=== PATIENT | female | born 1955 | race Two or more races ===

== ENCOUNTER 2023-06-27 18:00 | Emergency (ER) | payer MEDICARE, MEDICAID ==
[~2023-06-27] VITALS: Ht 152.4 cm; Wt 78.7 kg
[2023-06-27 18:10] VITALS: BP 183/93; PULSE 104; RESP 18; O2SAT 96
[2023-06-27] MEDS ORDERED: DexAMETHasone 4 MG TAB PO ONE (21:00)
[2023-06-27] MEDS ORDERED: HYDROcodone-ACET 5/325MG TAB PO ONE (21:00)
[2023-06-27] MEDS ORDERED: HYDR-4902 PO (21:07)
== END 2023-06-28 00:51 | disposition home or self-care (01) ==
LOC: ER 18:00
DX: M25.512 Pain in left shoulder (principal); M62.838 Other muscle spasm; I10 Essential (primary) hypertension; E11.9 Type 2 diabetes mellitus without complications
CPT/HCPCS: 72040; 73030

== ENCOUNTER → 2024-08-09 | Outpatient (CLI) | payer MEDICARE, MEDICAID ==
[~2024-08-09] MED LIST: ACET500T58 PO; BACDST PO; CEPH500C PO; HYDR-4902 PO; METH-1182 PO; NAPR-746 PO
[2024-08-09 10:43] LABS: Basophils # (auto) 0 10 ^3/uL (0-0.2); Basophils % (auto) 0.2 % (0.0-2.0); Eosinophils # (auto) 0.1 10 ^3/uL (0-0.8); Eosinophils % (auto) 0.9 % (0.0-7.0); Hematocrit 38.9 % (36.0-46.0); Hemoglobin 12.9 g/dL (12.2-16.2); Lymphocytes # (auto) 2.3 10 ^3/uL (0.4-5.4); Lymphocytes % (auto) 38.4 % (10.0-50.0); Mean Corpuscular Hemoglobin 29.5 pg (28.0-32.0); Mean Corpuscular Hgb Conc. 33.2 g/dL (32.0-36.0); Monocytes # (auto) 0.3 10 ^3/uL (0-1.3); Monocytes % (auto) 5.6 % (0.0-12.0); Neutrophils # (auto) 3.3 10 ^3/uL (1.6-8.6); Neutrophils % (auto) 54.9 % (37.0-80.0); Nucleated Red Blood Cells % 0.1 %; Platelet Count (auto) 235 10^3/uL (140-450); Red Blood Cells 4.38 10^6/uL (4.0-5.20); Red Cell Distribution Width 14.1 % (11.8-14.3); White Blood Cell 6.1 10^3/uL (4.4-10.8)
[2024-08-09 11:31] LABS: Alanine Aminotransferase 26 U/L (7-40); Alkaline Phosphatase 100 U/L (46-116); Anion Gap 9 (5-15); BUN/Creatinine Ratio 15.2 (10.0-20.0); Blood Urea Nitrogen 10 mg/dL (9-23); Calcium 9.8 mg/dL (8.7-10.4); Carbon Dioxide 26 mmol/L (20-31); Glucose 100 mg/dL (74-106); LDL Cholesterol 49 mg/dL (< 100); Total Protein 7.1 g/dL (5.7-8.2)
[2024-08-09 11:32] LABS: Albumin 4.7 g/dL (3.2-4.8); Aspartate Aminotransferase 21 U/L (13-40); Bilirubin, Total 0.4 mg/dL (0.2-1.0); Cholesterol 138 mg/dL (< 200)
[2024-08-09 11:35] LABS: Chloride 107 mmol/L (98-107); HDL Cholesterol 64 mg/dL (40-59); Potassium 4.4 mmol/L (3.5-5.1); Sodium 142 mmol/L (136-145); Triglycerides 167 mg/dL (< 150)
[2024-08-09 12:14] LABS: Uric Acid 7.8 mg/dL (3.1-7.8)
== END | disposition home or self-care (01) ==
LOC: LAB 09:47
PROVIDERS: ATTEND Internal Medicine
DX: M10.9 Gout, unspecified (principal); R79.89 Other specified abnormal findings of blood chemistry; Z79.899 Other long term (current) drug therapy
CPT/HCPCS: 36415; 80053; 80061; 82306; 82607; 83036; 84443; 84550; 85025

== ENCOUNTER 2024-09-08 06:22 | Inpatient (IN) | payer MEDICARE, MEDICAID ==
[2024-09-06 11:50] LABS: Basophils # (auto) 0 10 ^3/uL (0-0.2); Basophils % (auto) 0.2 % (0.0-2.0); Eosinophils # (auto) 0 10 ^3/uL (0-0.8); Eosinophils % (auto) 0.6 % (0.0-7.0); Hematocrit 39.2 % (36.0-46.0); Lymphocytes % (auto) 23.9 % (10.0-50.0); Mean Corpuscular Hemoglobin 29.2 pg (28.0-32.0); Mean Corpuscular Hgb Conc. 33.1 g/dL (32.0-36.0); Monocytes # (auto) 0.5 10 ^3/uL (0-1.3); Monocytes % (auto) 5.5 % (0.0-12.0); Neutrophils # (auto) 5.7 10 ^3/uL (1.6-8.6); Neutrophils % (auto) 69.8 % (37.0-80.0); Platelet Count (auto) 254 10^3/uL (140-450); Red Blood Cells 4.45 10^6/uL (4.0-5.20); Red Cell Distribution Width 14.2 % (11.8-14.3); White Blood Cell 8.2 10^3/uL (4.4-10.8)
[2024-09-06 12:07] LABS: Urine Bacteria FEW /hpf (None Seen); Urine Blood Negative /uL (Negative); Urine Clarity Clear (Clear); Urine Color Colorless (Yellow); Urine Hyaline Cast FEW /lpf (0 - 2); Urine Protein, UAD Negative (Negative); Urine Specific Gravity 1.008 (1.001-1.035); Urine Squamous Epithelial Cell FEW /hpf (<5); Urine Urobilinogen Normal (Negative); Urine WBC 10 /HPF (0-5); Urine pH 5.5 (5.0-9.0)
[2024-09-06 12:22] LABS: Alanine Aminotransferase 21 U/L (7-40); Albumin 4.8 g/dL (3.2-4.8); Alkaline Phosphatase 129 U/L (46-116); Anion Gap 10 (5-15); Aspartate Aminotransferase 17 U/L (13-40); BUN/Creatinine Ratio 16.4 (10.0-20.0); Bilirubin, Total 0.4 mg/dL (0.2-1.0); Blood Urea Nitrogen 10 mg/dL (9-23); Calcium 10.9 mg/dL (8.7-10.4); Carbon Dioxide 26 mmol/L (20-31); Chloride 103 mmol/L (98-107); Glucose 145 mg/dL (74-106); Potassium 4.3 mmol/L (3.5-5.1); Sodium 139 mmol/L (136-145); Total Protein 7.6 g/dL (5.7-8.2)
[~2024-09-08] VITALS: Ht 152.4 cm; Wt 82.6 kg
[~2024-09-08 06:22] MED LIST changes: -ACET500T58 PO; +ASPI81CH59 PO; +ATOR20TA50 PO; -BACDST PO; -CEPH500C PO; +GLIP5TAB21 PO; -HYDR-4902 PO; +LISI20TA56 PO; +METF-370 PO; -METH-1182 PO; -NAPR-746 PO
[2024-09-08] MEDS ORDERED: LIDOCAINE 1% INJ PF 5ML AMP ONE (07:50)
[2024-09-08] MEDS ORDERED: KETOROLAC TROMETH 30 MG/ML 1ML VIAL ONE (07:50)
[2024-09-08] MEDS ORDERED: ONDANSETRON HCL 4 MG/2 ML VIAL ONE (07:50)
[2024-09-08] MEDS ORDERED: PROPOFOL 10 MG/ML 20 ML IV ONE (07:50)
[2024-09-08] MEDS ORDERED: DexAMETHasone SOD PHOS 10MG/1ML VIAL INJ ONE ×2 (07:50→10:02)
[2024-09-08] MEDS ORDERED: ROCURONIUM 10MG/ML 10ML VIAL IV ONE (07:50)
[2024-09-08] MEDS ORDERED: SUGAMMADEX 200mg/2ml Vial (100MG/ML) IV ONE (07:50)
[2024-09-08] MEDS ORDERED: LIDOCAINE 2% (LOCAL ANESTH.) PF 5ml SDV ONE (07:50)
[2024-09-08] MEDS ORDERED: GLYCOPYRROLATE 0.2 MG/ML 1ML VIAL ONE (07:50)
[2024-09-08] MEDS ORDERED: fentaNYL CITRATE 100 MCG/2 ML VL ONE (07:51)
[2024-09-08] MEDS ORDERED: KETAMINE 50mg/ML 1ml syringe ONE (07:51)
[2024-09-08 08:00] LABS: INR 0.97 (0.9-1.15); Partial Thromboplastin Time 28.2 SEC (24.5-34.5); Prothrombin Time 10.3 sec (9.3-11.8)
[2024-09-08] MEDS: CELECOXIB 100 MG CAP ONE (08:32)
[2024-09-08] MEDS: GABAPENTIN 300 MG CAP ONE (08:33)
[2024-09-08] MEDS: CELECOXIB 100 MG CAP PO ONE (08:35)
[2024-09-08] MEDS: ACETAMINOPHEN IV 1000 MG/100ML (10MG/ML) IV ONE (08:35)
[2024-09-08] MEDS: GABAPENTIN 300 MG CAP PO ONE (08:35)
[2024-09-08] MEDS: ACETAMINOPHEN IV 100 ML IV ONE (09:01)
[2024-09-08] MEDS: ceFAZolin 2 GM/D5W50ml 50 ML IV ONE (09:02)
[2024-09-08] MEDS: LIDOCAINE W/ EPINEPHRINE 1% 20ML VIAL ONE (09:17)
[2024-09-08] MEDS: BUPIVACAINE 0.25% INJ 50ML VIAL ONE (09:17)
[2024-09-08] MEDS ORDERED: EPINEPHrine HCL 1 MG/1 ML AMP ONE (10:02)
[2024-09-08] MEDS ORDERED: D5W/SOD CHL 0.45%/KCL 20MEQ 1,000 ML IV SCH (11:15)
[2024-09-08 11:21] VITALS: PULSE 91; RESP 13; O2SAT 95
[2024-09-08] MEDS ORDERED: ONDANSETRON HCL 4 MG/2 ML VIAL IV PRN (11:30)
[2024-09-08] MEDS ORDERED: FLUMAZENIL 0.1 MG/ML INJ 10ML MDV IV PRN (11:30)
[2024-09-08] MEDS ORDERED: HYDROmorphone HCL 2 MG/ML VL/or syr IV PRN (11:30)
[2024-09-08] MEDS ORDERED: ePHEDrine SULFATE 50 MG/ML AMP IV PRN (11:30)
[2024-09-08] MEDS ORDERED: NALOXONE HCL 0.4 MG/ML VIAL IV PRN (11:30)
[2024-09-08] MEDS ORDERED: fentaNYL CITRATE 100 MCG/2 ML VL IV PRN (11:30)
[2024-09-08] MEDS ORDERED: hydrALAZINE HCL 20 MG/ML VL IV PRN ×2 (11:30→13:30)
--- NOTE | 2024-09-08 12:08 | DVHOP ---
DATE OF SURGERY: 09/08/2024 PREOPERATIVE DIAGNOSES: Extruded mesh, abdominal wall; recurrent ventral hernia. POSTOPERATIVE DIAGNOSES: Morbid obesity; adhesions, small bowel to anterior abdominal wall and foreign body adhesions to small bowel. OPERATIONS PERFORMED: * Excision of extruded infected mesh, abdominal wall. * Lysis of adhesions. * Repair enterotomies (x 2). * Repair of recurrent ventral hernia. SURGEON: Colin Cano MD ANESTHESIA: General endotracheal. ANESTHESIOLOGIST: Obinna Nicholson. DESCRIPTION OF PROCEDURE: Under general endotracheal anesthesia administered by Obinna Nicholson, the mesh was excised with circumferential incision deepened with electrocautery through much adipose tissue. The mesh was densely adherent to several loops of small bowel, which were adherent to the anterior abdominal wall. On palpation, the entire abdominal wall appears to be covered with a mesh, which was separate from the mesh that was excised. The loops of bowel were densely fused with the abdominal wall and mobilization of the bowel incurred two enterotomies that were approximately 1 cm in diameter. These were repaired immediately with no spill of enteric contents. The repair consisted of a 3-0 Monocryl suture for the inner layer and 3-0 Prolene suture for the outer layer. The lysis of adhesions was tedious and meticulously performed with great caution exercised so as not to incur any unnecessary bowel injuries. The bowel was inspected on numerous occasions to assure no further enterotomies that were in need of repair, none were encountered. The mesh having been removed resulted in visualization of the edge of the hernia, which essentially consisted of mesh fused with fascia and fused with the skin. Layer separation was then performed extensively. The wound was irrigated. Irrigant was aspirated. The repair of the defect, which measured approximately 12 cm in length and 6 cm in width. The edges were then repaired using #1 double-stranded Prolene suture, which was done in a matter of horizontal mattress suture creating a ledge of tissue, which was then secondarily sutured with interrupted Ethibond sutures. The crest of the tissues thus created protected the underlying bowel. For further protection of the bowel, a sheet of Interceed was placed on the bowels interposing the Interceed between the abdominal wall and the bowel as there was no omentum that was left within the peritoneal cavity visualized. A 10 mm Nitesh-Tipton drain was placed into the cavity of the subcutaneous tissues created by the layer separation technique. Subsequently, 2-0 Monocryl sutures were used for approximation of the subcutaneous tissues over the drain and metallic skin rizwana were used for approximation of skin edges. The patient remained hemodynamically stable throughout the procedure; however, due to the extensive nature of the procedure and the bowel repair, the patient will be remaining in the hospital. The patient's son was not in the waiting room and several attempts at contacting him at the phone number given were not answered. MD MYA García/LOLI TID: [id number] RECEIPT: [id number]
[2024-09-08] MEDS ORDERED: PHENYLEPHRINE HCL 10 MG/ML VL IV ONE (12:52)
--- NOTE | 2024-09-08 13:29 | DVHHP2 ---
Review of Systems Allergies: Coded Allergies: NO KNOWN ALLERGIES (Unverified , 06/27/23) Medications Current Medications Medications Dose Ordered Sig/Lili Route Start Time Stop Time Status Last Admin Dose Admin Potassium Chloride/Dextrose/ Sod Cl 1,000 ml @ 120 mls/hr Q8H20M IV 09/08/24 11:15 Levofloxacin/ Dextrose 100 ml @ 100 mls/hr DAILY IV 09/09/24 10:00 Hydromorphone HCl 1 mg Q3HPRN PRN IV 09/08/24 11:15 Pantoprazole Sodium 40 mg DAILY IV 09/09/24 10:00 Ondansetron HCl 4 mg Q4HPRN PRN IV 09/08/24 11:15 Oxycodone HCl 10 mg ONCE PRN PO 09/08/24 11:30 09/08/24 14:00 Exam Vital Signs Vital Signs Date Time Temp Pulse Resp B/P (MAP) Pulse Ox O2 Delivery O2 Flow Rate FiO2 09/08/24 11:21 91 13 95 Room Air 09/08/24 11:21 95 09/08/24 11:21 98.2 151/76 (101) 98.2 Labs/Xrays Labs Test 09/08/24 11:45 09/08/24 07:36 09/06/24 11:40 Range/Units POC Glucose 236 H 70-106 mg/dl Prothrombin Time 10.3 9.3-11.8 sec Prothrombin Time INR 0.97 0.9-1.15 Activated Partial Thromboplast Time 28.2 24.5-34.5 SEC White Blood Count 8.2 4.4-10.8 10^3/uL Red Blood Count 4.45 4.0-5.20 10^6/uL Hemoglobin 13.0 12.2-16.2 g/dL Hematocrit 39.2 36.0-46.0 % Mean Corpuscular Volume 88.0 80.0-100.0 fL Mean Corpuscular Hemoglobin 29.2 28.0-32.0 pg Mean Corpuscular Hemoglobin Concent 33.1 32.0-36.0 g/dL Red Cell Distribution Width 14.2 11.8-14.3 % Platelet Count 254 140-450 10^3/uL Mean Platelet Volume 9.0 6.9-10.8 fL Neutrophils (%) (Auto) 69.8 37.0-80.0 % Lymphocytes (%) (Auto) 23.9 10.0-50.0 % Monocytes (%) (Auto) 5.5 0.0-12.0 % Eosinophils (%) (Auto) 0.6 0.0-7.0 % Basophils (%) (Auto) 0.2 0.0-2.0 % Neutrophils # (Auto) 5.7 1.6-8.6 10 ^3/uL Lymphocytes # (Auto) 2.0 0.4-5.4 10 ^3/uL Monocytes # (Auto) 0.5 0-1.3 10 ^3/uL Eosinophils # (Auto) 0 0-0.8 10 ^3/uL Basophils # (Auto) 0 0-0.2 10 ^3/uL Nucleated Red Blood Cells 0.0 % Urine Color Colorless Yellow Urine Clarity Clear Clear Urine pH 5.5 5.0-9.0 Urine Specific [place] 1.008 1.001-1.035 Urine Protein Negative Negative Urine Ketones Negative Negative Urine Blood Negative Negative /uL Urine Nitrite Negative Negative Urine Bilirubin Negative Negative Urine Urobilinogen Normal Negative mg/dL Urine Leukocyte Esterase 2+ Negative /uL Urine RBC 1 0 - 4 /hpf Urine Microscopic WBC 10 H 0-5 /HPF Urine Squamous Epithelial Cells Few <5 /hpf Urine Bacteria Few H None Seen /hpf Urine Hyaline Casts Few 0 - 2 /lpf Urine Glucose Normal Normal mg/dL Sodium Level 139 136-145 mmol/L Potassium Level 4.3 3.5-5.1 mmol/L Chloride Level 103 98-107 mmol/L Carbon Dioxide Level 26 20-31 mmol/L Anion Gap 10 5-15 Blood Urea Nitrogen 10 9-23 mg/dL Creatinine 0.61 0.550-1.02 mg/dL Glomerular Filtration Rate Calc 97 >90 mL/min BUN/Creatinine Ratio 16.4 10.0-20.0 Serum Glucose 145 H 74-106 mg/dL Calcium Level 10.9 H 8.7-10.4 mg/dL Total Bilirubin 0.4 0.2-1.0 mg/dL Aspartate Amino Transferase (AST) 17 13-40 U/L Alanine Aminotransferase (ALT) 21 7-40 U/L Alkaline Phosphatase 129 H 46-116 U/L Total Protein 7.6 5.7-8.2 g/dL Albumin 4.8 3.2-4.8 g/dL Assessment/Plan Assessment/Plan see dictated note Plan discussed with: Patient Date of Service: September 08, 2024 Billing Provider: GRACIELA GORE MD Common Visit Codes: [id number] INP/OBS CARE (HIGH) GRACIELA GORE MD September 08, 2024 13:29
[2024-09-08] MEDS: D5W/SOD CHL 0.45%/KCL 20MEQ 1,000 ML IV SCH (13:30)
[2024-09-08] MEDS ORDERED: DEXTROSE (50%) 50ML SYRG IV PRN (13:30)
[2024-09-08] MEDS: oxyCODONE HCL 5MG TAB PO PRN (13:33)
--- NOTE | 2024-09-08 13:40 | DVHHP ---
ADMIT DATE: 09/08/2024 HISTORY OF PRESENT ILLNESS: The patient is a 69-year-old lady who is admitted after she underwent surgery for removal of infected hernia mesh and repair of a ventral hernia. The patient at this time denies any significant pain. No chest pain. No shortness of breath. No nausea or vomiting. REVIEW OF SYSTEMS: Review of rest of systems otherwise currently negative. PAST MEDICAL HISTORY: Significant for diabetes, hypertension and hyperlipidemia. MEDICATIONS: Include aspirin, Lipitor, glipizide, metformin and lisinopril. ALLERGIES: No known drug allergies. SOCIAL HISTORY: Quit smoking. Lives at home with her family. FAMILY HISTORY: Negative. PHYSICAL EXAMINATION: GENERAL: The patient is awake and alert. VITAL SIGNS: Temperature 98.2, pulse 91 per minute, blood pressure 151/76. SHEENT: Unremarkable. NECK: There is no JVD, no pedal edema. LUNGS: Equal bilaterally. No added sounds. CARDIOVASCULAR SYSTEM: S1 and S2 is regular without murmurs. ABDOMEN: Soft. Bowel sounds are hypoactive. There is a ERNESTINA drain in place. NEUROLOGIC: Nonfocal. MUSCULOSKELETAL: Normal. ASSESSMENT AND PLAN: * Diabetes mellitus for which the patient will be placed on sliding scale insulin and hemoglobin A1c will be checked. * Hypertension for which she will be put on p.r.n. hydralazine. * Obesity. * Hyperlipidemia. * Status post hernia repair surgery. The patient will be placed on pain medications and IV fluids. MD GAURAV Jett/KAREEM TID: [id number] RECEIPT: [id number]
[2024-09-08 16:38] VITALS: BP 132/82; PULSE 69; RESP 20; TEMP 97.4; O2SAT 94
[2024-09-08 17:00] VITALS: BP 132/82; PULSE 69; RESP 20; TEMP 97.7; O2SAT 94
[2024-09-08] MEDS: InsuLIN REG 1unit/0.01ml Soln (100units/ml) SC SCH (18:00)
[2024-09-08] MEDS: ACCU-CHEK COMFORT CURVE STRIP VI SCH (18:00)
[2024-09-08] MEDS: HYDROmorphone HCL 2 MG/ML VL/or syr IV PRN (18:55)
[2024-09-08] MEDS: ONDANSETRON HCL 4 MG/2 ML VIAL IV PRN (20:40)
[2024-09-08 21:00] VITALS: BP 116/71; PULSE 71; RESP 18; TEMP 97.9; O2SAT 92
[2024-09-09] VITALS (7 sets, daily range): BP systolic 99–123; BP diastolic 66–75; PULSE 62–79; RESP 16–18; TEMP 97.3–98.7; O2SAT 90–98
[2024-09-09 05:54] LABS: Basophils # (auto) 0 10 ^3/uL (0-0.2); Basophils % (auto) 0.1 % (0.0-2.0); Eosinophils # (auto) 0 10 ^3/uL (0-0.8); Hematocrit 32.3 % (36.0-46.0); Hemoglobin 10.7 g/dL (12.2-16.2); Lymphocytes # (auto) 1.1 10 ^3/uL (0.4-5.4); Lymphocytes % (auto) 8.7 % (10.0-50.0); Mean Corpuscular Hemoglobin 29.1 pg (28.0-32.0); Mean Corpuscular Volume 88.2 fL (80.0-100.0); Monocytes # (auto) 0.7 10 ^3/uL (0-1.3); Monocytes % (auto) 5.4 % (0.0-12.0); Neutrophils # (auto) 11.2 10 ^3/uL (1.6-8.6); Neutrophils % (auto) 85.8 % (37.0-80.0); Platelet Count (auto) 216 10^3/uL (140-450); Red Blood Cells 3.67 10^6/uL (4.0-5.20); Red Cell Distribution Width 14.2 % (11.8-14.3); White Blood Cell 13.1 10^3/uL (4.4-10.8)
[2024-09-09 06:24] LABS: Alanine Aminotransferase 11 U/L (7-40); Albumin 3.8 g/dL (3.2-4.8); Alkaline Phosphatase 90 U/L (46-116); Anion Gap 10 (5-15); BUN/Creatinine Ratio 23.3 (10.0-20.0); Bilirubin, Total 0.4 mg/dL (0.2-1.0); Blood Urea Nitrogen 14 mg/dL (9-23); Carbon Dioxide 23 mmol/L (20-31); Chloride 104 mmol/L (98-107); Potassium 4.4 mmol/L (3.5-5.1); Sodium 137 mmol/L (136-145)
[2024-09-09 06:34] LABS: Aspartate Aminotransferase 12 U/L (13-40); Calcium 8.4 mg/dL (8.7-10.4); Glucose 231 mg/dL (74-106)
--- NOTE | 2024-09-09 06:35 | DVH ---
EXAM: XR Chest, 1 View CLINICAL INDICATION: htn TECHNIQUE: Frontal view of the chest. COMPARISON: None FINDINGS: LUNGS AND PLEURAL SPACES: See below. HEART: Cardiomegaly with mild congestion. MEDIASTINUM: Unremarkable. Normal mediastinal contour. BONES/JOINTS: Unremarkable. No acute fracture. OTHER FINDINGS: . IMPRESSION: Cardiomegaly with mild congestion.
[2024-09-09] MEDS: PANTOPRAZOLE 40 MG/10 ML VIAL INJ IV SCH (09:36)
[2024-09-09] MEDS: levoFLOXacin 500MG 100 ML IV SCH (09:36)
--- NOTE | 2024-09-09 10:19 | DVHPN2 ---
Progress Note Date Seen: September 09, 2024 Medical Necessity Reason Pt with a Central, PICC or Fol: No Subjective Patient reports: No new complaints Review of Systems: HEENT:Normal, CVS:Normal, RESPIRATORY:Normal, GI:Normal, :Normal, MSK:Normal, NEURO:Normal Objective vital signs Vital Sign Date Time Temp Pulse Resp B/P (MAP) Pulse Ox O2 Delivery O2 Flow Rate FiO2 09/09/24 08:41 97.3 65 17 123/70 (87) 98 97.3 09/09/24 08:00 Room Air* 0 21 Total Intake and Output 09/08/24 09/08/24 09/09/24 15:00 23:00 07:00 Intake Total 250 ml 200 ml 750 ml Output Total 30 ml 5 ml Balance 220 ml 195 ml 750 ml medications Current Medications Medications Dose Ordered Sig/Lili Route Start Time Stop Time Status Last Admin Dose Admin Levofloxacin/ Dextrose 100 ml @ 100 mls/hr DAILY IV 09/09/24 10:00 09/09/24 09:36 100 MLS/HR Hydromorphone HCl 1 mg Q3HPRN PRN IV 09/08/24 11:15 09/08/24 18:55 1 MG Pantoprazole Sodium 40 mg DAILY IV 09/09/24 10:00 09/09/24 09:36 40 MG Ondansetron HCl 4 mg Q4HPRN PRN IV 09/08/24 11:15 09/08/24 20:40 4 MG Potassium Chloride/Dextrose/ Sod Cl 1,000 ml @ 100 mls/hr Q10H IV 09/08/24 13:30 09/09/24 09:37 100 MLS/HR Diagnostic Test (Pha) 1 strip Q6HR 09/08/24 18:00 09/09/24 05:35 1 STRIP Insulin Human Regular Q6HR SC 09/08/24 18:00 09/09/24 05:39 4 UNITS Dextrose 50 ml UD PRN IV 09/08/24 13:30 Hydralazine HCl 10 mg Q6HP PRN IV 09/08/24 13:30 Examination: GENERAL:Normal, HEENT:Normal, NECK:Normal, LUNGS:Normal, CVS:Normal, ABDOMEN:Normal, ABDOMEN:Abnormal (matthew drain), MSK:Normal, SKIN:Normal, NEURO:Normal, :Normal laboratory and microbiology Laboratory Tests 09/09/24 05:35 Test 09/09/24 05:35 Range/Units Serum Glucose 231 H 74-106 mg/dL Microbiology Date/Time Source Procedure Growth Status 09/08/24 10:53 Surgery Anaerobic Culture Pending Resulted 09/08/24 10:53 Surgery Aerobic Culture - Preliminary Resulted Problem List/Assessment/Plan Problem List/Assessment/Plan * Diabetes mellitus for which the patient will be placed on sliding scale insulin and hemoglobin A1c will be checked. * Hypertension for which she will be put on p.r.n. hydralazine. * Obesity. * Hyperlipidemia. * Status post hernia repair surgery. The patient will be placed on pain medications and IV fluids- staph aureus- id pending, iv vanc empiric, levaquin advance care planning- full code- time spent 18 mins Plan discussed with: Patient My Orders My Orders Orders - GRACIELA GORE MD Procedure Category Date Status Time D5w/Sod Chl 0.45%/Kcl PHA 09/08/24 In Process 20meq 13:30 Admit ADMIT 09/08/24 Transmitted 13:24 Glucose Blood PHA 09/08/24 In Process (Accu-Chek Comfort 18:00 Insulin R (Human) PHA 09/08/24 In Process (Insulin R) 18:00 Dextrose 50% Syringe PHA 09/08/24 In Process 13:30 Hydralazine Injection PHA 09/08/24 In Process (Apresoline Inject 13:30 Chest Portable XY 09/09/24 Resulted 06:00 Pt Request For Service PT 09/09/24 Verified 10:16 Vancomycin Per PHA 09/09/24 Verified Pharmacy 10:30 Basic Metabolic Panel LAB 09/10/24 Verified 06:00 Complete Blood Count LAB 09/10/24 Verified 06:00 Date of Service: September 09, 2024 Billing Provider: GRACIELA GORE MD Common Visit Codes: [id number] INP/OBS CARE(HIGH) Secondary Visit Codes: [id number] CARE PLAN 30 MINUTES GRACIELA GORE MD September 09, 2024 10:19
[2024-09-09] MEDS ORDERED: VANCOMYCIN PER PHARMACY 0 MG IV SCH (10:30)
[2024-09-09] MEDS: VANCOMYCIN 1GM/200ML PM 200 ML IV ONE (10:53)
--- NOTE | 2024-09-09 13:18 | DVHPN2 ---
Progress Note Date Seen: September 09, 2024 Medical Necessity Reason Pt with a Central, PICC or Fol: No Objective vital signs Vital Sign Date Time Temp Pulse Resp B/P (MAP) Pulse Ox O2 Delivery O2 Flow Rate FiO2 09/09/24 12:40 97.3 62 16 120/75 (90) 93 97.3 09/09/24 08:00 Room Air* 0 21 Total Intake and Output 09/08/24 09/08/24 09/09/24 15:00 23:00 07:00 Intake Total 250 ml 200 ml 750 ml Output Total 30 ml 5 ml Balance 220 ml 195 ml 750 ml medications Current Medications Medications Dose Ordered Sig/Lili Route Start Time Stop Time Status Last Admin Dose Admin Levofloxacin/ Dextrose 100 ml @ 100 mls/hr DAILY IV 09/09/24 10:00 09/09/24 09:36 100 MLS/HR Hydromorphone HCl 1 mg Q3HPRN PRN IV 09/08/24 11:15 09/08/24 18:55 1 MG Pantoprazole Sodium 40 mg DAILY IV 09/09/24 10:00 09/09/24 09:36 40 MG Ondansetron HCl 4 mg Q4HPRN PRN IV 09/08/24 11:15 09/08/24 20:40 4 MG Potassium Chloride/Dextrose/ Sod Cl 1,000 ml @ 100 mls/hr Q10H IV 09/08/24 13:30 09/09/24 09:37 100 MLS/HR Diagnostic Test (Pha) 1 strip Q6HR 09/08/24 18:00 09/09/24 12:00 1 STRIP Insulin Human Regular Q6HR SC 09/08/24 18:00 09/09/24 12:01 3 UNITS Dextrose 50 ml UD PRN IV 09/08/24 13:30 Hydralazine HCl 10 mg Q6HP PRN IV 09/08/24 13:30 Vancomycin HCl 0 ml @ 0 mls/hr UD IV 09/09/24 10:30 laboratory and microbiology Laboratory Tests 09/09/24 05:35 Test 09/09/24 05:35 Range/Units Serum Glucose 231 H 74-106 mg/dL Problem List/Assessment/Plan Problem List/Assessment/Plan 09/09/24 feels well, afebrile, normotensive, abdomen soft, nn distended, appropriately tender, explained her operation to her , no flatus or BM, she needs to remain NPO except ice chips till bowel activity returns. Plan discussed with: Patient YANELIS TURNER MD September 09, 2024 13:18
[2024-09-09] MEDS: VANCOMYCIN 750MG KIT 100 ML IV SCH (23:03)
[2024-09-10] VITALS (7 sets, daily range): BP systolic 95–128; BP diastolic 45–82; PULSE 84–108; RESP 16–18; TEMP 97.3–102.1; O2SAT 94–100
[2024-09-10] MEDS ORDERED: ACETAMINOPHEN 325 MG TAB PO PRN (05:15)
[2024-09-10] MEDS: ACETAMINOPHEN 650 MG RECT SUPP PR PRN (05:25)
[2024-09-10 06:27] LABS: Chloride 103 mmol/L (98-107); Potassium 4.3 mmol/L (3.5-5.1); Sodium 138 mmol/L (136-145)
[2024-09-10 06:28] LABS: Anion Gap 11 (5-15); Calcium 8.4 mg/dL (8.7-10.4); Carbon Dioxide 24 mmol/L (20-31)
[2024-09-10 06:33] LABS: Blood Urea Nitrogen 12 mg/dL (9-23)
[2024-09-10 06:41] LABS: Glucose 162 mg/dL (74-106)
[2024-09-10 07:01] LABS: Basophils # (auto) 0 10 ^3/uL (0-0.2); Basophils % (auto) 0.4 % (0.0-2.0); Eosinophils # (auto) 0 10 ^3/uL (0-0.8); Eosinophils % (auto) 0.1 % (0.0-7.0); Hemoglobin 11.6 g/dL (12.2-16.2); Lymphocytes # (auto) 1.6 10 ^3/uL (0.4-5.4); Lymphocytes % (auto) 12.6 % (10.0-50.0); Mean Corpuscular Hemoglobin 29.8 pg (28.0-32.0); Mean Corpuscular Hgb Conc. 33.2 g/dL (32.0-36.0); Mean Corpuscular Volume 89.7 fL (80.0-100.0); Monocytes # (auto) 1.1 10 ^3/uL (0-1.3); Monocytes % (auto) 8.2 % (0.0-12.0); Neutrophils # (auto) 10.2 10 ^3/uL (1.6-8.6); Neutrophils % (auto) 78.7 % (37.0-80.0); Platelet Count (auto) 190 10^3/uL (140-450); Red Cell Distribution Width 14.3 % (11.8-14.3); White Blood Cell 12.9 10^3/uL (4.4-10.8)
--- NOTE | 2024-09-10 11:01 | DVHPN2 ---
Subjective Date Seen: September 10, 2024 Post op day Post op day: 2 Patient reports: No new complaints General: Normal HNT: Normal Cardiovascular: Normal Respiratory: Normal Gastrointestinal: Normal Genitourinary: Normal Musculoskeletal: Normal Neurological: Normal Objective Vitals Vital Sign Date Time Temp Pulse Resp B/P (MAP) Pulse Ox O2 Delivery O2 Flow Rate FiO2 09/10/24 07:34 96 Room Air* 0 21 09/10/24 06:25 99.0 09/10/24 05:00 108 18 106/56 (73) Total Intake and Output 09/09/24 09/09/24 09/10/24 15:00 23:00 07:00 Intake Total 0 ml 1400 ml Balance 0 ml 1400 ml Medications Current Medications Medications Dose Ordered Sig/Lili Route Start Time Stop Time Status Last Admin Dose Admin Levofloxacin/ Dextrose 100 ml @ 100 mls/hr DAILY IV 09/09/24 10:00 09/10/24 09:32 100 MLS/HR Hydromorphone HCl 1 mg Q3HPRN PRN IV 09/08/24 11:15 09/09/24 23:54 1 MG Pantoprazole Sodium 40 mg DAILY IV 09/09/24 10:00 09/10/24 09:32 40 MG Ondansetron HCl 4 mg Q4HPRN PRN IV 09/08/24 11:15 09/08/24 20:40 4 MG Potassium Chloride/Dextrose/ Sod Cl 1,000 ml @ 100 mls/hr Q10H IV 09/08/24 13:30 09/10/24 05:29 100 MLS/HR Diagnostic Test (Pha) 1 strip Q6HR 09/08/24 18:00 09/10/24 05:49 1 STRIP Insulin Human Regular Q6HR SC 09/08/24 18:00 09/10/24 05:53 3 UNITS Dextrose 50 ml UD PRN IV 09/08/24 13:30 Hydralazine HCl 10 mg Q6HP PRN IV 09/08/24 13:30 Vancomycin HCl 0 ml @ 0 mls/hr UD IV 09/09/24 10:30 Acetaminophen 650 mg Q6HP PRN SC 09/10/24 05:15 09/10/24 05:25 650 MG Vancomycin HCl 150 ml @ 150 mls/hr Q12H IV 09/10/24 11:00 General: Normal, Well developed, Obese Head/Eyes: Normal ENT: Normal Neck: Normal Lungs: Normal, Normal inspection Cardiovascular: Normal, Regular rate and rhythm, Normal heart sound Abdominal: Normal, Soft Skin: Other (abdominal wound clean dry and intact ) Labs and Microbiology Laboratory Tests 09/10/24 04:55 Test 09/10/24 04:55 Range/Units Serum Glucose 162 H 74-106 mg/dL Ass/Plan Problem List 09/09/24 feels well, afebrile, normotensive, abdomen soft, nn distended, appropriately tender, explained her operation to her , no flatus or BM, she needs to remain NPO except ice chips till bowel activity returns. Assessment/Plan s/p Excision of extruded infected mesh, abdominal wall. * Lysis of adhesions. * Repair enterotomies (x 2). * Repair of recurrent ventral hernia. Post op day 2 wound clean dry and intact abdomen soft , non distended, appropriately tender denies nausea Plan: clear liquids no more than 50cc ambulate wound dressing may stay off Prognosis: Good Plan discussed with Dr. Cano Visit Coding Surgery Date of Service if different f: September 10, 2024 Billing Provider: YANELIS CANO MD Surgery Visit Codes: [id number] INP/OBS CARE(HIGH) ASHLEY POPE NP September 10, 2024 11:01
[2024-09-10] MEDS: VANCOMYCIN 750mg/150ml 150 ML IV SCH (11:23)
[2024-09-10] MEDS: MEROPENEM 1GM IVPB 50 ML IV SCH (15:31)
--- NOTE | 2024-09-10 17:56 | DVHPN2 ---
Subjective in bed resting Changes from previous H/P or p: No Changes Objective Vitals Vital Signs Date Time Temp Pulse Resp B/P (MAP) Pulse Ox O2 Delivery O2 Flow Rate FiO2 09/10/24 17:22 98.3 84 16 118/59 (78) 94 98.3 09/10/24 07:34 Room Air* 0 21 Intake/Output Intake and Output 09/10/24 07:00 Intake Total 1400 ml Balance 1400 ml Intake Oral 800 ml IV Total 600 ml # Voids 10 General Appearance: Alert, Oriented X3 Lungs: Clear to auscultation Cardiovascular: Regular rate, Normal S1 Medications Current Medications Medications Dose Ordered Sig/Lili Route Start Time Stop Time Status Last Admin Dose Admin Levofloxacin/ Dextrose 100 ml @ 100 mls/hr DAILY IV 09/09/24 10:00 09/10/24 09:32 100 MLS/HR Hydromorphone HCl 1 mg Q3HPRN PRN IV 09/08/24 11:15 09/10/24 16:49 1 MG Pantoprazole Sodium 40 mg DAILY IV 09/09/24 10:00 09/10/24 09:32 40 MG Ondansetron HCl 4 mg Q4HPRN PRN IV 09/08/24 11:15 09/08/24 20:40 4 MG Potassium Chloride/Dextrose/ Sod Cl 1,000 ml @ 100 mls/hr Q10H IV 09/08/24 13:30 09/10/24 05:29 100 MLS/HR Diagnostic Test (Pha) 1 strip Q6HR 09/08/24 18:00 09/10/24 17:49 1 STRIP Insulin Human Regular Q6HR SC 09/08/24 18:00 09/10/24 17:49 3 UNITS Dextrose 50 ml UD PRN IV 09/08/24 13:30 Hydralazine HCl 10 mg Q6HP PRN IV 09/08/24 13:30 Vancomycin HCl 0 ml @ 0 mls/hr UD IV 09/09/24 10:30 Acetaminophen 650 mg Q6HP PRN ID 09/10/24 05:15 09/10/24 05:25 650 MG Vancomycin HCl 150 ml @ 150 mls/hr Q12H IV 09/10/24 11:00 09/10/24 11:23 150 MLS/HR Meropenem 50 ml @ 17 mls/hr Q8H IV 09/10/24 16:00 09/10/24 15:31 17 MLS/HR Laboratory Results Laboratory Tests 09/10/24 04:55 Chemistry Test 09/10/24 04:55 Calcium Level 8.4 mg/dL (8.7-10.4) L Urinalysis Test 09/06/24 11:40 Urine Color Colorless (Yellow) Urine Clarity Clear (Clear) Urine pH 5.5 (5.0-9.0) Urine Specific [place] 1.008 (1.001-1.035) Urine Protein Negative (Negative) Urine Ketones Negative (Negative) Urine Blood Negative /uL (Negative) Urine Nitrite Negative (Negative) Urine Bilirubin Negative (Negative) Urine Urobilinogen Normal mg/dL (Negative) Urine Leukocyte Esterase 2+ /uL (Negative) Urine RBC 1 /hpf (0 - 4) Urine Microscopic WBC 10 /HPF (0-5) H Urine Squamous Epithelial Cells Few /hpf (<5) Urine Bacteria Few /hpf (None Seen) H Urine Hyaline Casts Few /lpf (0 - 2) Urine Glucose Normal mg/dL (Normal) Microbiology Microbiology Date/Time Source Procedure Growth Status 09/08/24 10:53 Surgery Anaerobic Culture - Preliminary Resulted 09/08/24 10:53 Aerobic Culture - Final Methicillin Resistant S.aureus Escherichia coli - ESBL Proteus mirabilis#2 Resulted Assessment/Plan Assessment/Plan * Diabetes mellitus for which the patient will be placed on sliding scale insulin and hemoglobin A1c will be checked. * Hypertension for which she will be put on p.r.n. hydralazine. * Obesity. * Hyperlipidemia. * Status post hernia repair surgery. The patient will be placed on pain medications and IV fluids- staph aureus- id pending, iv vanc empiric, levaquin Plan discussed with: Patient My Orders Orders - HENRI SHORT MD Procedure Category Date Status Time * Infectious Reynolds- CONS 09/10/24 Transmitted Ayush Sullivan 14:56 Meropenem 1gm Ivpb PHA 09/10/24 In Process (Merrem 1gm/ Ns) 16:00 Date of Service: September 10, 2024 Billing Provider: HENRI SHORT MD Common Visit Codes: [id number] INP/OBS CARE(HIGH) HENRI SHORT MD September 10, 2024 17:56
--- NOTE | 2024-09-10 22:20 | DVHINCON2 ---
Date of service: September 10, 2024 Family History: Colon cancer G8 MOTHER Allergies: Coded Allergies: NO KNOWN ALLERGIES (Unverified , 06/27/23) Home Meds Reported Medications Aspirin (Aspirin Low Dose) 81 Mg Chw, 81 MG PO DAILY, TAB.CHEW 09/06/24 Atorvastatin Calcium (ATORVASTATIN CALCIUM) 20 Mg Tab, 20 MG PO DAILY, TAB 09/06/24 Lisinopril (Lisinopril) 20 Mg Tab, 20 MG PO DAILY, TAB 09/06/24 Glipizide (Glipizide) 5 Mg Tab, 5 MG PO BID, TAB 09/06/24 Metformin Hydrochloride (Metformin Hcl) 500 Mg Tab, 500 MG PO BID, TAB 09/06/24 Current Medications Current Medications Medications (Trade) Dose Ordered Sig/Lili Route PRN Reason Start Time Stop Time Status Last Admin Vancomycin HCl 100 ml @ 100 mls/hr Q12H IV 09/09/24 23:00 09/10/24 10:55 DC 09/09/24 23:03 Acetaminophen (Tylenol Tablet) 650 mg Q6HP PRN PO PAIN SCALE 1-3 OR TEMP>100.4 09/10/24 05:15 09/10/24 05:15 DC Acetaminophen (Tylenol Suppository) 650 mg Q6HP PRN CO PAIN SCALE 1-3 OR TEMP>100.4 09/10/24 05:15 09/10/24 05:25 Vancomycin HCl 150 ml @ 150 mls/hr Q12H IV 09/10/24 11:00 09/10/24 11:23 Meropenem 50 ml @ 17 mls/hr Q8H IV 09/10/24 16:00 09/10/24 15:31 Vital Signs Vital Signs Date Time Temp Pulse Resp B/P (MAP) Pulse Ox O2 Delivery O2 Flow Rate FiO2 09/10/24 21:25 92 18 128/82 09/10/24 21:00 97.3 96 97.3 09/10/24 07:34 Room Air* 0 21 Labs/Diagnostic Data Labs Test 09/10/24 17:26 09/10/24 04:55 09/09/24 05:35 09/08/24 07:36 Range/Units POC Glucose 185 H 70-106 mg/dl White Blood Count 12.9 H 4.4-10.8 10^3/uL Red Blood Count 3.90 L 4.0-5.20 10^6/uL Hemoglobin 11.6 L 12.2-16.2 g/dL Hematocrit 35.0 L 36.0-46.0 % Mean Corpuscular Volume 89.7 80.0-100.0 fL Mean Corpuscular Hemoglobin 29.8 28.0-32.0 pg Mean Corpuscular Hemoglobin Concent 33.2 32.0-36.0 g/dL Red Cell Distribution Width 14.3 11.8-14.3 % Platelet Count 190 140-450 10^3/uL Mean Platelet Volume 10.0 6.9-10.8 fL Neutrophils (%) (Auto) 78.7 37.0-80.0 % Lymphocytes (%) (Auto) 12.6 10.0-50.0 % Monocytes (%) (Auto) 8.2 0.0-12.0 % Eosinophils (%) (Auto) 0.1 0.0-7.0 % Basophils (%) (Auto) 0.4 0.0-2.0 % Neutrophils # (Auto) 10.2 H 1.6-8.6 10 ^3/uL Lymphocytes # (Auto) 1.6 0.4-5.4 10 ^3/uL Monocytes # (Auto) 1.1 0-1.3 10 ^3/uL Eosinophils # (Auto) 0 0-0.8 10 ^3/uL Basophils # (Auto) 0 0-0.2 10 ^3/uL Nucleated Red Blood Cells 0.0 % Sodium Level 138 136-145 mmol/L Potassium Level 4.3 3.5-5.1 mmol/L Chloride Level 103 98-107 mmol/L Carbon Dioxide Level 24 20-31 mmol/L Anion Gap 11 5-15 Blood Urea Nitrogen 12 9-23 mg/dL Creatinine 0.60 0.550-1.02 mg/dL Glomerular Filtration Rate Calc 97 >90 mL/min BUN/Creatinine Ratio 20.0 10.0-20.0 Serum Glucose 162 H 74-106 mg/dL Calcium Level 8.4 L 8.7-10.4 mg/dL Hemoglobin A1c 6.6 H <5.7 % A1C Total Bilirubin 0.4 0.2-1.0 mg/dL Aspartate Amino Transferase (AST) 12 L 13-40 U/L Alanine Aminotransferase (ALT) 11 7-40 U/L Alkaline Phosphatase 90 46-116 U/L Total Protein 6.0 5.7-8.2 g/dL Albumin 3.8 3.2-4.8 g/dL Prothrombin Time 10.3 9.3-11.8 sec Prothrombin Time INR 0.97 0.9-1.15 Activated Partial Thromboplast Time 28.2 24.5-34.5 SEC Test 09/06/24 11:40 Range/Units Urine Color Colorless Yellow Urine Clarity Clear Clear Urine pH 5.5 5.0-9.0 Urine Specific [place] 1.008 1.001-1.035 Urine Protein Negative Negative Urine Ketones Negative Negative Urine Blood Negative Negative /uL Urine Nitrite Negative Negative Urine Bilirubin Negative Negative Urine Urobilinogen Normal Negative mg/dL Urine Leukocyte Esterase 2+ Negative /uL Urine RBC 1 0 - 4 /hpf Urine Microscopic WBC 10 H 0-5 /HPF Urine Squamous Epithelial Cells Few <5 /hpf Urine Bacteria Few H None Seen /hpf Urine Hyaline Casts Few 0 - 2 /lpf Urine Glucose Normal Normal mg/dL Microbiology Date/Time Source Procedure Growth Status 09/08/24 10:53 Surgery Anaerobic Culture - Preliminary Resulted 09/08/24 10:53 Aerobic Culture - Final Methicillin Resistant S.aureus Escherichia coli - ESBL Proteus mirabilis#2 Resulted Problems(with codes): (1) Abscess, toe (2) Post surgical complication (3) Intractable pain Plan/Recommendation ASSESSMENT AND PLAN: ID Problem List: - Diabetes mellitus - Hypertension - Hyperlipidemia - Cardiomyopathy with mild congestion - Recurrent ventral hernia, mesh infection status post mesh removal - MRSA, ESBL E. coli, and Proteus mesh infection Assessment This is a 69 year old female with a history of diabetes mellitus, hypertension, hyperlipidemia, and cardiomyopathy with mild congestion, who presents status post excision of extruded infected mesh (ventral hernia repair), lysis of adhesions, repair of enterotomies, and repair of recurrent ventral hernia on September 08. Mesh was removed and cultures from the mesh are growing MRSA, ESBL E. coli, and Proteus. Patient has no ongoing signs or concerns for systemic infection after mesh removal. Relevant labs: Hemoglobin A1c: 6.6 Sodium: 137 BUN: 14 Creatinine: 0.60 Plan: - Continue vancomycin and meropenem IV while inpatient - Monitor for ongoing/worsening infection; obtain repeat blood cultures to ensure clearance - Once ready for discharge, transition to oral antibiotics: Bactrim DS one tablet BID and levofloxacin 750 mg daily to complete a 14-day course - Infectious Disease follow-up in 2 weeks for postoperative evaluation - Defer further management of postoperative abdominal wound to surgical team - Remaining plan unchanged at this time Isolation Precautions: Not specified Assessment and plan discussed with the patient as above Plan subject to change pending new information or diagnostics. Updates may be added as addendum. Thank you for consult. ID will continue to follow. Please contact Infectious Disease for questions or concerns. Amanda Sullivan M.D. [facility] Ph: ? Teams text: [email or web address] Electronically signed by: Amanda Sullivan MD, 09/11/2024 History: The patients chart and medications were reviewed. The patient was seen and examined. History obtained from: Not explicitly stated in transcript. 69 year old female with diabetes, hypertension, hyperlipidemia, and cardiomyopathy (mild congestion), who is status post ventral hernia mesh removal for infection. Mesh was excised on September 08; per operative report, mesh was removed and no foreign material was retained. Intraoperative cultures growing MRSA, ESBL E. coli, Proteus. Review of Systems: Not comprehensively discussed; see HPI for details. Review of Systems - Constitutional: Not discussed Review of Systems - HEENT: Not discussed Review of Systems - Respiratory: Not discussed Review of Systems - Cardiovascular: Not discussed Review of Systems - Gastrointestinal: Not discussed Review of Systems - Genitourinary: Not discussed Review of Systems - Musculoskeletal: Not discussed Review of Systems - Skin: Not discussed Review of Systems - Neurological: Not discussed Review of Systems - Psychiatric: Not discussed Past Medical History: - Diabetes mellitus - Hypertension - Hyperlipidemia - Cardiomyopathy with mild congestion - Ventral hernia with mesh placement and infection Past Surgical History: - Ventral hernia mesh repair with subsequent mesh excision, lysis of adhesions, repair of enterotomies, recurrent hernia repair (09/08) Home Medications: Not provided in transcript Allergies: Not provided in transcript Family History: Not provided in transcript Social History: Not provided in transcript Objective: Vital Signs on Admission: Temp: 98.2F Pulse: 91 Respiratory Rate: 13 BP: 151/71 SpO2: 95% on room air Most Recent Vital Signs: Not provided in transcript Admission Weight: Not provided in transcript BMI: Not provided in transcript Physical Exam: General: NAD Neck: Supple. No masses. HEENT: PERRL. Normal lids and conjunctiva. Moist mucous membranes. Oropharynx without lesions, exudates or excessive erythema. Normal appearance of the external aspects of the nose and ears. Heart: Regular rhythm, normal rate. No murmur. No lower extremity edema. Lungs: Normal respiratory effort. Clear to auscultation bilaterally. No wheezes. No crackles. Abdomen: Soft. Non-tender. Non-distended. No masses or abdominal hernia. Msk: No digital cyanosis. Normal strength and tone in all 4 limbs Skin: Warm and dry, no rashes. Neuro: Alert. No facial droop or slurred speech. Extra-ocular movements intact. Sensation intact to soft touch in all 4 limbs. Psych: Appropriate mood. Full affect. Oriented to person, place, time, and situation. Lines: Not provided in transcript Diagnostic Studies: Labs as above (HbA1c, sodium, BUN, creatinine) Operative mesh cultures positive for MRSA, ESBL E. coli, Proteus Pertinent Imaging: Not discussed in transcript Plan discussed with: Patient AMANDA SULLIVAN MD September 10, 2024 22:20
[2024-09-11 01:00] VITALS: BP 126/77; PULSE 87; RESP 17; TEMP 97.6; O2SAT 94
[2024-09-11 05:00] VITALS: BP 145/76; PULSE 100; RESP 18; TEMP 98.9; O2SAT 94
[2024-09-11 09:00] VITALS: BP 130/74; PULSE 101; RESP 18; TEMP 99.5; O2SAT 92
--- NOTE | 2024-09-11 11:14 | DVHPN2 ---
Progress Note Date Seen: September 11, 2024 Medical Necessity Reason Pt with a Central, PICC or Fol: No Objective vital signs Vital Sign Date Time Temp Pulse Resp B/P (MAP) Pulse Ox O2 Delivery O2 Flow Rate FiO2 09/11/24 09:00 99.5 101 18 130/74 (92) 92 99.5 09/11/24 08:00 Room Air* 0 21 Total Intake and Output 09/10/24 09/10/24 09/11/24 15:00 23:00 07:00 Intake Total 150 ml 425 ml 480 ml Balance 150 ml 425 ml 480 ml medications Current Medications Medications Dose Ordered Sig/Lili Route Start Time Stop Time Status Last Admin Dose Admin Hydromorphone HCl 1 mg Q3HPRN PRN IV 09/08/24 11:15 09/11/24 08:45 1 MG Pantoprazole Sodium 40 mg DAILY IV 09/09/24 10:00 09/11/24 08:42 40 MG Ondansetron HCl 4 mg Q4HPRN PRN IV 09/08/24 11:15 09/08/24 20:40 4 MG Potassium Chloride/Dextrose/ Sod Cl 1,000 ml @ 100 mls/hr Q10H IV 09/08/24 13:30 09/10/24 21:07 100 MLS/HR Diagnostic Test (Pha) 1 strip Q6HR 09/08/24 18:00 09/11/24 06:25 1 STRIP Insulin Human Regular Q6HR SC 09/08/24 18:00 09/11/24 06:25 3 UNITS Dextrose 50 ml UD PRN IV 09/08/24 13:30 Hydralazine HCl 10 mg Q6HP PRN IV 09/08/24 13:30 Vancomycin HCl 0 ml @ 0 mls/hr UD IV 09/09/24 10:30 Acetaminophen 650 mg Q6HP PRN [place] 09/10/24 05:15 09/10/24 05:25 650 MG Vancomycin HCl 150 ml @ 150 mls/hr Q12H IV 09/10/24 11:00 09/10/24 22:29 150 MLS/HR Meropenem 50 ml @ 17 mls/hr Q8H IV 09/10/24 16:00 09/11/24 08:42 17 MLS/HR laboratory and microbiology Laboratory Tests 09/11/24 10:05 09/10/24 04:55 Test 09/10/24 04:55 Range/Units Serum Glucose 162 H 74-106 mg/dL Problem List/Assessment/Plan Problem List/Assessment/Plan 09/09/24 feels well, afebrile, normotensive, abdomen soft, nn distended, appropriately tender, explained her operation to her , no flatus or BM, she needs to remain NPO except ice chips till bowel activity returns. 09/11/24 passing flatus, having BM's.abdomen appropriately tender, wound clean, matthew drainage serosanguineopus, will advance po intake and ambulation, DC tomorrow if all stays same Plan discussed with: Patient YANELIS TURNER MD September 11, 2024 11:14
[2024-09-11 13:00] VITALS: BP 119/63; PULSE 98; RESP 16; TEMP 98; O2SAT 98
--- NOTE | 2024-09-11 16:09 | DVHPN2 ---
Subjective in bed resting Changes from previous H/P or p: No Changes Objective Vitals Vital Signs Date Time Temp Pulse Resp B/P (MAP) Pulse Ox O2 Delivery O2 Flow Rate FiO2 09/11/24 13:00 98.0 98 16 119/63 (81) 98 98.0 09/11/24 08:00 Room Air* 0 21 Intake/Output Intake and Output 09/11/24 07:00 Intake Total 1055 ml Balance 1055 ml Intake Oral 855 ml IV Total 200 ml # Voids 6 # Bowel Movements 4 General Appearance: Alert, Oriented X3 Lungs: Clear to auscultation Cardiovascular: Regular rate, Normal S1 Medications Current Medications Medications Dose Ordered Sig/Lili Route Start Time Stop Time Status Last Admin Dose Admin Hydromorphone HCl 1 mg Q3HPRN PRN IV 09/08/24 11:15 09/11/24 08:45 1 MG Pantoprazole Sodium 40 mg DAILY IV 09/09/24 10:00 09/11/24 08:42 40 MG Ondansetron HCl 4 mg Q4HPRN PRN IV 09/08/24 11:15 09/08/24 20:40 4 MG Potassium Chloride/Dextrose/ Sod Cl 1,000 ml @ 100 mls/hr Q10H IV 09/08/24 13:30 09/11/24 11:48 100 MLS/HR Diagnostic Test (Pha) 1 strip Q6HR 09/08/24 18:00 09/11/24 12:17 1 STRIP Insulin Human Regular Q6HR SC 09/08/24 18:00 09/11/24 12:25 2 UNITS Dextrose 50 ml UD PRN IV 09/08/24 13:30 Hydralazine HCl 10 mg Q6HP PRN IV 09/08/24 13:30 Vancomycin HCl 0 ml @ 0 mls/hr UD IV 09/09/24 10:30 Acetaminophen 650 mg Q6HP PRN [place] 09/10/24 05:15 09/10/24 05:25 650 MG Meropenem 50 ml @ 17 mls/hr Q8H IV 09/10/24 16:00 09/11/24 15:50 17 MLS/HR Vancomycin HCl 200 ml @ 160 mls/hr Q12H IV 09/11/24 23:00 Laboratory Results Laboratory Tests 09/10/24 04:55 09/11/24 10:05 Urinalysis Test 09/06/24 11:40 Urine Color Colorless (Yellow) Urine Clarity Clear (Clear) Urine pH 5.5 (5.0-9.0) Urine Specific [place] 1.008 (1.001-1.035) Urine Protein Negative (Negative) Urine Ketones Negative (Negative) Urine Blood Negative /uL (Negative) Urine Nitrite Negative (Negative) Urine Bilirubin Negative (Negative) Urine Urobilinogen Normal mg/dL (Negative) Urine Leukocyte Esterase 2+ /uL (Negative) Urine RBC 1 /hpf (0 - 4) Urine Microscopic WBC 10 /HPF (0-5) H Urine Squamous Epithelial Cells Few /hpf (<5) Urine Bacteria Few /hpf (None Seen) H Urine Hyaline Casts Few /lpf (0 - 2) Urine Glucose Normal mg/dL (Normal) Microbiology Microbiology Date/Time Source Procedure Growth Status 09/08/24 10:53 Surgery Anaerobic Culture - Preliminary Resulted 09/08/24 10:53 Aerobic Culture - Final Methicillin Resistant S.aureus Escherichia coli - ESBL Proteus mirabilis#2 Resulted Assessment/Plan Assessment/Plan * Diabetes mellitus for which the patient will be placed on sliding scale insulin and hemoglobin A1c will be checked. * Hypertension for which she will be put on p.r.n. hydralazine. * Obesity. * Hyperlipidemia. * Status post hernia repair surgery. The patient will be placed on pain medications and IV fluids- staph aureus- id pending, iv vanc empiric, levaquin Plan discussed with: Patient Date of Service: September 11, 2024 Billing Provider: HENRI SHORT MD Common Visit Codes: [id number] INP/OBS CARE(HIGH) HENRI SHORT MD September 11, 2024 16:09
[2024-09-11 17:00] VITALS: BP 135/73; PULSE 99; RESP 18; TEMP 97.7; O2SAT 95
[2024-09-11 21:00] VITALS: BP 135/74; PULSE 87; RESP 19; TEMP 98.3; O2SAT 94
[2024-09-11] MEDS: VANCOMYCIN 1GM/200ML PM 200 ML IV SCH (22:29)
--- NOTE | 2024-09-11 23:29 | DVHPN2 ---
Consult Progress Note Date Seen: September 11, 2024 Subjective Patient reports: Other (has about 50ccs of ongoing drainage of green billious ) Objective vital signs Vital Sign Date Time Temp Pulse Resp B/P (MAP) Pulse Ox O2 Delivery O2 Flow Rate FiO2 09/11/24 21:00 98.3 87 19 135/74 (94) 94 98.3 09/11/24 20:00 Room Air* 0 21 Total Intake and Output 09/10/24 09/10/24 09/11/24 15:00 23:00 07:00 Intake Total 150 ml 425 ml 480 ml Balance 150 ml 425 ml 480 ml medications Current Medications Medications Dose Ordered Sig/Lili Route Start Time Stop Time Status Last Admin Dose Admin Hydromorphone HCl 1 mg Q3HPRN PRN IV 09/08/24 11:15 09/11/24 16:51 1 MG Pantoprazole Sodium 40 mg DAILY IV 09/09/24 10:00 09/11/24 08:42 40 MG Ondansetron HCl 4 mg Q4HPRN PRN IV 09/08/24 11:15 09/08/24 20:40 4 MG Potassium Chloride/Dextrose/ Sod Cl 1,000 ml @ 100 mls/hr Q10H IV 09/08/24 13:30 09/11/24 22:30 100 MLS/HR Diagnostic Test (Pha) 1 strip Q6HR 09/08/24 18:00 09/11/24 17:50 1 STRIP Insulin Human Regular Q6HR SC 09/08/24 18:00 09/11/24 17:50 3 UNITS Dextrose 50 ml UD PRN IV 09/08/24 13:30 Hydralazine HCl 10 mg Q6HP PRN IV 09/08/24 13:30 Vancomycin HCl 0 ml @ 0 mls/hr UD IV 09/09/24 10:30 Acetaminophen 650 mg Q6HP PRN [place] 09/10/24 05:15 09/10/24 05:25 650 MG Meropenem 50 ml @ 17 mls/hr Q8H IV 09/10/24 16:00 09/11/24 15:50 17 MLS/HR Vancomycin HCl 200 ml @ 160 mls/hr Q12H IV 09/11/24 23:00 09/11/24 22:29 160 MLS/HR Physical Exam: General: NAD Neck: Supple. No masses. HEENT: PERRL. Normal lids and conjunctiva. Moist mucous membranes. Oropharynx without lesions, exudates or excessive erythema. Normal appearance of the external aspects of the nose and ears. Heart: Regular rhythm, normal rate. No murmur. No lower extremity edema. Lungs: Normal respiratory effort. Clear to auscultation bilaterally. No wheezes. No crackles. Abdomen: Soft. Non-tender. Non-distended. No masses or abdominal hernia. Msk: No digital cyanosis. Normal strength and tone in all 4 limbs Skin: Warm and dry, no rashes. Neuro: Alert. No facial droop or slurred speech. Extra-ocular movements intact. Sensation intact to soft touch in all 4 limbs. Psych: Appropriate mood. Full affect. Oriented to person, place, time, and situation. laboratory and microbiology Laboratory Tests 09/11/24 10:05 09/10/24 04:55 Test 09/10/24 04:55 Range/Units Serum Glucose 162 H 74-106 mg/dL Problem List/Assessment/Plan Problems(with codes): (1) Abscess, toe (2) Intractable pain (3) Post surgical complication (4) Left shoulder pain (5) Abscess of axilla, left (6) Uncontrolled hypertension (7) Neck muscle spasm (8) Muscle strain of left upper extremity Problem List/Assessment/Plan ASSESSMENT AND PLAN: ID Problem List: - Diabetes mellitus - Hypertension - Hyperlipidemia - Cardiomyopathy with mild congestion - Recurrent ventral hernia, mesh infection status post mesh removal - MRSA, ESBL E. coli, and Proteus mesh infection Assessment This is a 69 year old female with a history of diabetes mellitus, hypertension, hyperlipidemia, and cardiomyopathy with mild congestion, who presents status post excision of extruded infected mesh (ventral hernia repair), lysis of adhesions, repair of enterotomies, and repair of recurrent ventral hernia on September 08. Mesh was removed and cultures from the mesh are growing MRSA, ESBL E. coli, and Proteus. Patient has no ongoing signs or concerns for systemic infection after mesh removal. Relevant labs: Hemoglobin A1c: 6.6 Sodium: 137 BUN: 14 Creatinine: 0.60 09/11: whitecount has come down to 8.3 Plan: - Continue vancomycin and meropenem IV while inpatient - Monitor for ongoing/worsening infection; obtain repeat blood cultures to ensure clearance - Once ready for discharge, transition to oral antibiotics: Bactrim DS one tablet BID and levofloxacin 750 mg daily to complete a 14-day course - Infectious Disease follow-up in 2 weeks for postoperative evaluation - Defer further management of postoperative abdominal wound to surgical team - Remaining plan unchanged at this time Isolation Precautions: Not specified Plan discussed with: Other Dietary Evaluation Review Recommendations by RD: Dietary education by RD, Protein Supplementation Comments: 1) Intiate Ensure Clear qd. Encourage optimal PO intake 2) Advance to 60g CCHO diet when medically feasible, pending [employer] approval 3) Refer to outpatient RD/CD[facility] for weight management 4) Follow-up with surgery and cardiology 5) Continue to monitor I&O, labs, and skin integrity Expected Outcomes/Goals: 1) appetite and labs to improve 2) diet to advance 3) f/u in 2-3 days AMANDA CAMPOS MD September 11, 2024 23:29
[2024-09-12] VITALS (7 sets, daily range): BP systolic 111–140; BP diastolic 65–78; PULSE 86–106; RESP 17–20; TEMP 97.8–99; O2SAT 93–96
[2024-09-12 08:34] LABS: Basophils # (auto) 0 10 ^3/uL (0-0.2); Basophils % (auto) 0.2 % (0.0-2.0); Eosinophils # (auto) 0.1 10 ^3/uL (0-0.8); Eosinophils % (auto) 1.2 % (0.0-7.0); Hematocrit 33.9 % (36.0-46.0); Hemoglobin 11.3 g/dL (12.2-16.2); Lymphocytes # (auto) 1.3 10 ^3/uL (0.4-5.4); Lymphocytes % (auto) 16.1 % (10.0-50.0); Mean Corpuscular Hemoglobin 29.1 pg (28.0-32.0); Mean Corpuscular Hgb Conc. 33.3 g/dL (32.0-36.0); Mean Corpuscular Volume 87.5 fL (80.0-100.0); Monocytes # (auto) 0.5 10 ^3/uL (0-1.3); Monocytes % (auto) 6.4 % (0.0-12.0); Neutrophils # (auto) 6.3 10 ^3/uL (1.6-8.6); Neutrophils % (auto) 76.1 % (37.0-80.0); Platelet Count (auto) 215 10^3/uL (140-450); Red Blood Cells 3.87 10^6/uL (4.0-5.20); White Blood Cell 8.3 10^3/uL (4.4-10.8)
[2024-09-12 08:52] LABS: Alanine Aminotransferase 13 U/L (7-40); Albumin 3.7 g/dL (3.2-4.8); Alkaline Phosphatase 94 U/L (46-116); Anion Gap 9 (5-15); Aspartate Aminotransferase 10 U/L (13-40); BUN/Creatinine Ratio 10.7 (10.0-20.0); Bilirubin, Total 0.5 mg/dL (0.2-1.0); Blood Urea Nitrogen 6 mg/dL (9-23); Calcium 8.9 mg/dL (8.7-10.4); Carbon Dioxide 26 mmol/L (20-31); Chloride 102 mmol/L (98-107); Glucose 174 mg/dL (74-106); Potassium 3.8 mmol/L (3.5-5.1); Sodium 137 mmol/L (136-145)
--- NOTE | 2024-09-12 17:12 | DVHPN2 ---
Subjective in bed resting Changes from previous H/P or p: No Changes Objective Vitals Vital Signs Date Time Temp Pulse Resp B/P (MAP) Pulse Ox O2 Delivery O2 Flow Rate FiO2 09/12/24 15:59 78 20 113/66 09/12/24 12:43 98.8 95 98.8 09/12/24 08:00 Room Air* 0 21 Intake/Output Intake and Output 09/12/24 07:00 Intake Total 1600 ml Output Total 100 ml Balance 1500 ml Intake Oral 600 ml IV Total 1000 ml Output Drainage Total 100 ml # Voids 7 # Bowel Movements 4 General Appearance: Alert, Oriented X3 Lungs: Clear to auscultation Cardiovascular: Regular rate, Normal S1 Medications Current Medications Medications Dose Ordered Sig/Lili Route Start Time Stop Time Status Last Admin Dose Admin Hydromorphone HCl 1 mg Q3HPRN PRN IV 09/08/24 11:15 09/12/24 15:59 1 MG Pantoprazole Sodium 40 mg DAILY IV 09/09/24 10:00 09/12/24 08:19 40 MG Ondansetron HCl 4 mg Q4HPRN PRN IV 09/08/24 11:15 09/08/24 20:40 4 MG Potassium Chloride/Dextrose/ Sod Cl 1,000 ml @ 100 mls/hr Q10H IV 09/08/24 13:30 09/11/24 22:30 100 MLS/HR Diagnostic Test (Pha) 1 strip Q6HR 09/08/24 18:00 09/12/24 11:25 1 STRIP Insulin Human Regular Q6HR SC 09/08/24 18:00 09/12/24 11:26 3 UNITS Dextrose 50 ml UD PRN IV 09/08/24 13:30 Hydralazine HCl 10 mg Q6HP PRN IV 09/08/24 13:30 Vancomycin HCl 0 ml @ 0 mls/hr UD IV 09/09/24 10:30 Acetaminophen 650 mg Q6HP PRN MD 09/10/24 05:15 09/10/24 05:25 650 MG Meropenem 50 ml @ 17 mls/hr Q8H IV 09/10/24 16:00 09/12/24 16:04 17 MLS/HR Vancomycin HCl 200 ml @ 160 mls/hr Q12H IV 09/11/24 23:00 09/12/24 11:25 160 MLS/HR Laboratory Results Laboratory Tests 09/12/24 07:49 Chemistry Test 09/12/24 07:49 Albumin 3.7 g/dL (3.2-4.8) Calcium Level 8.9 mg/dL (8.7-10.4) Total Protein 6.0 g/dL (5.7-8.2) LFT Test 09/12/24 07:49 Alanine Aminotransferase (ALT) 13 U/L (7-40) Alkaline Phosphatase 94 U/L (46-116) Aspartate Amino Transferase (AST) 10 U/L (13-40) L Total Bilirubin 0.5 mg/dL (0.2-1.0) Urinalysis Test 09/06/24 11:40 Urine Color Colorless (Yellow) Urine Clarity Clear (Clear) Urine pH 5.5 (5.0-9.0) Urine Specific [place] 1.008 (1.001-1.035) Urine Protein Negative (Negative) Urine Ketones Negative (Negative) Urine Blood Negative /uL (Negative) Urine Nitrite Negative (Negative) Urine Bilirubin Negative (Negative) Urine Urobilinogen Normal mg/dL (Negative) Urine Leukocyte Esterase 2+ /uL (Negative) Urine RBC 1 /hpf (0 - 4) Urine Microscopic WBC 10 /HPF (0-5) H Urine Squamous Epithelial Cells Few /hpf (<5) Urine Bacteria Few /hpf (None Seen) H Urine Hyaline Casts Few /lpf (0 - 2) Urine Glucose Normal mg/dL (Normal) Microbiology Microbiology Date/Time Source Procedure Growth Status 09/11/24 13:56 Blood Blood Culture - Preliminary NO GROWTH AFTER 24 HOURS OF INCUBATION. Resulted 09/08/24 10:53 Surgery Anaerobic Culture - Preliminary Resulted 09/08/24 10:53 Aerobic Culture - Final Methicillin Resistant S.aureus Escherichia coli - ESBL Proteus mirabilis#2 Resulted Assessment/Plan Assessment/Plan * Diabetes mellitus for which the patient will be placed on sliding scale insulin and hemoglobin A1c will be checked. * Hypertension for which she will be put on p.r.n. hydralazine. * Obesity. * Hyperlipidemia. * Status post hernia repair surgery. The patient will be placed on pain medications and IV fluids- staph aureus- MRSA and ESBL on cultures ID consulted - Continue vancomycin and meropenem IV while inpatient - Monitor for ongoing/worsening infection; obtain repeat blood cultures to ensure clearance - Once ready for discharge, transition to oral antibiotics: Bactrim DS one tablet BID and levofloxacin 750 mg daily to complete a 14-day course Plan discussed with: Patient Date of Service: September 12, 2024 Billing Provider: HENRI SHORT MD Common Visit Codes: [id number] INP/OBS CARE(HIGH) HENRI SHORT MD September 12, 2024 17:12
--- NOTE | 2024-09-12 23:04 | DVHPN2 ---
Consult Progress Note Date Seen: September 12, 2024 Subjective Patient reports: Feels better (patient has been feeling better since drain has been placed , 35ccs of drainage in last 24hours and no abdominal tenderness and tolerating a clear liquid diet ) Objective vital signs Vital Sign Date Time Temp Pulse Resp B/P (MAP) Pulse Ox O2 Delivery O2 Flow Rate FiO2 09/12/24 20:54 102 19 144/78 09/12/24 17:00 98.4 96 98.4 09/12/24 08:00 Room Air* 0 21 Total Intake and Output 09/11/24 09/11/24 09/12/24 15:00 23:00 07:00 Intake Total 200 ml 990 ml 410 ml Output Total 50 ml 50 ml Balance 150 ml 940 ml 410 ml medications Current Medications Medications Dose Ordered Sig/Lili Route Start Time Stop Time Status Last Admin Dose Admin Hydromorphone HCl 1 mg Q3HPRN PRN IV 09/08/24 11:15 09/12/24 20:54 1 MG Pantoprazole Sodium 40 mg DAILY IV 09/09/24 10:00 09/12/24 08:19 40 MG Ondansetron HCl 4 mg Q4HPRN PRN IV 09/08/24 11:15 09/08/24 20:40 4 MG Potassium Chloride/Dextrose/ Sod Cl 1,000 ml @ 100 mls/hr Q10H IV 09/08/24 13:30 09/11/24 22:30 100 MLS/HR Diagnostic Test (Pha) 1 strip Q6HR 09/08/24 18:00 09/12/24 17:50 1 STRIP Insulin Human Regular Q6HR SC 09/08/24 18:00 09/12/24 17:49 2 UNITS Dextrose 50 ml UD PRN IV 09/08/24 13:30 Hydralazine HCl 10 mg Q6HP PRN IV 09/08/24 13:30 Vancomycin HCl 0 ml @ 0 mls/hr UD IV 09/09/24 10:30 Acetaminophen 650 mg Q6HP PRN NC 09/10/24 05:15 09/10/24 05:25 650 MG Meropenem 50 ml @ 17 mls/hr Q8H IV 09/10/24 16:00 09/12/24 16:04 17 MLS/HR Vancomycin HCl 200 ml @ 160 mls/hr Q12H IV 09/11/24 23:00 09/12/24 22:22 160 MLS/HR Physical Exam: General: NAD Neck: Supple. No masses. HEENT: PERRL. Normal lids and conjunctiva. Moist mucous membranes. Oropharynx without lesions, exudates or excessive erythema. Normal appearance of the external aspects of the nose and ears. Heart: Regular rhythm, normal rate. No murmur. No lower extremity edema. Lungs: Normal respiratory effort. Clear to auscultation bilaterally. No wheezes. No crackles. Abdomen: Soft. Non-tender. Non-distended. No masses or abdominal hernia. Msk: No digital cyanosis. Normal strength and tone in all 4 limbs Skin: Warm and dry, no rashes. Neuro: Alert. No facial droop or slurred speech. Extra-ocular movements intact. Sensation intact to soft touch in all 4 limbs. Psych: Appropriate mood. Full affect. Oriented to person, place, time, and situation. laboratory and microbiology Laboratory Tests 09/12/24 07:49 Test 09/12/24 07:49 Range/Units Serum Glucose 174 H 74-106 mg/dL Problem List/Assessment/Plan Problems(with codes): (1) Post surgical complication (2) Intractable pain (3) Abscess, toe (4) Abscess of axilla, left (5) Muscle strain of left upper extremity (6) Neck muscle spasm (7) Uncontrolled hypertension (8) Left shoulder pain Problem List/Assessment/Plan ASSESSMENT AND PLAN: ID Problem List: - Diabetes mellitus - Hypertension - Hyperlipidemia - Cardiomyopathy with mild congestion - Recurrent ventral hernia, mesh infection status post mesh removal - MRSA, ESBL E. coli, and Proteus mesh infection Assessment This is a 69 year old female with a history of diabetes mellitus, hypertension, hyperlipidemia, and cardiomyopathy with mild congestion, who presents status post excision of extruded infected mesh (ventral hernia repair), lysis of adhesions, repair of enterotomies, and repair of recurrent ventral hernia on September 08. Mesh was removed and cultures from the mesh are growing MRSA, ESBL E. coli, and Proteus. Patient has no ongoing signs or concerns for systemic infection after mesh removal. Relevant labs: Hemoglobin A1c: 6.6 Sodium: 137 BUN: 14 Creatinine: 0.60 09/11: whitecount has come down to 8.3 09/12: tolerating clear liquid diet. still awaiting a BM , which has not happened yet Plan: - defer to surgery on advancement of diet recommendations - Continue vancomycin and meropenem IV while inpatient - Monitor for ongoing/worsening infection; obtain repeat blood cultures to ensure clearance - Once ready for discharge, transition to oral antibiotics: Bactrim DS one tablet BID and levofloxacin 750 mg daily to complete a 14-day course - Infectious Disease follow-up in 2 weeks for postoperative evaluation - Defer further management of postoperative abdominal wound to surgical team - Remaining plan unchanged at this time Isolation Precautions: Not specified Plan discussed with: Other Dietary Evaluation Review Recommendations by RD: Dietary education by RD, Protein Supplementation Comments: 1) Intiate Ensure Clear qd. Encourage optimal PO intake 2) Advance to 60g CCHO diet when medically feasible, pending MISSING PERSONS INVESTIGATOR approval 3) Refer to outpatient RD/CDCES for weight management 4) Follow-up with surgery and cardiology 5) Continue to monitor I&O, labs, and skin integrity Expected Outcomes/Goals: 1) appetite and labs to improve 2) diet to advance 3) f/u in 2-3 days AMANDA CAMPOS MD September 12, 2024 23:04
[2024-09-13] VITALS (8 sets, daily range): BP systolic 125–132; BP diastolic 68–81; PULSE 66–105; RESP 16–20; TEMP 98–99.4; O2SAT 0–98
[2024-09-13 07:44] LABS: Basophils # (auto) 0 10 ^3/uL (0-0.2); Basophils % (auto) 0.1 % (0.0-2.0); Eosinophils # (auto) 0.1 10 ^3/uL (0-0.8); Eosinophils % (auto) 1.3 % (0.0-7.0); Hematocrit 32.9 % (36.0-46.0); Hemoglobin 10.9 g/dL (12.2-16.2); Lymphocytes # (auto) 1.3 10 ^3/uL (0.4-5.4); Lymphocytes % (auto) 15.7 % (10.0-50.0); Mean Corpuscular Hemoglobin 29.1 pg (28.0-32.0); Mean Corpuscular Hgb Conc. 33.1 g/dL (32.0-36.0); Mean Corpuscular Volume 87.9 fL (80.0-100.0); Monocytes # (auto) 0.6 10 ^3/uL (0-1.3); Monocytes % (auto) 7.7 % (0.0-12.0); Neutrophils # (auto) 6.2 10 ^3/uL (1.6-8.6); Neutrophils % (auto) 75.2 % (37.0-80.0); Nucleated Red Blood Cells % 0.1 %; Platelet Count (auto) 246 10^3/uL (140-450); Red Blood Cells 3.74 10^6/uL (4.0-5.20); Red Cell Distribution Width 13.9 % (11.8-14.3); White Blood Cell 8.2 10^3/uL (4.4-10.8)
[2024-09-13] MEDS ORDERED: VANCOMYCIN 1GM/200ML PM 200 ML IV SCH (12:45)
--- NOTE | 2024-09-13 16:25 | DVHPN2 ---
Consult Progress Note Date Seen: September 13, 2024 Subjective Patient reports: Other (had a bowel movement , minimal billious drainage ) Objective vital signs Vital Sign Date Time Temp Pulse Resp B/P (MAP) Pulse Ox O2 Delivery O2 Flow Rate FiO2 09/13/24 12:51 98.5 66 16 130/68 (88) 90 98.5 09/13/24 08:00 Room Air* 0 21 Total Intake and Output 09/12/24 09/12/24 09/13/24 15:00 23:00 07:00 Intake Total 730 ml 290 ml 1175 ml Output Total 455 ml Balance 730 ml -165 ml 1175 ml medications Current Medications Medications Dose Ordered Sig/Lili Route Start Time Stop Time Status Last Admin Dose Admin Hydromorphone HCl 1 mg Q3HPRN PRN IV 09/08/24 11:15 09/13/24 10:37 1 MG Pantoprazole Sodium 40 mg DAILY IV 09/09/24 10:00 09/13/24 08:13 40 MG Ondansetron HCl 4 mg Q4HPRN PRN IV 09/08/24 11:15 09/08/24 20:40 4 MG Potassium Chloride/Dextrose/ Sod Cl 1,000 ml @ 100 mls/hr Q10H IV 09/08/24 13:30 09/13/24 04:17 100 MLS/HR Diagnostic Test (Pha) 1 strip Q6HR 09/08/24 18:00 09/13/24 11:27 1 STRIP Insulin Human Regular Q6HR SC 09/08/24 18:00 09/13/24 11:27 3 UNITS Dextrose 50 ml UD PRN IV 09/08/24 13:30 Hydralazine HCl 10 mg Q6HP PRN IV 09/08/24 13:30 Vancomycin HCl 0 ml @ 0 mls/hr UD IV 09/09/24 10:30 Acetaminophen 650 mg Q6HP PRN [place] 09/10/24 05:15 09/10/24 05:25 650 MG Meropenem 50 ml @ 17 mls/hr Q8H IV 09/10/24 16:00 09/13/24 08:13 17 MLS/HR Vancomycin HCl 200 ml @ 160 mls/hr Q8H IV 09/13/24 12:45 Physical Exam: General: NAD Neck: Supple. No masses. HEENT: PERRL. Normal lids and conjunctiva. Moist mucous membranes. Oropharynx without lesions, exudates or excessive erythema. Normal appearance of the external aspects of the nose and ears. Heart: Regular rhythm, normal rate. No murmur. No lower extremity edema. Lungs: Normal respiratory effort. Clear to auscultation bilaterally. No wheezes. No crackles. Abdomen: Soft. Non-tender. Non-distended. No masses or abdominal hernia. Msk: No digital cyanosis. Normal strength and tone in all 4 limbs Skin: Warm and dry, no rashes. Neuro: Alert. No facial droop or slurred speech. Extra-ocular movements intact. Sensation intact to soft touch in all 4 limbs. Psych: Appropriate mood. Full affect. Oriented to person, place, time, and situation. laboratory and microbiology Laboratory Tests 09/13/24 05:22 09/12/24 07:49 Test 09/12/24 07:49 Range/Units Serum Glucose 174 H 74-106 mg/dL Problem List/Assessment/Plan Problems(with codes): (1) Muscle strain of left upper extremity (2) Neck muscle spasm (3) Uncontrolled hypertension (4) Abscess of axilla, left (5) Left shoulder pain (6) Post surgical complication (7) Intractable pain (8) Abscess, toe Problem List/Assessment/Plan ASSESSMENT AND PLAN: ID Problem List: - Diabetes mellitus - Hypertension - Hyperlipidemia - Cardiomyopathy with mild congestion - Recurrent ventral hernia, mesh infection status post mesh removal - MRSA, ESBL E. coli, and Proteus mesh infection Assessment This is a 69 year old female with a history of diabetes mellitus, hypertension, hyperlipidemia, and cardiomyopathy with mild congestion, who presents status post excision of extruded infected mesh (ventral hernia repair), lysis of adhesions, repair of enterotomies, and repair of recurrent ventral hernia on September 08. Mesh was removed and cultures from the mesh are growing MRSA, ESBL E. coli, and Proteus. Patient has no ongoing signs or concerns for systemic infection after mesh removal. Relevant labs: Hemoglobin A1c: 6.6 Sodium: 137 BUN: 14 Creatinine: 0.60 09/11: whitecount has come down to 8.3 09/12: tolerating clear liquid diet. still awaiting a BM , which has not happened yet 09/13: blood cultures are no growth to date. whitecount has normalized . vancomycin troths are sub-therapeutic Plan: - recommend checking vancomycin troth to confirm that dose is therapeutic prior to discharge - defer to surgery on advancement of diet recommendations - Continue vancomycin and meropenem IV while inpatient - Monitor for ongoing/worsening infection; obtain repeat blood cultures to ensure clearance - Once ready for discharge, transition to oral antibiotics: Bactrim DS one tablet BID and levofloxacin 750 mg daily to complete a 14-day course - Infectious Disease follow-up in 2 weeks for postoperative evaluation - Defer further management of postoperative abdominal wound to surgical team - Remaining plan unchanged at this time Isolation Precautions: Not specified Plan discussed with: Other Dietary Evaluation Review Recommendations by RD: Dietary education by RD, Protein Supplementation Comments: 1) Intiate Ensure Clear qd. Encourage optimal PO intake 2) Advance to 60g CCHO diet when medically feasible, pending SHIPPING MANAGER approval 3) Refer to outpatient RD/CDCES for weight management 4) Follow-up with surgery and cardiology 5) Continue to monitor I&O, labs, and skin integrity Expected Outcomes/Goals: 1) appetite and labs to improve 2) diet to advance 3) f/u in 2-3 days AMANDA CAMPOS MD September 13, 2024 16:25
[2024-09-13] MEDS: VANCOMYCIN 1GM/200ML PM 200 ML IV SCH (20:06)
--- NOTE | 2024-09-13 20:28 | DVHPN2 ---
Subjective in bed resting Changes from previous H/P or p: No Changes Objective Vitals Vital Signs Date Time Temp Pulse Resp B/P (MAP) Pulse Ox O2 Delivery O2 Flow Rate FiO2 09/13/24 18:35 75 17 118/64 09/13/24 17:00 98.7 95 98.7 09/13/24 08:00 Room Air* 0 21 Intake/Output Intake and Output 09/13/24 07:00 Intake Total 2195 ml Output Total 455 ml Balance 1740 ml Intake Oral 1445 ml IV Total 750 ml Output Urine Total 400 ml Drainage Total 55 ml # Voids 4 # Bowel Movements 1 General Appearance: Alert, Oriented X3 Lungs: Clear to auscultation Cardiovascular: Regular rate, Normal S1 Medications Current Medications Medications Dose Ordered Sig/Lili Route Start Time Stop Time Status Last Admin Dose Admin Hydromorphone HCl 1 mg Q3HPRN PRN IV 09/08/24 11:15 09/13/24 18:05 1 MG Pantoprazole Sodium 40 mg DAILY IV 09/09/24 10:00 09/13/24 08:13 40 MG Ondansetron HCl 4 mg Q4HPRN PRN IV 09/08/24 11:15 09/08/24 20:40 4 MG Potassium Chloride/Dextrose/ Sod Cl 1,000 ml @ 100 mls/hr Q10H IV 09/08/24 13:30 09/13/24 04:17 100 MLS/HR Diagnostic Test (Pha) 1 strip Q6HR 09/08/24 18:00 09/13/24 18:11 1 STRIP Insulin Human Regular Q6HR SC 09/08/24 18:00 09/13/24 18:14 2 UNITS Dextrose 50 ml UD PRN IV 09/08/24 13:30 Hydralazine HCl 10 mg Q6HP PRN IV 09/08/24 13:30 Vancomycin HCl 0 ml @ 0 mls/hr UD IV 09/09/24 10:30 Acetaminophen 650 mg Q6HP PRN [place] 09/10/24 05:15 09/10/24 05:25 650 MG Meropenem 50 ml @ 17 mls/hr Q8H IV 09/10/24 16:00 09/13/24 16:27 17 MLS/HR Vancomycin HCl 200 ml @ 160 mls/hr Q8H IV 09/13/24 20:00 09/13/24 20:06 160 MLS/HR Laboratory Results Laboratory Tests 09/12/24 07:49 09/13/24 05:22 Urinalysis Test 09/06/24 11:40 Urine Color Colorless (Yellow) Urine Clarity Clear (Clear) Urine pH 5.5 (5.0-9.0) Urine Specific [place] 1.008 (1.001-1.035) Urine Protein Negative (Negative) Urine Ketones Negative (Negative) Urine Blood Negative /uL (Negative) Urine Nitrite Negative (Negative) Urine Bilirubin Negative (Negative) Urine Urobilinogen Normal mg/dL (Negative) Urine Leukocyte Esterase 2+ /uL (Negative) Urine RBC 1 /hpf (0 - 4) Urine Microscopic WBC 10 /HPF (0-5) H Urine Squamous Epithelial Cells Few /hpf (<5) Urine Bacteria Few /hpf (None Seen) H Urine Hyaline Casts Few /lpf (0 - 2) Urine Glucose Normal mg/dL (Normal) Microbiology Microbiology Date/Time Source Procedure Growth Status 09/11/24 13:56 Blood Blood Culture - Preliminary NO GROWTH AFTER 48 HOURS OF INCUBATION. Resulted 09/08/24 10:53 Surgery Anaerobic Culture - Final Complete 09/08/24 10:53 Aerobic Culture - Final Methicillin Resistant S.aureus Escherichia coli - ESBL Proteus mirabilis#2 Complete Assessment/Plan Assessment/Plan * Diabetes mellitus for which the patient will be placed on sliding scale insulin and hemoglobin A1c will be checked. * Hypertension for which she will be put on p.r.n. hydralazine. * Obesity. * Hyperlipidemia. * Status post hernia repair surgery. The patient will be placed on pain medications and IV fluids- staph aureus- MRSA and ESBL on cultures ID consulted - Continue vancomycin and meropenem IV while inpatient - Monitor for ongoing/worsening infection; obtain repeat blood cultures to ensure clearance - Once ready for discharge, transition to oral antibiotics: Bactrim DS one tablet BID and levofloxacin 750 mg daily to complete a 14-day course Plan discussed with: Patient Date of Service: September 13, 2024 Billing Provider: HENRI SHORT MD Common Visit Codes: [id number] INP/OBS CARE(HIGH) HENRI SHORT MD September 13, 2024 20:28
[2024-09-14] VITALS (8 sets, daily range): BP systolic 117–151; BP diastolic 59–78; PULSE 77–93; RESP 16–19; TEMP 97.1–98.7; O2SAT 65–100
--- NOTE | 2024-09-14 10:28 | DVHPN2 ---
Progress Note Date Seen: September 14, 2024 Medical Necessity Reason Pt with a Central, PICC or Fol: No Subjective Patient reports: No new complaints Review of Systems: HEENT:Normal, CVS:Normal, RESPIRATORY:Normal, GI:Normal, :Normal, MSK:Normal, NEURO:Normal Objective vital signs Vital Sign Date Time Temp Pulse Resp B/P (MAP) Pulse Ox O2 Delivery O2 Flow Rate FiO2 09/14/24 09:33 115 18 137/78 09/14/24 09:00 98.0 98 98.0 09/13/24 20:00 Room Air* 0 21 Total Intake and Output 09/13/24 09/13/24 09/14/24 15:00 23:00 07:00 Intake Total 480 ml 490 ml 950 ml Output Total 50 ml Balance 480 ml 440 ml 950 ml medications Current Medications Medications Dose Ordered Sig/Lili Route Start Time Stop Time Status Last Admin Dose Admin Hydromorphone HCl 1 mg Q3HPRN PRN IV 09/08/24 11:15 09/14/24 09:33 1 MG Pantoprazole Sodium 40 mg DAILY IV 09/09/24 10:00 09/14/24 09:32 40 MG Ondansetron HCl 4 mg Q4HPRN PRN IV 09/08/24 11:15 09/14/24 09:34 4 MG Potassium Chloride/Dextrose/ Sod Cl 1,000 ml @ 100 mls/hr Q10H IV 09/08/24 13:30 09/14/24 09:32 100 MLS/HR Diagnostic Test (Pha) 1 strip Q6HR 09/08/24 18:00 09/14/24 05:37 1 STRIP Insulin Human Regular Q6HR SC 09/08/24 18:00 09/14/24 05:37 2 UNITS Dextrose 50 ml UD PRN IV 09/08/24 13:30 Hydralazine HCl 10 mg Q6HP PRN IV 09/08/24 13:30 Vancomycin HCl 0 ml @ 0 mls/hr UD IV 09/09/24 10:30 Acetaminophen 650 mg Q6HP PRN [place] 09/10/24 05:15 09/10/24 05:25 650 MG Meropenem 50 ml @ 17 mls/hr Q8H IV 09/10/24 16:00 09/14/24 09:32 17 MLS/HR Vancomycin HCl 200 ml @ 160 mls/hr Q8H IV 09/13/24 20:00 09/14/24 04:17 160 MLS/HR Examination: GENERAL:Normal, HEENT:Normal, NECK:Normal, LUNGS:Normal, CVS:Normal, ABDOMEN:Normal, ABDOMEN:Abnormal (ERNESTINA DRAIN), MSK:Normal, SKIN:Normal, NEURO:Normal, :Normal laboratory and microbiology Laboratory Tests 09/13/24 05:22 09/12/24 07:49 Test 09/12/24 07:49 Range/Units Serum Glucose 174 H 74-106 mg/dL Microbiology Date/Time Source Procedure Growth Status 09/11/24 13:56 Blood Blood Culture - Preliminary NO GROWTH AFTER 48 HOURS OF INCUBATION. Resulted 09/08/24 10:53 Surgery Anaerobic Culture - Final Complete 09/08/24 10:53 Aerobic Culture - Final Methicillin Resistant S.aureus Escherichia coli - ESBL Proteus mirabilis#2 Complete Problem List/Assessment/Plan Problem List/Assessment/Plan * Diabetes mellitus for which the patient will be placed on sliding scale insulin and hemoglobin A1c will be checked. * Hypertension for which she will be put on p.r.n. hydralazine. * Obesity. * Hyperlipidemia. * Status post hernia repair surgery. The patient will be placed on pain medications and IV fluids- mrsa/e coli: on meropenem,vanc advance care planning- full code- time spent 18 mins Plan discussed with: Patient My Orders My Orders Orders - GRACIELA GORE MD Procedure Category Date Status Time Vancomycin,Trough LAB 09/14/24 Logged 11:00 Vancomycin 1gm/200ml PHA 09/13/24 In Process Pm 20:00 Vancomycin Per EMETERIO 09/14/24 In Process Pharmacy Protoc 12:00 Dietary Evaluation Review Recommendations by RD: Dietary education by RD, Protein Supplementation Comments: 1) Intiate Ensure Clear qd. Encourage optimal PO intake 2) Advance to 60g CCHO diet when medically feasible, pending SUPPORT ARCHITECT approval 3) Refer to outpatient RD/CD[facility] for weight management 4) Follow-up with surgery and cardiology 5) Continue to monitor I&O, labs, and skin integrity Expected Outcomes/Goals: 1) appetite and labs to improve 2) diet to advance 3) f/u in 2-3 days Date of Service: September 14, 2024 Billing Provider: GRACIELA GORE MD Common Visit Codes: [id number] INP/OBS CARE(HIGH) GRACIELA GORE MD September 14, 2024 10:28
--- NOTE | 2024-09-14 14:12 | DVHPN2 ---
Subjective Date Seen: September 14, 2024 Post op day Post op day: 6 Patient reports: No new complaints General: Normal HNT: Normal Cardiovascular: Normal Respiratory: Normal Gastrointestinal: Normal Genitourinary: Normal Musculoskeletal: Normal Neurological: Normal Objective Vitals Vital Sign Date Time Temp Pulse Resp B/P (MAP) Pulse Ox O2 Delivery O2 Flow Rate FiO2 09/14/24 13:00 98.7 80 16 133/59 (83) 100 98.7 09/13/24 20:00 Room Air* 0 21 Total Intake and Output 09/13/24 09/13/24 09/14/24 15:00 23:00 07:00 Intake Total 480 ml 490 ml 950 ml Output Total 50 ml Balance 480 ml 440 ml 950 ml Medications Current Medications Medications Dose Ordered Sig/Lili Route Start Time Stop Time Status Last Admin Dose Admin Hydromorphone HCl 1 mg Q3HPRN PRN IV 09/08/24 11:15 09/14/24 09:33 1 MG Ondansetron HCl 4 mg Q4HPRN PRN IV 09/08/24 11:15 09/14/24 09:34 4 MG Diagnostic Test (Pha) 1 strip Q6HR 09/08/24 18:00 09/14/24 11:42 1 STRIP Insulin Human Regular Q6HR SC 09/08/24 18:00 09/14/24 11:55 2 UNITS Dextrose 50 ml UD PRN IV 09/08/24 13:30 Hydralazine HCl 10 mg Q6HP PRN IV 09/08/24 13:30 Vancomycin HCl 0 ml @ 0 mls/hr UD IV 09/09/24 10:30 Acetaminophen 650 mg Q6HP PRN GA 09/10/24 05:15 09/10/24 05:25 650 MG Meropenem 50 ml @ 17 mls/hr Q8H IV 09/10/24 16:00 09/14/24 09:32 17 MLS/HR Vancomycin HCl 200 ml @ 160 mls/hr Q8H IV 09/13/24 20:00 09/14/24 11:56 160 MLS/HR Pantoprazole Sodium 40 mg DAILY@0600 PO 09/15/24 06:00 Acetaminophen/ Hydrocodone Bitart 1 tab Q6HPRN PRN PO 09/14/24 10:30 General: Normal, Well developed, Obese Head/Eyes: Normal ENT: Normal Neck: Normal Lungs: Normal, Normal inspection Cardiovascular: Normal, Regular rate and rhythm, Normal heart sound Abdominal: Normal, Soft Skin: Other (abdominal wound clean dry and intact ) Labs and Microbiology Laboratory Tests 09/13/24 05:22 09/12/24 07:49 Test 09/12/24 07:49 Range/Units Serum Glucose 174 H 74-106 mg/dL Ass/Plan Problem List * Diabetes mellitus for which the patient will be placed on sliding scale insulin and hemoglobin A1c will be checked. * Hypertension for which she will be put on p.r.n. hydralazine. * Obesity. * Hyperlipidemia. * Status post hernia repair surgery. The patient will be placed on pain medications and IV fluids- mrsa/e coli: on meropenem,vanc advance care planning- full code- time spent 18 mins Assessment/Plan s/p Excision of extruded infected mesh, abdominal wall. * Lysis of adhesions. * Repair enterotomies (x 2). * Repair of recurrent ventral hernia. Post op day 2 wound clean dry and intact abdomen soft , non distended, appropriately tender denies nausea Plan: clear liquids no more than 50cc ambulate wound dressing may stay off 09/14/24 s/p Excision of extruded infected mesh, abdominal wall. * Lysis of adhesions. * Repair enterotomies (x 2). * Repair of recurrent ventral hernia. Post op day 6 wound clean dry and intact abdomen soft , non distended, appropriately tender denies nausea Plan: ok to discharge per surgery point of view Prognosis: Good Plan discussed with Dr. Cano , patient Visit Coding Surgery Date of Service if different f: September 14, 2024 Billing Provider: YANELIS CANO MD Surgery Visit Codes: [id number] INP/OBS CARE(HIGH) ASHLEY POPE NP September 14, 2024 14:12
[2024-09-14] MEDS: HYDROcodone-ACET 5/325MG TAB PO PRN (15:37)
[2024-09-15 01:00] VITALS: BP 141/74; PULSE 77; RESP 19; TEMP 97.8; O2SAT 94
[2024-09-15] MEDS: VANCOMYCIN 1GM/200ML PM 200 ML IV SCH (03:37)
[2024-09-15 05:00] VITALS: BP 116/78; PULSE 74; RESP 19; TEMP 98; O2SAT 95
[2024-09-15] MEDS: PANTOPRAZOLE 40 MG TAB PO SCH (05:22)
[2024-09-15 08:00] VITALS: PULSE 76; RESP 18; O2SAT 95
[2024-09-15 09:00] VITALS: BP 133/84; PULSE 80; RESP 17; TEMP 98.1; O2SAT 96
--- NOTE | 2024-09-15 09:59 | DVHDS2 ---
Discharge Summary Date of Admission September 08, 2024 at 13:24 Date of Discharge: September 15, 2024 Labs/Diagnostic Data: Laboratory Results Test 09/15/24 05:15 09/15/24 05:03 09/14/24 10:56 09/13/24 05:22 POC Glucose 117 mg/dl (70-106) Creatinine 0.53 mg/dL (0.550-1.02) Glomerular Filtration Rate Calc 100 mL/min (>90) Vancomycin Level Trough 19.9 ug/mL (5-10) White Blood Count 8.2 10^3/uL (4.4-10.8) Red Blood Count 3.74 10^6/uL (4.0-5.20) Hemoglobin 10.9 g/dL (12.2-16.2) Hematocrit 32.9 % (36.0-46.0) Mean Corpuscular Volume 87.9 fL (80.0-100.0) Mean Corpuscular Hemoglobin 29.1 pg (28.0-32.0) Mean Corpuscular Hemoglobin Concent 33.1 g/dL (32.0-36.0) Red Cell Distribution Width 13.9 % (11.8-14.3) Platelet Count 246 10^3/uL (140-450) Mean Platelet Volume 8.9 fL (6.9-10.8) Neutrophils (%) (Auto) 75.2 % (37.0-80.0) Lymphocytes (%) (Auto) 15.7 % (10.0-50.0) Monocytes (%) (Auto) 7.7 % (0.0-12.0) Eosinophils (%) (Auto) 1.3 % (0.0-7.0) Basophils (%) (Auto) 0.1 % (0.0-2.0) Neutrophils # (Auto) 6.2 10 ^3/uL (1.6-8.6) Lymphocytes # (Auto) 1.3 10 ^3/uL (0.4-5.4) Monocytes # (Auto) 0.6 10 ^3/uL (0-1.3) Eosinophils # (Auto) 0.1 10 ^3/uL (0-0.8) Basophils # (Auto) 0 10 ^3/uL (0-0.2) Nucleated Red Blood Cells 0.1 % Test 09/12/24 07:49 09/09/24 05:35 09/08/24 07:36 09/06/24 11:40 Sodium Level 137 mmol/L (136-145) Potassium Level 3.8 mmol/L (3.5-5.1) Chloride Level 102 mmol/L (98-107) Carbon Dioxide Level 26 mmol/L (20-31) Anion Gap 9 (5-15) Blood Urea Nitrogen 6 mg/dL (9-23) BUN/Creatinine Ratio 10.7 (10.0-20.0) Serum Glucose 174 mg/dL (74-106) Calcium Level 8.9 mg/dL (8.7-10.4) Total Bilirubin 0.5 mg/dL (0.2-1.0) Aspartate Amino Transferase (AST) 10 U/L (13-40) Alanine Aminotransferase (ALT) 13 U/L (7-40) Alkaline Phosphatase 94 U/L (46-116) Total Protein 6.0 g/dL (5.7-8.2) Albumin 3.7 g/dL (3.2-4.8) Hemoglobin A1c 6.6 % A1C (<5.7) Prothrombin Time 10.3 sec (9.3-11.8) Prothrombin Time INR 0.97 (0.9-1.15) Activated Partial Thromboplast Time 28.2 SEC (24.5-34.5) Urine Color Colorless (Yellow) Urine Clarity Clear (Clear) Urine pH 5.5 (5.0-9.0) Urine Specific [place] 1.008 (1.001-1.035) Urine Protein Negative (Negative) Urine Ketones Negative (Negative) Urine Blood Negative /uL (Negative) Urine Nitrite Negative (Negative) Urine Bilirubin Negative (Negative) Urine Urobilinogen Normal mg/dL (Negative) Urine Leukocyte Esterase 2+ /uL (Negative) Urine RBC 1 /hpf (0 - 4) Urine Microscopic WBC 10 /HPF (0-5) Urine Squamous Epithelial Cells Few /hpf (<5) Urine Bacteria Few /hpf (None Seen) Urine Hyaline Casts Few /lpf (0 - 2) Urine Glucose Normal mg/dL (Normal) Other Laboratory Tests 09/15/24 05:03 09/13/24 05:22 09/12/24 07:49 Brief Hx & Hospital Course: SEE DICTATED NOTE Condition at Discharge: Fair Final Diagnosis/Problems List VENTRAL HERNIA REPAIR Discharge Disposition: Home Discharge Instruct/Medications Diet: Consistent carbohydrate, Cardiac 2g Na,low cholest Activity: No Restrictions, As Tolerated Follow Up/Referral: SCHEDULE APPT WITH DR TURNER IN 1 WK Medications: RESUME HOME MEDS SCRIPT TO PHARMACY Discharge Statement: "Patient was advised to return to the ER or call 911 if any headaches, dizziness, shortness of breath, chest pain, abdominal pain, bleeding, fevers, or worsening of medical condition. Patient was counseled about treatment plan, medications, possible side effects, patientverbalized understanding. All questions were answered to the best of my ability. This discharge took greater then 30 minutes in planning, reviewing documentation, counseling the patient, and discussing with other team members." ASSESSMENT ASSESSMENT Assessment VENTRAL HERNIA REPAIR Date of Service: September 15, 2024 Billing Provider: GRACIELA GORE MD Common Visit Codes: 02088-CEM/OBS DISCH DAY >30min GRACIELA GORE MD September 15, 2024 09:59
[2024-09-15] MEDS ORDERED: SULF400T11 PO (10:01)
[2024-09-15] MEDS ORDERED: LEVO500T91 PO (10:01)
--- NOTE | 2024-09-15 11:07 | DVHDS ---
DATE OF DISCHARGE: 09/15/2024 HISTORY OF PRESENT ILLNESS: The patient is a 69-year-old lady who is admitted after undergoing surgery for infected hernia mesh and subsequent repair. She has a history of diabetes, hypertension, and hyperlipidemia. HOSPITAL COURSE: The patient had wound cultures that were positive for MRSA and ESBL E. coli and Proteus. She was seen in ID consult by Dr. Sullivan. The patient was placed on treatment with IV meropenem and vancomycin. The patient is currently doing well and is tolerating an oral diet. She will be discharged to resume her home medications as well as to be on Bactrim 1 tab p.o. b.i.d. for 10 days and Levaquin 500 mg daily for 10 days. She will follow up with Dr. Cano in the next 1 week. FINAL DIAGNOSES: * Diabetes mellitus. * Hypertension. * Obesity. * Hyperlipidemia. * Infected hernia mesh repair and replacement with infection secondary to MRSA and ESBL E. coli. Time spent in discharge planning and review of plan with the patient and nursing was 38 minutes. MD GAURAV Jett/CALEB TID: [id number] RECEIPT: [id number]
[2024-09-15 13:00] VITALS: BP 138/87; PULSE 89; RESP 18; TEMP 98; O2SAT 96
[2024-09-15 14:11] VITALS: TEMP 36.7
--- NOTE | 2024-09-18 20:12 | DVHPN2 ---
Consult Progress Note Date Seen: September 14, 2024 Subjective Patient reports: Feels better (no fever or chills) Objective medications Physical Exam: General: NADNeck: Supple. No masses.HEENT: PERRL. Normal lids and conjunctiva. Moist mucous membranes.Oropharynx without lesions, exudates or excessive erythema.Normal appearance of the external aspects of the nose and ears.Heart: Regular rhythm, normal rate. No murmur. No lower extremity edema.Lungs: Normal respiratory effort. Clear to auscultation bilaterally.No wheezes. No crackles.Abdomen: Soft. Non-tender. Non-distended. No masses or abdominal hernia.Msk: No digital cyanosis. Normal strength and tone in all 4 limbsSkin: Warm and dry, no rashes.Neuro: Alert. No facial droop or slurred speech. Extra-ocular movements intact.Sensation intact to soft touch in all 4 limbs.Psych: Appropriate mood. Full affect.Oriented to person, place, time, and situation. laboratory and microbiology Laboratory Tests 09/15/24 05:03 09/13/24 05:22 09/12/24 07:49 Test 09/12/24 07:49 Range/Units Serum Glucose 174 H 74-106 mg/dL Problem List/Assessment/Plan Problem List/Assessment/Plan ASSESSMENT AND PLAN: ID Problem List: - Diabetes mellitus - Hypertension - Hyperlipidemia - Cardiomyopathy with mild congestion - Recurrent ventral hernia, mesh infection status post mesh removal - MRSA, ESBL E. coli, and Proteus mesh infection Assessment This is a 69 year old female with a history of diabetes mellitus, hypertension, hyperlipidemia, and cardiomyopathy with mild congestion, who presents status post excision of extruded infected mesh (ventral hernia repair), lysis of adhesions, repair of enterotomies, and repair of recurrent ventral hernia on September 08. Mesh was removed and cultures from the mesh are growing MRSA, ESBL E. coli, and Proteus. Patient has no ongoing signs or concerns for systemic infection after mesh removal. Relevant labs: Hemoglobin A1c: 6.6 Sodium: 137 BUN: 14 Creatinine: 0.60 09/11: whitecount has come down to 8.3 09/12: tolerating clear liquid diet. still awaiting a BM , which has not happened yet 09/13: blood cultures are no growth to date. whitecount has normalized . vancomycin troths are sub-therapeutic Plan: - recommend checking vancomycin troth to confirm that dose is therapeutic prior to discharge - defer to surgery on advancement of diet recommendations - Continue vancomycin and meropenem IV while inpatient - Monitor for ongoing/worsening infection; obtain repeat blood cultures to ensure clearance - Once ready for discharge, transition to oral antibiotics: Bactrim DS one tablet BID and levofloxacin 750 mg daily to complete a 14-day course - Infectious Disease follow-up in 2 weeks for postoperative evaluation - Defer further management of postoperative abdominal wound to surgical team - Remaining plan unchanged at this time Isolation Precautions: Not specified Plan discussed with: Patient Dietary Evaluation Review Recommendations by RD: Dietary education by RD, Protein Supplementation Comments: 1) Intiate Ensure Clear qd. Encourage optimal PO intake 2) Advance to 60g CCHO diet when medically feasible, pending [employer] approval 3) Refer to outpatient RD/CD[facility] for weight management 4) Follow-up with surgery and cardiology 5) Continue to monitor I&O, labs, and skin integrity Expected Outcomes/Goals: 1) appetite and labs to improve 2) diet to advance 3) f/u in 2-3 days AMANDA CAMPOS MD September 18, 2024 20:12
== END 2024-09-15 15:30 | disposition home or self-care (01) | DRG 909 ==
LOC: SUR 06:22 → OVERFLOW 13:24 → CENTRAL 15:36
PROVIDERS: ADMIT Internal Medicine; ATTEND Internal Medicine
PROC: 0DN80ZZ Release Small Intestine, Open Approach (ICD-10-PCS; 2024-09-08)
PROC: 0WQF0ZZ Repair Abdominal Wall, Open Approach (ICD-10-PCS; 2024-09-08)
PROC: 0WPF0JZ Removal of Synthetic Substitute from Abdominal Wall, Open Approach (ICD-10-PCS; principal; 2024-09-08 09:01)
DX: T85.79XA Infection and inflammatory reaction due to other internal prosthetic devices, implants and grafts, initial encounter (principal); K43.2 Incisional hernia without obstruction or gangrene; E11.9 Type 2 diabetes mellitus without complications; E66.01 Morbid (severe) obesity due to excess calories; I10 Essential (primary) hypertension; K66.0 Peritoneal adhesions (postprocedural) (postinfection); Y83.2 Surgical operation with anastomosis, bypass or graft as the cause of abnormal reaction of the patient, or of later complication, without mention of misadventure at the time of the procedure; B95.62 Methicillin resistant Staphylococcus aureus infection as the cause of diseases classified elsewhere; B96.20 Unspecified Escherichia coli [E. coli] as the cause of diseases classified elsewhere; E78.5 Hyperlipidemia, unspecified; Z80.0 Family history of malignant neoplasm of digestive organs; Z68.35 Body mass index [BMI] 35.0-35.9, adult; Z79.82 Long term (current) use of aspirin; Z79.899 Other long term (current) drug therapy; Z79.84 Long term (current) use of oral hypoglycemic drugs; Y92.89 Other specified places as the place of occurrence of the external cause
CPT/HCPCS: 36415; 71045; 80048; 80053; 80202; 81001; 82565; 82962; 83036; 85025; 85610; 85730; 86850; 86900; 86901; 87040; 87070; 87075; 97110; 97163; G0378; J0131; J0171; J1100; J1815; J1885; J1956; J2003; J2185; J2405; J2470; J2704; J3490

== ENCOUNTER 2024-10-07 10:46 | Inpatient (IN) | payer MEDICARE, MEDICAID ==
[~2024-10-07] VITALS: Ht 152.4 cm; Wt 79.4 kg
[~2024-10-07 10:46] MED LIST changes: +LEVO500T91 PO; +SULF400T11 PO
--- NOTE | 2024-10-07 11:26 | ED.PDOC ---
History of Present Illness(SKN HPI Comments HPI: This is a 69 year old female presenting to the ED with chief complaint of wound check. Patient reports that she had a hernia repair performed by Dr. Cano on 09/08/24. Patient relays that her surgical site has been healing well up until this morning when she woke up with it open and blood leaking from the site. Patient states that she had some abdominal pain yesterday, but it has since resolved. Patient denies any N/V/D, abdominal pain, fever, chills, or purulent drainage at this time. Initial Vitals BP: 110/59 HR: 120 RR: 18 O2 Sat: 95% Temp: 98.4F Past Medical history: HTN, DM, HLD Past Surgical history: Hernia Repair Medications: ASA, Metformin, Glipizide, Gabapentin Social History: Denies smoking, ETOH, and drug use. Allergies: NKDA HPI: Poor Historian. REVIEW OF SYSTEMS: CONSTITUTIONAL: Denies acute: fever, diaphoresis, chills, HEAD: Denies acute: headache, photophobia Eyes: Denies acute: Double vision, vision loss, eye pain, eye discharge. EARS: Denies acute: tinnitus, hearing loss, ear discharge, ear pain, THROAT: Denies acute: sore throat, swelling, difficulty swallowing , pain with swallowing, change in voice. NECK: Denies acute: neck pain, neck swelling, stiff neck. HEART: Denies acute : chest pain, palpitations, LUNGS: Denies acute: SOB, wheezing, cough, hemoptysis ABDOMEN: Denies acute: Nausea, Vomiting, diarrhea, melena , hematemesis, hematochezia SKIN: Denies acute: rash, redness, lesions, itchiness. EXTREMITIES: Denies acute: calf pain, numbness, tingling, weakness, denies pain in extremity. Denies acute: Low back pain. Neuro: Denies acute: focal neurological deficit, motor or sensory focal neurological deficit, tremors, seizure like activity, confusion, dizziness, change in mental status, loss of bowel or bladder function, cauda equina like symptoms. : Denies acute: dysuria, hematuria, flank pain, increase in urinary frequency. PSYCH: Denies acute: hallucination, suicidal ideation, homicidal ideation. FEMALE: Denies acute: abnormal vaginal bleeding, foul odor, unusual discharge. PHYSICAL EXAM: General: ----[id number]----acute distress, awake and alert. Head: normocephalic, atraumatic. Neck: supple, trachea is midline, no swelling. Throat: Normal phonation. Eyes:, no erythema, no purulent discharge, no proptosis, no icterus. Heart: regular rate, regular rhythm, no significant murmur appreciated. Lungs: no apparent respiratory distress, Able to speak in full sentences. No wheezing, no rhonchi, no crackles. No stridors Clear to auscultation bilaterally. Abdomen: Surgical site tender to palpation, non distended, soft, no guarding, no rebound, + bowel sounds. Obese Surgical incision has a small less than half a cm dehiscence that is bleeding and oozing. The bleeding was stopped with gauze and a Q-tip that was packed lightly in the area. Is associated erythema surrounding the surgical site. The area is tender to palpation. Neuro: Awake, Alert, oriented to name, self, situation, follows commands GCS=15. Speech is normal. Skin: no petechia, no purpura, no cyanosis, non-pale, not jaundice. Lower extremities: --no - Pitting edema no deformity, no focal swelling, no calf TTP. Makes eye contact. moves all four extremities. Face: no apparent facial droop. ED COURSE: DISCLAIMER: This medical document was created using an electronic medical record system with voice recognition software and computerized dictation system. Although this document has been carefully reviewed, there might still be some phonetic and typographical errors. Occasional wrong-word or "sound-alike" substitutions may have occurred due to the inherent limitations of voice recognition software. These areas are purely typographical due to imperfections of the software programs and do not reflect any compromise in the patient's medical care. Please read the chart carefully and recognize, using context, where these substitutions have occurred. Time Seen by MD: 11:24 Primary Care Provider: OUT OF AREA History of Present Illness: Medications, Allergies Allergies: Coded Allergies: NO KNOWN ALLERGIES (Unverified , 06/27/23) Home Meds Active Scripts Levofloxacin Hemihydrate (LEVAQUIN 500 MG) 500 Mg Tab, 500 MG PO DAILY for 10 Days, #10 TAB Prov:GRACIELA GORE MD 09/15/24 Sulfamethoxazole-Trimethoprim (Bactrim) 1 Tab Tab, 1 TAB PO BID for 10 Days, #20 TAB Prov:GRACIELA GORE MD 09/15/24 Reported Medications Lurasidone Hydrochloride (Lurasidone Hydrochloride) 40 Mg Tab, 1 TAB PO DAILY 10/07/24 Fluoxetine Hcl (Fluoxetine Hcl) 10 Mg Tab, 1 CAP PO DAILY 10/07/24 Lisinopril (Lisinopril) 10 Mg Tab, 1 TAB PO DAILY 10/07/24 Bupropion Hcl (Bupropion Hcl Xl) 300 Mg Tab, 1 TAB PO DAILY 10/07/24 Aspirin (Aspirin Low Dose) 81 Mg Chw, 81 MG PO DAILY, TAB.CHEW 09/06/24 Atorvastatin Calcium (ATORVASTATIN CALCIUM) 20 Mg Tab, 20 MG PO DAILY, TAB 09/06/24 Lisinopril (Lisinopril) 20 Mg Tab, 20 MG PO DAILY, TAB 09/06/24 Glipizide (Glipizide) 5 Mg Tab, 5 MG PO BID, TAB 09/06/24 Metformin Hydrochloride (Metformin Hcl) 500 Mg Tab, 500 MG PO BID, TAB 09/06/24 Information Source: Patient Mode of Arrival: Ambulatory Was a procedure done? Was a procedure done?: No Differential Diagnosis (INTG) Differential Diagnosis: N/A Differential Diagnosis: Abscess, Cellulitis, Gangrene Abscess: Abscess, Bacteremia, Cellulitis, Gas Gangrene, Other (Seroma, hematoma, necrotizing fasciitis) X-Ray, Labs, Meds, VS Vital Signs Date Time Temp Pulse Resp B/P (MAP) Pulse Ox O2 Delivery O2 Flow Rate FiO2 10/07/24 15:03 97.9 99 18 103/65 (78) 96 97.9 10/07/24 11:10 98.4 120 18 110/59 (76) 95 98.4 Lab Test 10/07/24 13:50 10/07/24 11:50 Range/Units Lactic Acid Level 1.3 2.0 0.4-2.0 mmol/L White Blood Count 13.6 H 4.4-10.8 10^3/uL Red Blood Count 3.99 L 4.0-5.20 10^6/uL Hemoglobin 11.3 L 12.2-16.2 g/dL Hematocrit 34.3 L 36.0-46.0 % Mean Corpuscular Volume 86.1 80.0-100.0 fL Mean Corpuscular Hemoglobin 28.3 28.0-32.0 pg Mean Corpuscular Hemoglobin Concent 32.9 32.0-36.0 g/dL Red Cell Distribution Width 14.6 H 11.8-14.3 % Platelet Count 311 140-450 10^3/uL Mean Platelet Volume 8.1 6.9-10.8 fL Neutrophils (%) (Auto) 83.6 H 37.0-80.0 % Lymphocytes (%) (Auto) 9.6 L 10.0-50.0 % Monocytes (%) (Auto) 6.5 0.0-12.0 % Eosinophils (%) (Auto) 0.1 0.0-7.0 % Basophils (%) (Auto) 0.2 0.0-2.0 % Neutrophils # (Auto) 11.4 H 1.6-8.6 10 ^3/uL Lymphocytes # (Auto) 1.3 0.4-5.4 10 ^3/uL Monocytes # (Auto) 0.9 0-1.3 10 ^3/uL Eosinophils # (Auto) 0 0-0.8 10 ^3/uL Basophils # (Auto) 0 0-0.2 10 ^3/uL Nucleated Red Blood Cells 0.1 % Prothrombin Time 12.5 H 9.3-11.8 sec Prothrombin Time INR 1.20 H 0.9-1.15 Activated Partial Thromboplast Time 34.0 24.5-34.5 SEC Sodium Level 136 136-145 mmol/L Potassium Level 4.1 3.5-5.1 mmol/L Chloride Level 101 98-107 mmol/L Carbon Dioxide Level 23 20-31 mmol/L Anion Gap 12 5-15 Blood Urea Nitrogen 22 9-23 mg/dL Creatinine 1.06 H 0.550-1.02 mg/dL Glomerular Filtration Rate Calc 57 >90 mL/min BUN/Creatinine Ratio 20.8 H 10.0-20.0 Serum Glucose 110 H 74-106 mg/dL Calcium Level 8.9 8.7-10.4 mg/dL Total Bilirubin 0.5 0.2-1.0 mg/dL Aspartate Amino Transferase (AST) 12 <34 U/L Alanine Aminotransferase (ALT) 13 7-40 U/L Alkaline Phosphatase 104 46-116 U/L Total Protein 7.5 5.7-8.2 g/dL Albumin 4.4 3.2-4.8 g/dL Current Medications Medications (Trade) Dose Ordered Sig/Lili Route Start Time Stop Time Status Last Admin Vancomycin HCl 250 ml @ 250 mls/hr ONCE ONCE IV 10/07/24 12:45 10/07/24 13:44 DC 10/07/24 21:04 Piperacillin Sod/ Tazobactam Sod 100 ml @ 100 mls/hr ONCE ONCE IV 10/07/24 12:45 10/07/24 13:44 DC 10/07/24 15:51 Sodium Chloride 1,000 ml @ 1,000 mls/hr Q1H ONCE IV 10/07/24 12:45 10/07/24 13:44 DC 10/07/24 15:50 Sodium Chloride 1,000 ml @ 1,000 mls/hr Q1H ONCE IV 10/07/24 12:45 10/07/24 13:44 DC 10/07/24 18:33 [place] [id number] Ph: [phone] DIAGNOSTIC IMAGING Diagnostic Imaging Report : [id number] Signed PATIENT: JOSELYN ALCANTAR ACCT: [id number] UNIT: [id number] : 1955 LOC: ER ROOM / BED: / AGE / SEX: 69 / F ADM STATUS: REG ER SERVICE [id number] ORDERING PHYSICIAN: KALLI DAY DO PROCEDURE(s): ABPL - CT AB PEL WO CON-NO ORAL OR IV REASON: hernia wound dehiscence ORDER NUMBER(s): [id number], ACCESSION NUMBER(s): [id number] Exam: CT CT AB PEL WO CON-NO ORAL OR IV History: hernia wound dehiscence Comparison Study: None Technique: Multidetector spiral CT of the abdomen and pelvis was performed from lung bases to pubic symphysis. Imaging was performed without intravenous contrast. Coronal and sagittal multiplanar reformats were obtained from the axial data set by the technologist. Radiation Dose : 1. Abdomen/Pelvis: CTDIvol 20.33 mGy, DLP 987.62 mGy*cm. Findings: Evaluation of vasculature and solid organs is limited due to lack of intravenous contrast use. Lung Bases: Lung bases are clear. Visualized portions of the heart and pe ricardium are unremarkable. Liver: The liver is normal in size. No focal lesions. Gallbladder and Biliary Tree: The gallbladder is surgically absent. No intrahepatic or extrahepatic biliary ductal dilatation. Spleen: Unremarkable Pancreas: The pancreas is grossly unremarkable. Adrenal Glands: Unremarkable Kidneys: No evidence of intrarenal calculi or hydronephrosis. 3.9 cm left lower pole cyst. GI tract: The stomach is grossly normal in appearance. No evidence of small bowel wall thickening or abnormal dilatation to suggest bowel obstruction. There are 2 separate surgical anastomosis in proximal bowel loops presumably small- bowel. Fluid-filled appearance of the small bowel loops slightly proximal to the anastomosis without dilatation. These small bowel loops abut the ventral abdominal wall fluid collection described below Sigmoid diverticulosis without acute diverticulitis. The appendix is visualized and is normal. Peritoneum/mesentery/retroperitoneum. No evidence of free intraperitoneal air. No ascites. No evidence of suspicious lymphadenopathy. Abdominal Wall: There is a fluid collection in the ventral abdominal wall containing gas measuring 5.7 cm AP by 7.6 cm transverse by 13.7 cm craniocaudal. Vasculature: The visualized abdominal aorta is normal in size and caliber. Evaluation of abdominal and pelvic vessels is limited due to lack of intravenous contrast. Urinary Bladder: Grossly unremarkable for degree of distention. Pelvic Organs: Unremarkable Musculoskeletal: Age-indeterminate L1 compression deformity. Multilevel lumbar spondylosis. IMPRESSION: 1. 13.7 cm ventral abdominal wall gas containing fluid collection concerning for abscess. 2. Postsurgical changes in the small bowel with anastomosis noted in fluid- filled small bowel loops proximal to the anastomosis without findings to suggest obstruction. 3. Sigmoid diverticulosis without acute diverticulitis. 4. Age-indeterminate L1 compression deformity. 5. Cholecystectomy. ATED BY: PENELOPE HESS MD DICTATED DATE/TIME: 10/07/241214 SIGNED BY: PENELOPE HESS MD SIGNED DATE/TIME: 10/07/241214 CC: [place] [id number] Ph: [phone] DIAGNOSTIC IMAGING Diagnostic Imaging Report : [id number] Signed PATIENT: JOSELYN ALCANTAR ACCT: [id number] UNIT: [id number] : 1955 LOC: ER ROOM / BED: / AGE / SEX: 69 / F ADM STATUS: REG ER SERVICE [id number] ORDERING PHYSICIAN: KALLI DAY DO PROCEDURE(s): CXRP - CHEST PORTABLE REASON: sepsis ORDER NUMBER(s): [id number], ACCESSION NUMBER(s): [id number] XY CHEST PORTABLE, HISTORY: sepsis COMPARISON: XY CHEST PORTABLE on DOS: 09/09/24 XY CHEST PORTABLE on DOS: 09/09/24 TECHNICAL DATA: 1 view of the chest was obtained. FINDINGS: Lines and tubes: None Cardiomediastinal silhouette: normal Pulmonary vasculature: normal Lung expansion: normal Lung airspace: normal Lung interstitium: normal Pleura: normal Pneumothorax: no Bones: Old left humeral head resection. Other: no IMPRESSION: No acute intrathoracic abnormality. ATED BY: ANAM ANNE MD DICTATED DATE/TIME: 10/07/24 1328 SIGNED BY: ANAM ANNE MD SIGNED DATE/TIME: 10/07/24 1328 CC: Time of 1ST Reevaluation: 12:24 Reevaluation 1ST: Unchanged Patient Education/Counseling: Diagnosis, Treatment Family Education/Counseling: No Family Present Comments Sepsis protocol was initiated with weight based fluid resuscitation. Patient presented with the above HPI.--wound dehiscence/abdominal wall abscess/sepsis----workup was initiated. patient was found with the above mentioned diagnosis. the following medications were ordered: please refer to order lists of meds and tests obtained by myself Dr. Day. Patient ED course and VS have been stabilized. Patient has been reassessed in the ED and remained in a stable condition. Pertinent incidental findings were discussed with the patient and/or family. Patient/family voices understanding and is agreeable with plan. Patient has been observed in the ED adequate length of time to insure improvement/stability. Escalation of care considered: Consideration of escalation to observation or admission General surgery were paged multiple times. I was never able to connect with them. Bleeding was controlled. Patient was ADMITTED to the medicine team for further evaluation and treatment o f their presentation. All the reports of any imaging studies that were ordered by myself were reviewed by myself. Departure 1 Departure Time of Disposition: 12:38 Impression: Primary Impression: Abdominal wall abscess Additional Impressions: Postoperative complication Wound dehiscence Yeast UTI Disposition: ADMITTED INPATIENT Admit to: Tele Condition: Guarded Discharged With: Self Critical Care Note Critical Care Time?: Yes (1 hr-critical care time only) I personally scribed for KALLI DAY DO ([email or web address]) on 10/07/24 at 11:26. Electronically submitted by Jeb Pedroza ([email or web address]). I personally scribed for KALLI DAY DO ([email or web address]) on 10/07/24 at 12:00. Electronically submitted by Jeb Pedroza ([email or web address]). I personally scribed for KALLI DAY DO ([email or web address]) on 10/07/24 at 14:38. Electronically submitted by Jeb Pedroza ([email or web address]). KALLI DAY DO Oct 07, 2024 11:26
[2024-10-07 12:11] LABS: Basophils # (auto) 0 10 ^3/uL (0-0.2); Basophils % (auto) 0.2 % (0.0-2.0); Eosinophils # (auto) 0 10 ^3/uL (0-0.8); Eosinophils % (auto) 0.1 % (0.0-7.0); Hematocrit 34.3 % (36.0-46.0); Hemoglobin 11.3 g/dL (12.2-16.2); Lymphocytes # (auto) 1.3 10 ^3/uL (0.4-5.4); Lymphocytes % (auto) 9.6 % (10.0-50.0); Mean Corpuscular Hemoglobin 28.3 pg (28.0-32.0); Mean Corpuscular Hgb Conc. 32.9 g/dL (32.0-36.0); Mean Corpuscular Volume 86.1 fL (80.0-100.0); Monocytes # (auto) 0.9 10 ^3/uL (0-1.3); Monocytes % (auto) 6.5 % (0.0-12.0); Neutrophils # (auto) 11.4 10 ^3/uL (1.6-8.6); Neutrophils % (auto) 83.6 % (37.0-80.0); Nucleated Red Blood Cells % 0.1 %; Platelet Count (auto) 311 10^3/uL (140-450); Red Blood Cells 3.99 10^6/uL (4.0-5.20); Red Cell Distribution Width 14.6 % (11.8-14.3); White Blood Cell 13.6 10^3/uL (4.4-10.8)
--- NOTE | 2024-10-07 12:17 | DVH ---
Exam: CT CT AB PEL WO CON-NO ORAL OR IV History: hernia wound dehiscence Comparison Study: None Technique: Multidetector spiral CT of the abdomen and pelvis was performed from lung bases to pubic s ymphysis. Imaging was performed without intravenous contrast. Coronal and sagittal multiplanar reform ats were obtained from the axial data set by the technologist. Radiation Dose : 1. Abdomen/Pelvis: CTDIvol 20.33 mGy, DLP 987.62 mGy*cm. Findings: Evaluation of vasculature and solid organs is limited due to lack of intravenous contrast use. Lung Bases: Lung bases are clear. Visualized portions of the heart and pericardium are unremarkable. Liver: The liver is normal in size. No focal lesions. Gallbladder and Biliary Tree: The gallbladder is surgically absent. No intrahepatic or extrahepatic b iliary ductal dilatation. Spleen: Unremarkable Pancreas: The pancreas is grossly unremarkable. Adrenal Glands: Unremarkable Kidneys: No evidence of intrarenal calculi or hydronephrosis. 3.9 cm left lower pole cyst. GI tract: The stomach is grossly normal in appearance. No evidence of small bowel wall thickening or abnormal dilatation to suggest bowel obstruction. There are 2 separate surgical anastomosis in proxim al bowel loops presumably small-bowel. Fluid-filled appearance of the small bowel loops slightly prox imal to the anastomosis without dilatation. These small bowel loops abut the ventral abdominal wall fluid collection described below Sigmoid diverticulosis without acute diverticulitis. The appendix is visualized and is normal. Peritoneum/mesentery/retroperitoneum. No evidence of free intraperitoneal air. No ascites. No evidenc e of suspicious lymphadenopathy. Abdominal Wall: There is a fluid collection in the ventral abdominal wall containing gas measuring 5. 7 cm AP by 7.6 cm transverse by 13.7 cm craniocaudal. Vasculature: The visualized abdominal aorta is normal in size and caliber. Evaluation of abdominal a nd pelvic vessels is limited due to lack of intravenous contrast. Urinary Bladder: Grossly unremarkable for degree of distention. Pelvic Organs: Unremarkable Musculoskeletal: Age-indeterminate L1 compression deformity. Multilevel lumbar spondylosis. IMPRESSION: 1. 13.7 cm ventral abdominal wall gas containing fluid collection concerning for abscess. 2. Postsurgical changes in the small bowel with anastomosis noted in fluid-filled small bowel loops p roximal to the anastomosis without findings to suggest obstruction. 3. Sigmoid diverticulosis without acute diverticulitis. 4. Age-indeterminate L1 compression deformity. 5. Cholecystectomy.
[2024-10-07 12:26] LABS: INR 1.2 (0.9-1.15); Prothrombin Time 12.5 sec (9.3-11.8)
[2024-10-07 12:28] LABS: Alanine Aminotransferase 13 U/L (7-40); Albumin 4.4 g/dL (3.2-4.8); Alkaline Phosphatase 104 U/L (46-116); Anion Gap 12 (5-15); Aspartate Aminotransferase 12 U/L (<34); BUN/Creatinine Ratio 20.8 (10.0-20.0); Bilirubin, Total 0.5 mg/dL (0.2-1.0); Blood Urea Nitrogen 22 mg/dL (9-23); Calcium 8.9 mg/dL (8.7-10.4); Carbon Dioxide 23 mmol/L (20-31); Chloride 101 mmol/L (98-107); Potassium 4.1 mmol/L (3.5-5.1); Total Protein 7.5 g/dL (5.7-8.2)
[2024-10-07 12:30] LABS: Glucose 110 mg/dL (74-106); Sodium 136 mmol/L (136-145)
--- NOTE | 2024-10-07 13:30 | DVH ---
XY CHEST PORTABLE, HISTORY: sepsis COMPARISON: XY CHEST PORTABLE on DOS: 09/09/24 XY CHEST PORTABLE on DOS: 09/09/24 TECHNICAL DATA: 1 view of the chest was obtained. FINDINGS: Lines and tubes: None Cardiomediastinal silhouette: normal Pulmonary vasculature: normal Lung expansion: normal Lung airspace: normal Lung interstitium: normal Pleura: normal Pneumothorax: no Bones: Old left humeral head resection. Other: no IMPRESSION: No acute intrathoracic abnormality.
[2024-10-07] MEDS: SODIUM CHLORIDE 0.9% 1,000 ML IV ONE ×3 (15:50→21:04)
[2024-10-07] MEDS: PIPERACILLIN-TAZOB 3.375GM 100 ML IV ONE (15:51)
[2024-10-07] MEDS ORDERED: VANCOMYCIN PER PHARMACY 0 MG IV SCH (16:00)
[2024-10-07] MEDS ORDERED: MORPHINE SULFATE INJ 2 MG/ml SYRG IV PRN (16:00)
[2024-10-07] MEDS ORDERED: LISI10TA34 PO (16:00)
[2024-10-07] MEDS ORDERED: ONDANSETRON HCL 4 MG/2 ML VIAL IV PRN (16:00)
[2024-10-07] MEDS ORDERED: HYDROcodone-ACET 5/325MG TAB PO PRN (16:00)
[2024-10-07] MEDS ORDERED: NITROGLYCERIN 0.4 MG SL TAB SL PRN (16:00)
[2024-10-07] MEDS ORDERED: ACETAMINOPHEN 325 MG TAB PO PRN (16:00)
[2024-10-07] MEDS ORDERED: BUPR-581 PO (16:00)
[2024-10-07] MEDS ORDERED: FLUO10TA18 PO (16:00)
[2024-10-07] MEDS ORDERED: LURA40TA3 PO (16:00)
--- NOTE | 2024-10-07 16:01 | DVHHP2 ---
History of Present Illness Reason for Visit: Abdominal wound with leaking History of Present Illness Gladis Munoz is a 69-year-old female with past medical history of hypertension, hyperlipidemia, diabetes, obesity, cholecystectomy, and hernia repair who presents to the ED with an abdominal wound that was leaking that started this morning. Patient states that she had surgery last month and is back due to the leaking. Patient complains of pain that is 5/10 sharp and constant. Patient denies any chest pain, shortness of breath, fever, chills, lightheadedness, weakness, dizziness, recent trauma or injury, recent sick contacts, recent ingestion of spoiled food, nausea, vomiting, or diarrhea. Cardiovascular: HTN, hyperipidemia Endocrine: Diabetes Past Medical History Obesity Past Surgical History: Cholecystectomy, Hernia Repair Family History: None Smoke: No ALCOHOL: none Drugs: None Lives: with Family Domestic Violence: Neg Review of Systems Skin: Other (Leaking abdominal wound from recent surgery) Allergies: Coded Allergies: NO KNOWN ALLERGIES (Unverified , 06/27/23) Medications Current Medications Medications Dose Ordered Sig/Lili Route Start Time Stop Time Status Last Admin Dose Admin Vancomycin HCl 0 ml @ 0 mls/hr UD IV 10/07/24 16:00 UNV Piperacillin Sod/ Tazobactam Sod 100 ml @ 25 mls/hr Q8HR IV 10/07/24 22:00 UNV Acetaminophen/ Hydrocodone Bitart 1 tab Q4HP PRN PO 10/07/24 16:00 UNV Ondansetron HCl 4 mg Q4HP PRN IV 10/07/24 16:00 UNV Acetaminophen 650 mg Q6HP PRN PO 10/07/24 16:00 UNV Morphine Sulfate 2 mg Q4HPRN PRN IV 10/07/24 16:00 UNV Nitroglycerin 0.4 mg Q5MINP PRN SL 10/07/24 16:00 UNV Morphine Sulfate 2 mg Q30M PRN IV 10/07/24 16:00 UNV Exam Vital Signs Vital Signs Date Time Temp Pulse Resp B/P (MAP) Pulse Ox O2 Delivery O2 Flow Rate FiO2 10/07/24 15:03 97.9 99 18 103/65 (78) 96 97.9 General Appearance: Alert, Oriented X3, Cooperative, No acute distress HEENT: Atraumatic, PERRLA, EOMI, Mucous membr. moist/pink Respiratory: Clear to auscultation, Normal air movement Cardiovascular: Normal S1, Normal S2 Abdominal: Soft Extremities: Normal pulses Neuro: Normal speech, Strength at 5/5 X4 ext, Normal tone, Sensation intact Psych/Mental Status: Mental status NL, Mood NL Labs/Xrays Labs Test 10/07/24 13:50 10/07/24 11:50 Range/Units Lactic Acid Level 1.3 0.4-2.0 mmol/L White Blood Count 13.6 H 4.4-10.8 10^3/uL Red Blood Count 3.99 L 4.0-5.20 10^6/uL Hemoglobin 11.3 L 12.2-16.2 g/dL Hematocrit 34.3 L 36.0-46.0 % Mean Corpuscular Volume 86.1 80.0-100.0 fL Mean Corpuscular Hemoglobin 28.3 28.0-32.0 pg Mean Corpuscular Hemoglobin Concent 32.9 32.0-36.0 g/dL Red Cell Distribution Width 14.6 H 11.8-14.3 % Platelet Count 311 140-450 10^3/uL Mean Platelet Volume 8.1 6.9-10.8 fL Neutrophils (%) (Auto) 83.6 H 37.0-80.0 % Lymphocytes (%) (Auto) 9.6 L 10.0-50.0 % Monocytes (%) (Auto) 6.5 0.0-12.0 % Eosinophils (%) (Auto) 0.1 0.0-7.0 % Basophils (%) (Auto) 0.2 0.0-2.0 % Neutrophils # (Auto) 11.4 H 1.6-8.6 10 ^3/uL Lymphocytes # (Auto) 1.3 0.4-5.4 10 ^3/uL Monocytes # (Auto) 0.9 0-1.3 10 ^3/uL Eosinophils # (Auto) 0 0-0.8 10 ^3/uL Basophils # (Auto) 0 0-0.2 10 ^3/uL Nucleated Red Blood Cells 0.1 % Prothrombin Time 12.5 H 9.3-11.8 sec Prothrombin Time INR 1.20 H 0.9-1.15 Activated Partial Thromboplast Time 34.0 24.5-34.5 SEC Sodium Level 136 136-145 mmol/L Potassium Level 4.1 3.5-5.1 mmol/L Chloride Level 101 98-107 mmol/L Carbon Dioxide Level 23 20-31 mmol/L Anion Gap 12 5-15 Blood Urea Nitrogen 22 9-23 mg/dL Creatinine 1.06 H 0.550-1.02 mg/dL Glomerular Filtration Rate Calc 57 >90 mL/min BUN/Creatinine Ratio 20.8 H 10.0-20.0 Serum Glucose 110 H 74-106 mg/dL Calcium Level 8.9 8.7-10.4 mg/dL Total Bilirubin 0.5 0.2-1.0 mg/dL Aspartate Amino Transferase (AST) 12 <34 U/L Alanine Aminotransferase (ALT) 13 7-40 U/L Alkaline Phosphatase 104 46-116 U/L Total Protein 7.5 5.7-8.2 g/dL Albumin 4.4 3.2-4.8 g/dL Exam: CT CT AB PEL WO CON-NO ORAL OR IV History: hernia wound dehiscence Comparison Study: None Technique: Multidetector spiral CT of the abdomen and pelvis was performed from lung bases to pubic symphysis. Imaging was performed without intravenous contrast. Coronal and sagittal multiplanar reformats were obtained from the axial data set by the technologist. Radiation Dose : 1. Abdomen/Pelvis: CTDIvol 20.33 mGy, DLP 987.62 mGy*cm. Findings: Evaluation of vasculature and solid organs is limited due to lack of intravenous contrast use. Lung Bases: Lung bases are clear. Visualized portions of the heart and pericardium are unremarkable. Liver: The liver is normal in size. No focal lesions. Gallbladder and Biliary Tree: The gallbladder is surgically absent. No intrahepatic or extrahepatic biliary ductal dilatation. Spleen: Unremarkable Pancreas: The pancreas is grossly unremarkable. Adrenal Glands: Unremarkable Kidneys: No evidence of intrarenal calculi or hydronephrosis. 3.9 cm left lower pole cyst. GI tract: The stomach is grossly normal in appearance. No evidence of small bowel wall thickening or abnormal dilatation to suggest bowel obstruction. There are 2 separate surgical anastomosis in proximal bowel loops presumably small- bowel. Fluid-filled appearance of the small bowel loops slightly proximal to the anastomosis without dilatation. These small bowel loops abut the ventral abdominal wall fluid collection described below Sigmoid diverticulosis without acute diverticulitis. The appendix is visualized and is normal. Peritoneum/mesentery/retroperitoneum. No evidence of free intraperitoneal air. No ascites. No evidence of suspicious lymphadenopathy. Abdominal Wall: There is a fluid collection in the ventral abdominal wall containing gas measuring 5.7 cm AP by 7.6 cm transverse by 13.7 cm craniocaudal. Vasculature: The visualized abdominal aorta is normal in size and caliber. Evaluation of abdominal and pelvic vessels is limited due to lack of intravenous contrast. Urinary Bladder: Grossly unremarkable for degree of distention. Pelvic Organs: Unremarkable Musculoskeletal: Age-indeterminate L1 compression deformity. Multilevel lumbar spondylosis. IMPRESSION: 1. 13.7 cm ventral abdominal wall gas containing fluid collection concerning for abscess. 2. Postsurgical changes in the small bowel with anastomosis noted in fluid- filled small bowel loops proximal to the anastomosis without findings to suggest obstruction. 3. Sigmoid diverticulosis without acute diverticulitis. 4. Age-indeterminate L1 compression deformity. 5. Cholecystectomy. XY CHEST PORTABLE, HISTORY: sepsis COMPARISON: XY CHEST PORTABLE on DOS: 09/09/24 XY CHEST PORTABLE on DOS: 09/09/24 TECHNICAL DATA: 1 view of the chest was obtained. FINDINGS: Lines and tubes: None Cardiomediastinal silhouette: normal Pulmonary vasculature: normal Lung expansion: normal Lung airspace: normal Lung interstitium: normal Pleura: normal Pneumothorax: no Bones: Old left humeral head resection. Other: no IMPRESSION: No acute intrathoracic abnormality. Assessment/Plan Assessment/Plan Assessment Abdominal wound with probable abscess Leukocytosis likely due to abdominal abscess Anemia TAYLOR Sigmoid diverticulosis L1 compression deformity Obesity History of recurrent ventral hernia repair last month History of hypertension History of hyperlipidemia History of diabetes type 2 History of cholecystectomy Plan Admit to med surge UA NS 2 L given ED IV antibiotics-vancomycin + Zosyn Lactic noted Chest x-ray UA PT/PTT Blood cultures PT INR PT/PTT CT abdomen and pelvis Hemoglobin A1c ISS and Accu-Cheks Wound culture Diet Home medications reconciled DVT prophylaxis-SCDs PUD prophylaxis-not indicated no history of GERD or GI bleed Discussed plan of care with patient and nurse General surgery consult Counseled patient on lifestyle modifications, diet, and exercise Plan discussed with: Patient My Orders Orders - TAY LUNSFORD Procedure Category Date Status Time * Surgical Consult CONS 10/07/24 Transmitted Vancomycin Per PHA 10/07/24 Logged Pharmacy 16:00 Piperacillin-Tazob PHA 10/07/24 Logged 3.375gm (Zosyn 3.375g 22:00 Admit ADMIT 10/07/24 Transmitted 15:56 Allergies EMETERIO 10/07/24 In Process 15:56 Code Status CODE 10/07/24 Transmitted 15:56 Hydrocodone-Acet PHA 10/07/24 Logged 5/325mg Tab (Swatara 16:00 Ondansetron Hcl PHA 10/07/24 Logged (Zofran) 16:00 Complete Blood Count LAB 10/08/24 Verified 04:00 Comprehensive LAB 10/08/24 Verified Metabolic Panel 04:00 Cardiac DIET 10/07/24 Transmitted Diet-2gna,Lofat,Lochol Dinner Acetaminophen Tablet PHA 10/07/24 Logged (Tylenol Tablet) 16:00 Morphine Sulfate PHA 10/07/24 Logged Injection 16:00 Sequential EMETERIO 10/07/24 In Process Compression Device Nitroglycerin PHA 10/07/24 Logged Sublingual (Ntrostat 16:00 Morphine Sulfate PHA 10/07/24 Logged Injection 16:00 Stat Ekg For Chest EMETERIO 10/07/24 In Process Pain 15:56 Notify Md Of Changes EMETERIO 10/07/24 In Process From Base 15:56 Software Engineer Mobile For [facility] [place] 10/07/24 In Process 24 Hours 15:56 Emergency Dysrhythmia [facility] [place] 10/07/24 In Process Protocol 15:56 Rhythm Strips Once [facility] [place] 10/07/24 In Process Every Shift 15:56 Oxygen By Nasal RT 10/07/24 Transmitted Cannula 15:56 Urinalysis LAB 10/07/24 Logged 15:56 Atorvastatin (Lipitor) PHA 10/08/24 Transmitted 10:00 Lisinopril Tablet PHA 10/08/24 Transmitted (Zestril Tablet) 10:00 (Nf) Aspirin (Aspirin PHA 10/08/24 Transmitted Low Dose) 10:00 Date of Service: Oct 07, 2024 Billing Provider: TAY LUNSFORD Common Visit Codes: [id number] INP/OBS CARE (HIGH) TAY LUNSFORD Oct 07, 2024 16:01
[2024-10-07] MEDS: VANCOMYCIN 750MG KIT 100 ML IV SCH (17:00)
[2024-10-07 17:20] LABS: Urine Bacteria None Seen /hpf (None Seen)
[2024-10-07 17:27] LABS: Urine Blood 2+ /uL (Negative); Urine Budding Yeast OCCASIONAL /hpf (None Seen); Urine Clarity Turbid (Clear); Urine Color Yellow (Yellow); Urine Hyaline Cast FEW /lpf (0 - 2); Urine Protein, UAD Negative (Negative); Urine Specific Gravity 1.016 (1.001-1.035); Urine Squamous Epithelial Cell MOD /hpf (<5); Urine Urobilinogen Normal (Negative); Urine WBC 13 /HPF (0-5); Urine pH 5.5 (5.0-9.0)
[2024-10-07] MEDS ORDERED: DEXTROSE (50%) 50ML SYRG IV PRN (17:30)
[2024-10-07] MEDS: FLUCONAZOLE 100 MG TAB PO ONE (20:58)
[2024-10-07] MEDS: VANCOMYCIN 1GM/200ML PM 250 ML IV ONE (21:04)
[2024-10-07] MEDS: InsuLIN REG 1unit/0.01ml Soln (100units/ml) SC SCH (22:00)
[2024-10-07 22:25] VITALS: BP 105/59; PULSE 75; PULSE 86; RESP 14; TEMP 97.8; O2SAT 95; O2SAT 97
[2024-10-07] MEDS: PIPERACILLIN-TAZOB 3.375GM 100 ML IV SCH (23:08)
[2024-10-07] MEDS: ACCU-CHEK COMFORT CURVE STRIP VI SCH (23:09)
[2024-10-08] VITALS (8 sets, daily range): BP systolic 98–176; BP diastolic 54–70; PULSE 71–86; RESP 14–19; TEMP 97.5–98.2; O2SAT 94–98
[2024-10-08 06:02] LABS: Basophils # (auto) 0 10 ^3/uL (0-0.2); Basophils % (auto) 0.2 % (0.0-2.0); Eosinophils # (auto) 0.1 10 ^3/uL (0-0.8); Eosinophils % (auto) 0.9 % (0.0-7.0); Hematocrit 28.3 % (36.0-46.0); Hemoglobin 9.7 g/dL (12.2-16.2); Lymphocytes % (auto) 12.7 % (10.0-50.0); Mean Corpuscular Hemoglobin 29.3 pg (28.0-32.0); Mean Corpuscular Hgb Conc. 34.2 g/dL (32.0-36.0); Mean Corpuscular Volume 85.6 fL (80.0-100.0); Monocytes # (auto) 0.4 10 ^3/uL (0-1.3); Monocytes % (auto) 5.1 % (0.0-12.0); Neutrophils # (auto) 6.3 10 ^3/uL (1.6-8.6); Neutrophils % (auto) 81.1 % (37.0-80.0); Platelet Count (auto) 251 10^3/uL (140-450); Red Blood Cells 3.31 10^6/uL (4.0-5.20); Red Cell Distribution Width 14.6 % (11.8-14.3); White Blood Cell 7.8 10^3/uL (4.4-10.8)
[2024-10-08 06:23] LABS: Alanine Aminotransferase 14 U/L (7-40); Albumin 3.6 g/dL (3.2-4.8); Alkaline Phosphatase 85 U/L (46-116); Anion Gap 12 (5-15); BUN/Creatinine Ratio 23.1 (10.0-20.0); Blood Urea Nitrogen 15 mg/dL (9-23); Carbon Dioxide 20 mmol/L (20-31); Chloride 107 mmol/L (98-107); Potassium 3.7 mmol/L (3.5-5.1); Sodium 139 mmol/L (136-145); Total Protein 5.9 g/dL (5.7-8.2)
[2024-10-08 06:24] LABS: Aspartate Aminotransferase 18 U/L (<34); Bilirubin, Total 0.3 mg/dL (0.2-1.0)
[2024-10-08 06:25] LABS: Calcium 7.6 mg/dL (8.7-10.4); Glucose 209 mg/dL (74-106)
[2024-10-08] MEDS: LISINOPRIL 5 MG TAB PO SCH (10:00)
[2024-10-08] MEDS ORDERED: LISINOPRIL 20 MG TAB PO SCH (10:00)
--- NOTE | 2024-10-08 11:34 | DVHINCON2 ---
DATE OF CONSULTATION: 10/08/2024 SURGICAL CONSULTATION HISTORY OF PRESENT ILLNESS: The patient is a 69-year-old morbidly obese female with a history of hypertension, hyperlipidemia, diabetes, and obesity. She had a cholecystectomy and a hernia repair, following which she had an extruded mesh, for which I had operated on her approximately 1 month ago. At that time, she had the mesh removed without foreign material. Subsequently, she developed a leak from the wound yesterday, for which she presented to the Emergency Room and was admitted. There is clear bloody fluid emanating from the wound. The wound was probed. It seems to be closed with the exception of a circular defect approximately 1.5 cm in diameter and approximately 2 cm in depth, which I packed with a Kerlix suture. I believe this is a postoperative wound infection, which was anticipated due to the infected mesh that was removed from her abdominal wall previously. PAST SURGICAL HISTORY: She has a history of diabetes and obesity. She had previous cholecystectomy and abdominal wall hernia repair (multiple times). SOCIAL HISTORY: The patient is a nondrinker, nonsmoker. She uses no drugs. PHYSICAL EXAMINATION: GENERAL: Well-oriented, well-nourished, obese female. HEENT: Pupils are equal, round, reactive to light equally. Sclerae nonicteric. Extraocular motion is intact. Uvula midline. NECK: Trachea midline. Carotids are full without bruits. Jugular veins are collapsed. HEART: Regular rate and rhythm without murmur or gallop. ABDOMEN: Nondistended, nontender. There is a wound in the midline of her scar, which is leaking clear bloody fluid. No evidence of purulence. No CVA tenderness. EXTREMITIES: No peripheral vascular insufficiency. No venous stasis. REVIEW OF SYSTEMS: As outlined above, diabetes, hypertension, hyperlipidemia. She had a normal postoperative course for the first 4 weeks postoperatively and developed leakage of what appears to be a hematoma or a seroma from the wound, which is being treated conservatively. LABORATORY DATA: The patient's white count is 13.6, hemoglobin is 11.3, platelet count is 311. The patient's chemistry shows an elevated creatinine at 1.06 with a normal BUN. Liver enzymes sound normal. CT scan of the abdomen was done showing a 13.7 cm ventral abdominal wall containing fluid collection concerning for abscess. Postsurgical changes in the small bowel with anastomosis and fluid-filled small bowel loops, sigmoid colon diverticulosis and evidence of cholecystectomy. ASSESSMENT AND PLAN: There is no indication for surgical intervention at this point. I have evaluated the patient thoroughly and at this time, I do not believe there is an indication for surgical intervention. I will leave orders for wound care and I will follow with them. MD MYA García/VIRY TID: [id number] RECEIPT: [id number]
[2024-10-08] MEDS: LURASIDONE 40 MG PO SCH (12:00)
[2024-10-08] MEDS: FLUoxetine HCL 10 MG CAP PO SCH (12:39)
[2024-10-08] MEDS: ASPirin-EC 81 mg tab PO SCH (12:39)
[2024-10-08] MEDS: SODIUM CHLORIDE 0.9% 1,000 ML IV SCH (12:42)
--- NOTE | 2024-10-08 13:16 | DVHPN2 ---
Subjective Denies any acute symptoms Reviewed: Care Plan, H&P, Medications Changes from previous H/P or p: No Changes General: Per HPI Skin: Other (Leaking abdominal wound from recent surgery) Objective Vitals Vital Signs Date Time Temp Pulse Resp B/P (MAP) Pulse Ox O2 Delivery O2 Flow Rate FiO2 10/08/24 12:59 97.7 76 18 109/62 (78) 95 97.7 10/08/24 08:00 Room Air* 0 21 Intake/Output Intake and Output 10/08/24 07:00 Intake Total 300 ml Balance 300 ml Intake Oral 300 ml # Voids 1 General Appearance: Alert, Oriented X3, Cooperative, No acute distress HEENT: Atraumatic, PERRLA Lungs: Clear to auscultation, Normal air movement Cardiovascular: Normal S1, Normal S2 Abdomen: Normal bowel sounds, Soft, No tenderness, Other (Abdominal wound with drainage.) Neuro: Normal gait, Normal speech Skin: Wounds (See nurse notes and pictures) Psych/Mental Status: Mental status NL, Mood NL Medications Current Medications Medications Dose Ordered Sig/Lili Route Start Time Stop Time Status Last Admin Dose Admin Vancomycin HCl 0 ml @ 0 mls/hr UD IV 10/07/24 16:00 Piperacillin Sod/ Tazobactam Sod 100 ml @ 25 mls/hr Q8HR IV 10/07/24 22:00 10/08/24 05:44 25 MLS/HR Acetaminophen/ Hydrocodone Bitart 1 tab Q4HP PRN PO 10/07/24 16:00 Ondansetron HCl 4 mg Q4HP PRN IV 10/07/24 16:00 Acetaminophen 650 mg Q6HP PRN PO 10/07/24 16:00 Morphine Sulfate 2 mg Q4HPRN PRN IV 10/07/24 16:00 Nitroglycerin 0.4 mg Q5MINP PRN SL 10/07/24 16:00 Morphine Sulfate 2 mg Q30M PRN IV 10/07/24 16:00 Atorvastatin Calcium 20 mg HS PO 10/08/24 22:00 Aspirin 81 mg DAILY PO 10/08/24 10:00 10/08/24 12:39 81 MG Fluoxetine HCl 10 mg DAILY PO 10/08/24 10:00 10/08/24 12:39 10 MG Patient Own Medication 1 tab DAILY PO 10/08/24 10:00 Lisinopril 10 mg DAILY PO 10/08/24 10:00 Patient Own Medication 1 tab DAILY@LUNCH PO 10/08/24 12:00 Vancomycin HCl 100 ml @ 100 mls/hr Q12H IV 10/07/24 17:00 10/08/24 07:17 100 MLS/HR Diagnostic Test (Pha) 1 strip ACHS 10/07/24 22:00 10/08/24 05:36 1 STRIP Insulin Human Regular ACHS SC 10/07/24 22:00 10/08/24 06:59 3 UNITS Dextrose 50 ml UD PRN IV 10/07/24 17:30 Sodium Chloride 1,000 ml @ 100 mls/hr Q10H IV 10/08/24 07:45 10/08/24 12:42 100 MLS/HR Laboratory Results Laboratory Tests 10/08/24 05:03 Chemistry Test 10/08/24 05:03 Albumin 3.6 g/dL (3.2-4.8) Calcium Level 7.6 mg/dL (8.7-10.4) L Total Protein 5.9 g/dL (5.7-8.2) LFT Test 10/08/24 05:03 Alanine Aminotransferase (ALT) 14 U/L (7-40) Alkaline Phosphatase 85 U/L (46-116) Aspartate Amino Transferase (AST) 18 U/L (<34) Total Bilirubin 0.3 mg/dL (0.2-1.0) Urinalysis Test 10/07/24 17:00 Urine Color Yellow (Yellow) Urine Clarity Turbid (Clear) H Urine pH 5.5 (5.0-9.0) Urine Specific [place] 1.016 (1.001-1.035) Urine Protein Negative (Negative) Urine Ketones Negative (Negative) Urine Blood 2+ /uL (Negative) H Urine Nitrite Negative (Negative) Urine Bilirubin Negative (Negative) Urine Urobilinogen Normal mg/dL (Negative) Urine Leukocyte Esterase 2+ /uL (Negative) Urine RBC 11 /hpf (0 - 4) Urine Microscopic WBC 13 /HPF (0-5) H Urine Squamous Epithelial Cells Mod /hpf (<5) Urine Bacteria None seen /hpf (None Seen) Urine Hyaline Casts Few /lpf (0 - 2) Urine Yeast (Budding) Occasional /hpf (None Urine Glucose Normal mg/dL (Normal) Labs and/or images reviewed: Labs reviewed by me, Image(s) reviewed by me Assessment/Plan Assessment/Plan Impression: -sepsis -infected abdominal postop wound. -history of ESBL, MRSA, Proteus mirabilis -obesity -recent hernia mesh replacement -L1 compression fracture -primary hypertension -diabetes mellitus -dyslipidemia Plan: -surgical consultation: Recommendations reviewed -wound care consultation -wound consult -change antibiotic therapy to Meropenem , vancomycin -hold antihypertensives given low blood pressure -pain management -repeat labs in a.m. Total time spent with patient discussing and formulating plan of care: 35 minutes. This medical document was created using an electronic medical record system with [employer] dictation system. Although this document has been carefully reviewed, there may still be some phonetic and typographical errors. These areas are purely typographical due to imperfections of the software programs, and do not reflect any compromise in the patient's medical care. Plan discussed with: Patient, Other (RN) My Orders Orders - BEATRIS BONE NP Procedure Category Date Status Time * Infectious Luis Manuel- CONS 10/08/24 Transmitted Ayush Sullivan 13:07 Meropenem 1gm PHA 10/08/24 Transmitted Q8h(Gfr>50) 14:00 Date of Service: Oct 08, 2024 Billing Provider: BEATRIS BONE NP Common Visit Codes: [id number] INP/OBS CARE(HIGH) BEATRIS BONE NP Oct 08, 2024 13:16
[2024-10-08] MEDS: MEROPENEM 1GM IVPB 50 ML IV SCH (14:41)
[2024-10-08] MEDS: VANCOMYCIN 750MG KIT 100 ML IV SCH (18:00)
[2024-10-08] MEDS: MORPHINE SULFATE INJ 2 MG/ml SYRG IV PRN (21:18)
[2024-10-08] MEDS: ATORVASTATIN 20 MG TAB PO SCH (21:26)
[2024-10-09] VITALS (7 sets, daily range): BP systolic 113–125; BP diastolic 62–79; PULSE 60–69; RESP 16–20; TEMP 97.8–98.3; O2SAT 95–98
--- NOTE | 2024-10-09 13:22 | DVHINCON2 ---
Date of service: Oct 09, 2024 Family History: Colon cancer G8 MOTHER Allergies: Coded Allergies: NO KNOWN ALLERGIES (Unverified , 06/27/23) Home Meds Active Scripts Levofloxacin Hemihydrate (LEVAQUIN 500 MG) 500 Mg Tab, 500 MG PO DAILY for 10 Days, #10 TAB Prov:GRACIELA GORE MD 09/15/24 Sulfamethoxazole-Trimethoprim (Bactrim) 1 Tab Tab, 1 TAB PO BID for 10 Days, #20 TAB Prov:GRACIELA GORE MD 09/15/24 Reported Medications Lurasidone Hydrochloride (Lurasidone Hydrochloride) 40 Mg Tab, 1 TAB PO DAILY 10/07/24 Fluoxetine Hcl (Fluoxetine Hcl) 10 Mg Tab, 1 CAP PO DAILY 10/07/24 Lisinopril (Lisinopril) 10 Mg Tab, 1 TAB PO DAILY 10/07/24 Bupropion Hcl (Bupropion Hcl Xl) 300 Mg Tab, 1 TAB PO DAILY 10/07/24 Aspirin (Aspirin Low Dose) 81 Mg Chw, 81 MG PO DAILY, TAB.CHEW 09/06/24 Atorvastatin Calcium (ATORVASTATIN CALCIUM) 20 Mg Tab, 20 MG PO DAILY, TAB 09/06/24 Glipizide (Glipizide) 5 Mg Tab, 5 MG PO BID, TAB 09/06/24 Metformin Hydrochloride (Metformin Hcl) 500 Mg Tab, 500 MG PO BID, TAB 09/06/24 Discontinued Reported Medications Lisinopril (Lisinopril) 20 Mg Tab, 20 MG PO DAILY, TAB 09/06/24 Current Medications Current Medications Medications (Trade) Dose Ordered Sig/Lili Route PRN Reason Start Time Stop Time Status Last Admin Atorvastatin Calcium (Lipitor) 20 mg HS PO 10/08/24 22:00 10/08/24 21:26 Meropenem 50 ml @ 17 mls/hr Q8HR IV 10/08/24 14:00 10/09/24 13:05 Vancomycin HCl 100 ml @ 100 mls/hr Q12H IV 10/08/24 18:00 10/09/24 05:35 Vital Signs Vital Signs Date Time Temp Pulse Resp B/P (MAP) Pulse Ox O2 Delivery O2 Flow Rate FiO2 10/09/24 13:17 97.9 63 17 118/79 (92) 95 97.9 10/09/24 08:00 Room Air* 0 21 Labs/Diagnostic Data Labs Test 10/09/24 11:59 10/09/24 06:58 10/08/24 05:03 10/07/24 17:00 Range/Units POC Glucose 218 H 70-106 mg/dl Creatinine 0.52 L 0.550-1.02 mg/dL Glomerular Filtration Rate Calc 101 >90 mL/min White Blood Count 7.8 # 4.4-10.8 10^3/uL Red Blood Count 3.31 L 4.0-5.20 10^6/uL Hemoglobin 9.7 L 12.2-16.2 g/dL Hematocrit 28.3 #L 36.0-46.0 % Mean Corpuscular Volume 85.6 80.0-100.0 fL Mean Corpuscular Hemoglobin 29.3 28.0-32.0 pg Mean Corpuscular Hemoglobin Concent 34.2 32.0-36.0 g/dL Red Cell Distribution Width 14.6 H 11.8-14.3 % Platelet Count 251 140-450 10^3/uL Mean Platelet Volume 8.2 6.9-10.8 fL Neutrophils (%) (Auto) 81.1 H 37.0-80.0 % Lymphocytes (%) (Auto) 12.7 10.0-50.0 % Monocytes (%) (Auto) 5.1 0.0-12.0 % Eosinophils (%) (Auto) 0.9 0.0-7.0 % Basophils (%) (Auto) 0.2 0.0-2.0 % Neutrophils # (Auto) 6.3 1.6-8.6 10 ^3/uL Lymphocytes # (Auto) 1.0 0.4-5.4 10 ^3/uL Monocytes # (Auto) 0.4 0-1.3 10 ^3/uL Eosinophils # (Auto) 0.1 0-0.8 10 ^3/uL Basophils # (Auto) 0 0-0.2 10 ^3/uL Nucleated Red Blood Cells 0.0 % Sodium Level 139 136-145 mmol/L Potassium Level 3.7 3.5-5.1 mmol/L Chloride Level 107 98-107 mmol/L Carbon Dioxide Level 20 20-31 mmol/L Anion Gap 12 5-15 Blood Urea Nitrogen 15 9-23 mg/dL BUN/Creatinine Ratio 23.1 H 10.0-20.0 Serum Glucose 209 H 74-106 mg/dL Calcium Level 7.6 L 8.7-10.4 mg/dL Total Bilirubin 0.3 0.2-1.0 mg/dL Aspartate Amino Transferase (AST) 18 <34 U/L Alanine Aminotransferase (ALT) 14 7-40 U/L Alkaline Phosphatase 85 46-116 U/L Total Protein 5.9 5.7-8.2 g/dL Albumin 3.6 3.2-4.8 g/dL Urine Color Yellow Yellow Urine Clarity Turbid H Clear Urine pH 5.5 5.0-9.0 Urine Specific [place] 1.016 1.001-1.035 Urine Protein Negative Negative Urine Ketones Negative Negative Urine Blood 2+ H Negative /uL Urine Nitrite Negative Negative Urine Bilirubin Negative Negative Urine Urobilinogen Normal Negative mg/dL Urine Leukocyte Esterase 2+ Negative /uL Urine RBC 11 0 - 4 /hpf Urine Microscopic WBC 13 H 0-5 /HPF Urine Squamous Epithelial Cells Mod <5 /hpf Urine Bacteria None seen None Seen /hpf Urine Hyaline Casts Few 0 - 2 /lpf Urine Yeast (Budding) Occasional None Seen /hpf Urine Glucose Normal Normal mg/dL Test 10/07/24 13:50 10/07/24 11:50 Range/Units Lactic Acid Level 1.3 0.4-2.0 mmol/L Prothrombin Time 12.5 H 9.3-11.8 sec Prothrombin Time INR 1.20 H 0.9-1.15 Activated Partial Thromboplast Time 34.0 24.5-34.5 SEC Microbiology Date/Time Source Procedure Growth Status 10/08/24 14:55 Abdomen Gram Stain - Final Resulted 10/08/24 14:55 Abdomen Wound Culture - Preliminary Resulted 10/07/24 13:50 Blood Blood Culture - Preliminary NO GROWTH AFTER 24 HOURS OF INCUBATION. Resulted Plan/Recommendation ASSESSMENT AND PLAN: ID Problem List: - Status-post infected ventral hernia repair with mesh - Abdominal wall abscess (gas-containing) - MRSA, ESBL E. coli, and Proteus infection - Diabetes mellitus - Hypertension - Hyperlipidemia - Obesity Assessment This is a 69-year-old female with a history of hypertension, hyperlipidemia, diabetes mellitus, obesity, and prior cholecystectomy and hernia repair. She presents to the ED with an abdominal wound following a hernia repair performed on September 08. Her postoperative course was complicated by infection involving an extruded mesh, noted to have significant loss of adhesions and required enter otomy repair and hernia repair. Initial mesh cultures grew MRSA, ESBL E. coli, and Proteus species. The patient reports leakage from the abdominal wound and sharp abdominal pain. Examination reveals a mildly dehisced midline wound with clear serosanguinous and purulent drainage. Current imaging demonstrates a 13.7 cm ventral abdominal wall gas-containing fluid collection, concerning for abscess with postsurgical changes; no evidence of bowel obstruction. Blood cultures are no growth to date; wound cultures show gram-negative rods. Of note, intraabdominal Proteus species were found to be resistant to levofloxacin. The patient was previously treated with a seven-day course of meropenem and vancomycin during her hospitalization, and was discharged on Bactrim and levofloxacin to complete a fourteen-day course; however, culture data revealed resistance to levofloxacin and ongoing evidence of infection. Plan: - Switch antibiotic therapy to ertapenem, as both ESBL and Proteus are susceptible - Initiate a minimum two-week course of ertapenem - Arrange IR-guided drainage of the abdominal wall abscess - Follow up on blood cultures - Refer to Dr. Cano and general surgery to reassess for possible further surgical intervention if no improvement after IR drainage - Infectious disease clinic follow-up in two weeks - Patient will require a midline for completion of IV therapy Isolation Precautions: Standard Assessment and plan discussed with the patient as written above. Plan subject to modification per new information or diagnostic updates and may be appended as an addendum. For questions, please contact Infectious Disease. Amanda Sullivan M.D. [facility] Ph: ? Teams text: Electronically signed by: Amanda Sullivan MD, 10/09/2024 History: The patient's chart and medications were reviewed in detail and the patient was seen and examined. History obtained from: patient Ms. Gladis Munoz is a 69-year-old female with a medical history of hypertension, hyperlipidemia, diabetes mellitus, obesity, cholecystectomy, and prior hernia repair. She presents with an abdominal wound with mild dehiscence and purulent drainage after hernia repair (09/08), complicated by mesh infection (MRSA, ESBL E. coli, Proteus), postsurgical abscess, and recent abdominal pain. Review of Systems: A complete 10-system review of systems was conducted and is negative except as noted in the HPI or below. - CONSTITUTIONAL: No report of weight loss, fever, or chills. - HEENT: No changes in vision or hearing. - RESPIRATORY: No shortness of breath or cough. - CV: No palpitations or chest pain. - GI: Reports abdominal pain. Denies nausea, vomiting, or diarrhea. - : No dysuria or urinary frequency. - MSK: No myalgia or joint pain. - SKIN: No rashes or pruritus, except as noted for wound. - NEUROLOGIC: No headache or syncope. - PSYCHIATRIC: No changes in mood, anxiety, or depression. Past Medical History: - Hypertension - Hyperlipidemia - Diabetes mellitus - Obesity Past Surgical History: - Cholecystectomy - Ventral hernia repair (most recently 09/08) - Any additional surgical history not provided. Home Medications: - Bactrim: exact dosing not specified - Levofloxacin: exact dosing not specified - Previous inpatient: meropenem (7 days), vancomycin (duration not specified) - Additional home medications not provided. Allergies: Not provided in transcript. Family History: Not provided in transcript. Social History: Not provided in transcript. Objective: Vital Signs: Not provided in transcript. Admission Weight: Not provided. Physical Exam: General: NAD Neck: Supple. No masses. HEENT: PERRL. Normal lids and conjunctiva. Moist mucous membranes. Oropharynx without lesions, exudates or excessive erythema. Normal appearance of the external aspects of the nose and ears. Heart: Regular rhythm, normal rate. No murmur. No lower extremity edema. Lungs: Normal respiratory effort. Clear to auscultation bilaterally. No wheezes. No crackles. Abdomen: Soft. Mildly tender. Mild dehiscence of midline wound with clear seropurulent drainage from incisional site. Msk: No digital cyanosis. Normal strength and tone in all 4 limbs Skin: Warm and dry, no rashes. Mildly dehisced abdominal wound with purulent drainage. Neuro: Alert. No facial droop or slurred speech. Extra-ocular movements intact. Sensation intact to soft touch in all 4 limbs. Psych: Appropriate mood. Full affect. Oriented to person, place, time, and situation. Lines: Not discussed. Diagnostic Studies: Available studies were reviewed personally. Significant findings outlined below or discussed in Assessment and Plan above. Pertinent Imaging: - CT (abdomen): 13.7 cm ventral abdominal wall gas-containing fluid collection, consistent with abscess. Postsurgical changes. No bowel obstruction. Sigmoid diverticulosis without diverticulitis. Cholecystectomy. - Additional radiology not discussed. Microbiology: - Mesh cultures: MRSA, ESBL E. coli, Proteus (levofloxacin resistant) - Blood cultures: No growth to date. - Wound culture: Gram-negative rods (preliminary, 10/08) Labs: Not discussed. Encounter date: 10/09/2024 Patient Name: Gladis Munoz Plan discussed with: Patient AMANDA SULLIVAN MD Oct 09, 2024 13:22
--- NOTE | 2024-10-09 15:36 | DVHPN2 ---
Subjective Denies any acute symptoms Reviewed: Care Plan, H&P, Medications Changes from previous H/P or p: No Changes General: Per HPI Skin: Other (Leaking abdominal wound from recent surgery) Objective Vitals Vital Signs Date Time Temp Pulse Resp B/P (MAP) Pulse Ox O2 Delivery O2 Flow Rate FiO2 10/09/24 13:17 97.9 63 17 118/79 (92) 95 97.9 10/09/24 08:00 Room Air* 0 21 Intake/Output Intake and Output 10/09/24 07:00 Intake Total 760 ml Output Total 400 ml Balance 360 ml Intake Oral 510 ml IV Total 250 ml Output Urine Total 400 ml # Voids 3 # Bowel Movements 4 General Appearance: Alert, Oriented X3, Cooperative, No acute distress HEENT: Atraumatic, PERRLA Lungs: Clear to auscultation, Normal air movement Cardiovascular: Normal S1, Normal S2 Abdomen: Normal bowel sounds, Soft, No tenderness, Other (Abdominal wound with drainage.) Neuro: Normal gait, Normal speech Skin: Wounds (See nurse notes and pictures) Psych/Mental Status: Mental status NL, Mood NL Medications Current Medications Medications Dose Ordered Sig/Lili Route Start Time Stop Time Status Last Admin Dose Admin Vancomycin HCl 0 ml @ 0 mls/hr UD IV 10/07/24 16:00 Cancel Acetaminophen/ Hydrocodone Bitart 1 tab Q4HP PRN PO 10/07/24 16:00 Ondansetron HCl 4 mg Q4HP PRN IV 10/07/24 16:00 Acetaminophen 650 mg Q6HP PRN PO 10/07/24 16:00 Morphine Sulfate 2 mg Q4HPRN PRN IV 10/07/24 16:00 10/08/24 21:18 2 MG Nitroglycerin 0.4 mg Q5MINP PRN SL 10/07/24 16:00 Morphine Sulfate 2 mg Q30M PRN IV 10/07/24 16:00 Atorvastatin Calcium 20 mg HS PO 10/08/24 22:00 10/08/24 21:26 20 MG Aspirin 81 mg DAILY PO 10/08/24 10:00 10/09/24 10:30 81 MG Fluoxetine HCl 10 mg DAILY PO 10/08/24 10:00 10/09/24 10:30 10 MG Patient Own Medication 1 tab DAILY PO 10/08/24 10:00 Lisinopril 10 mg DAILY PO 10/08/24 10:00 10/09/24 10:31 10 MG Patient Own Medication 1 tab DAILY@LUNCH PO 10/08/24 12:00 Diagnostic Test (Pha) 1 strip ACHS 10/07/24 22:00 10/09/24 13:05 1 STRIP Insulin Human Regular ACHS SC 10/07/24 22:00 10/09/24 13:04 4 UNITS Dextrose 50 ml UD PRN IV 10/07/24 17:30 Sodium Chloride 1,000 ml @ 100 mls/hr Q10H IV 10/08/24 07:45 10/08/24 17:55 100 MLS/HR Meropenem 50 ml @ 17 mls/hr Q8HR IV 10/08/24 14:00 10/09/24 13:05 17 MLS/HR Laboratory Results Laboratory Tests 10/08/24 05:03 10/09/24 06:58 Urinalysis Test 10/07/24 17:00 Urine Color Yellow (Yellow) Urine Clarity Turbid (Clear) H Urine pH 5.5 (5.0-9.0) Urine Specific [place] 1.016 (1.001-1.035) Urine Protein Negative (Negative) Urine Ketones Negative (Negative) Urine Blood 2+ /uL (Negative) H Urine Nitrite Negative (Negative) Urine Bilirubin Negative (Negative) Urine Urobilinogen Normal mg/dL (Negative) Urine Leukocyte Esterase 2+ /uL (Negative) Urine RBC 11 /hpf (0 - 4) Urine Microscopic WBC 13 /HPF (0-5) H Urine Squamous Epithelial Cells Mod /hpf (<5) Urine Bacteria None seen /hpf (None Seen) Urine Hyaline Casts Few /lpf (0 - 2) Urine Yeast (Budding) Occasional /hpf (None Urine Glucose Normal mg/dL (Normal) Microbiology Microbiology Date/Time Source Procedure Growth Status 10/08/24 14:55 Abdomen Gram Stain - Final Resulted 10/08/24 14:55 Abdomen Wound Culture - Preliminary Resulted 10/07/24 13:50 Blood Blood Culture - Preliminary NO GROWTH AFTER 48 HOURS OF INCUBATION. Resulted Labs and/or images reviewed: Labs reviewed by me, Image(s) reviewed by me Assessment/Plan Assessment/Plan Impression: -sepsis -infected abdominal postop wound. -history of ESBL, MRSA, Proteus mirabilis -obesity -recent hernia mesh replacement -L1 compression fracture -primary hypertension -diabetes mellitus -dyslipidemia Plan: Events: -surgical consultation: Recommendations reviewed -wound care consultation : Plans for wound VAC -antibiotics per Infectious Disease -pain management -repeat labs in a.m. Total time spent with patient discussing and formulating plan of care: 35 minutes. This medical document was created using an electronic medical record system with [employer] dictation system. Although this document has been carefully reviewed, there may still be some phonetic and typographical errors. These areas are purely typographical due to imperfections of the software programs, and do not reflect any compromise in the patient's medical care. Plan discussed with: Patient, Other (RN) My Orders Orders - BEATRIS BONE NP Procedure Category Date Status Time Ertapenem Sod Inj PHA 10/10/24 Logged ([employer]) 10:00 Basic Metabolic Panel LAB 10/10/24 Verified 04:00 Complete Blood Count LAB 10/10/24 Verified 04:00 * Radiologist Consult CONS 10/09/24 Transmitted 15:30 Date of Service: Oct 09, 2024 Billing Provider: BEATRIS BONE NP Common Visit Codes: [id number] INP/OBS CARE(HIGH) BEATRIS BONE NP Oct 09, 2024 15:36
[2024-10-10] VITALS (7 sets, daily range): BP systolic 116–149; BP diastolic 64–85; PULSE 63–72; RESP 16–18; TEMP 97.4–98.3; O2SAT 96–100
[2024-10-10 06:45] LABS: Basophils # (auto) 0 10 ^3/uL (0-0.2); Basophils % (auto) 0.2 % (0.0-2.0); Eosinophils # (auto) 0.1 10 ^3/uL (0-0.8); Eosinophils % (auto) 1.6 % (0.0-7.0); Hematocrit 29.3 % (36.0-46.0); Hemoglobin 9.7 g/dL (12.2-16.2); Lymphocytes # (auto) 2.3 10 ^3/uL (0.4-5.4); Mean Corpuscular Hemoglobin 28.4 pg (28.0-32.0); Mean Corpuscular Hgb Conc. 33.1 g/dL (32.0-36.0); Mean Corpuscular Volume 85.9 fL (80.0-100.0); Monocytes # (auto) 0.6 10 ^3/uL (0-1.3); Monocytes % (auto) 9.1 % (0.0-12.0); Neutrophils # (auto) 3.2 10 ^3/uL (1.6-8.6); Neutrophils % (auto) 52.1 % (37.0-80.0); Nucleated Red Blood Cells % 0.2 %; Platelet Count (auto) 310 10^3/uL (140-450); Red Blood Cells 3.41 10^6/uL (4.0-5.20); Red Cell Distribution Width 14.6 % (11.8-14.3); White Blood Cell 6.1 10^3/uL (4.4-10.8)
[2024-10-10 06:48] LABS: Anion Gap 11 (5-15); Carbon Dioxide 23 mmol/L (20-31); Potassium 3.9 mmol/L (3.5-5.1); Sodium 144 mmol/L (136-145)
[2024-10-10 06:49] LABS: Calcium 9.1 mg/dL (8.7-10.4)
[2024-10-10 06:51] LABS: Chloride 110 mmol/L (98-107)
[2024-10-10 06:54] LABS: BUN/Creatinine Ratio 13.6 (10.0-20.0)
[2024-10-10 06:55] LABS: Blood Urea Nitrogen 8 mg/dL (9-23); Glucose 147 mg/dL (74-106)
[2024-10-10] MEDS: ERTAPENEM SOD INJ 1 GM in SODIUM CHL 0.9% 50 ML IV SCH (09:42)
--- NOTE | 2024-10-10 13:11 | DVHPN2 ---
Subjective Denies any acute symptoms Reviewed: Care Plan, H&P, Medications Changes from previous H/P or p: No Changes General: Per HPI Skin: Other (Leaking abdominal wound from recent surgery) Objective Vitals Vital Signs Date Time Temp Pulse Resp B/P (MAP) Pulse Ox O2 Delivery O2 Flow Rate FiO2 10/10/24 09:43 128/70 10/10/24 09:00 97.8 69 18 97 97.8 10/10/24 08:00 Room Air* 0 21 Intake/Output Intake and Output 10/10/24 07:00 Intake Total 2600 ml Balance 2600 ml Intake Oral 800 ml IV Total 1800 ml # Voids 6 # Bowel Movements 2 General Appearance: Alert, Oriented X3, Cooperative, No acute distress HEENT: Atraumatic, PERRLA Lungs: Clear to auscultation, Normal air movement Cardiovascular: Normal S1, Normal S2 Abdomen: Normal bowel sounds, Soft, No tenderness, Other (Abdominal wound with drainage.) Neuro: Normal gait, Normal speech Skin: Wounds (See nurse notes and pictures) Psych/Mental Status: Mental status NL, Mood NL Medications Current Medications Medications Dose Ordered Sig/Lili Route Start Time Stop Time Status Last Admin Dose Admin Vancomycin HCl 0 ml @ 0 mls/hr UD IV 10/07/24 16:00 Cancel Acetaminophen/ Hydrocodone Bitart 1 tab Q4HP PRN PO 10/07/24 16:00 Ondansetron HCl 4 mg Q4HP PRN IV 10/07/24 16:00 Acetaminophen 650 mg Q6HP PRN PO 10/07/24 16:00 Morphine Sulfate 2 mg Q4HPRN PRN IV 10/07/24 16:00 10/08/24 21:18 2 MG Nitroglycerin 0.4 mg Q5MINP PRN SL 10/07/24 16:00 Morphine Sulfate 2 mg Q30M PRN IV 10/07/24 16:00 Atorvastatin Calcium 20 mg HS PO 10/08/24 22:00 10/09/24 21:18 20 MG Aspirin 81 mg DAILY PO 10/08/24 10:00 10/10/24 09:42 81 MG Fluoxetine HCl 10 mg DAILY PO 10/08/24 10:00 10/10/24 09:42 10 MG Patient Own Medication 1 tab DAILY PO 10/08/24 10:00 Lisinopril 10 mg DAILY PO 10/08/24 10:00 10/10/24 09:43 10 MG Patient Own Medication 1 tab DAILY@LUNCH PO 10/08/24 12:00 Diagnostic Test (Pha) 1 strip ACHS 10/07/24 22:00 10/10/24 12:39 1 STRIP Insulin Human Regular ACHS SC 10/07/24 22:00 10/10/24 12:40 3 UNITS Dextrose 50 ml UD PRN IV 10/07/24 17:30 Sodium Chloride 1,000 ml @ 100 mls/hr Q10H IV 10/08/24 07:45 10/10/24 09:44 100 MLS/HR Ertapenem 1 gm/ Sodium Chloride 50 ml @ 100 mls/hr DAILY IV 10/10/24 10:00 10/10/24 09:42 100 MLS/HR Laboratory Results Laboratory Tests 10/10/24 05:22 Chemistry Test 10/10/24 05:22 Calcium Level 9.1 mg/dL (8.7-10.4) Urinalysis Test 10/07/24 17:00 Urine Color Yellow (Yellow) Urine Clarity Turbid (Clear) H Urine pH 5.5 (5.0-9.0) Urine Specific [place] 1.016 (1.001-1.035) Urine Protein Negative (Negative) Urine Ketones Negative (Negative) Urine Blood 2+ /uL (Negative) H Urine Nitrite Negative (Negative) Urine Bilirubin Negative (Negative) Urine Urobilinogen Normal mg/dL (Negative) Urine Leukocyte Esterase 2+ /uL (Negative) Urine RBC 11 /hpf (0 - 4) Urine Microscopic WBC 13 /HPF (0-5) H Urine Squamous Epithelial Cells Mod /hpf (<5) Urine Bacteria None seen /hpf (None Seen) Urine Hyaline Casts Few /lpf (0 - 2) Urine Yeast (Budding) Occasional /hpf (None Urine Glucose Normal mg/dL (Normal) Microbiology Microbiology Date/Time Source Procedure Growth Status 10/08/24 14:55 Abdomen Gram Stain - Final Resulted 10/08/24 14:55 Wound Culture - Preliminary Proteus mirabilis Resulted 10/07/24 13:50 Blood Blood Culture - Preliminary NO GROWTH AFTER 48 HOURS OF INCUBATION. Resulted Labs and/or images reviewed: Labs reviewed by me, Image(s) reviewed by me Assessment/Plan Assessment/Plan Impression: -sepsis -infected abdominal postop wound. -history of ESBL, MRSA, Proteus mirabilis -obesity -recent hernia mesh replacement -L1 compression fracture -primary hypertension -diabetes mellitus -dyslipidemia Plan: Events: No events overnight. Midline catheter placed. ID recommendations reviewed. Plans for wound VAC tomorrow. DC planning tomorrow once wound VAC has been established and IV antibiotics have been established. Orders placed with social service for duration of medication. Dr. Meliton Sullivan to manage as outpatient. -surgical consultation: Recommendations reviewed -wound care consultation : Plans for wound VAC -antibiotics per Infectious Disease -pain management -repeat labs in a.m. Total time spent with patient discussing and formulating plan of care: 35 minutes. This medical document was created using an electronic medical record system with [employer] dictation system. Although this document has been carefully reviewed, there may still be some phonetic and typographical errors. These areas are purely typographical due to imperfections of the software programs, and do not reflect any compromise in the patient's medical care. Plan discussed with: Patient, Other (RN) My Orders Orders - BEATRIS BONE NP Procedure Category Date Status Time Ertapenem Sod Inj PHA 10/10/24 In Process (Invanz) 10:00 Ss Consult To Arrange EMETERIO 10/10/24 Transmitted Home Iv 13:04 Date of Service: Oct 10, 2024 Billing Provider: BEATRIS BONE NP Common Visit Codes: [id number] INP/OBS CARE(HIGH) BEATRIS BONE NP Oct 10, 2024 13:11
[2024-10-11] VITALS (8 sets, daily range): BP systolic 124–142; BP diastolic 72–82; PULSE 61–83; RESP 16–20; TEMP 97.1–98.3; O2SAT 96–99
--- NOTE | 2024-10-11 11:24 | DVH ---
US ABDOMEN LIMITED, HISTORY: POSSIBLE ABDOMINAL ABSCESS DRAINAGE TECHNICAL DATA: Transverse and longitudinal sonographic images were obtained of the midline abdomen w all. COMPARISON: None FINDINGS: IMPRESSION: Small 4.2 x 1.6 x 2.6 cm area of fluid in the midline abdominal wall in a larger complex area of infl ammation and gas.
--- NOTE | 2024-10-11 12:46 | DVHDS2 ---
Discharge Summary Date of Admission Oct 07, 2024 at 15:56 Date of Discharge: Oct 11, 2024 Admitting Diagnosis Abdominal wound with abscess Labs/Diagnostic Data: Laboratory Results Test 10/10/24 12:05 10/10/24 05:22 10/08/24 05:03 10/07/24 17:00 POC Glucose 181 mg/dl (70-106) White Blood Count 6.1 10^3/uL (4.4-10.8) Red Blood Count 3.41 10^6/uL (4.0-5.20) Hemoglobin 9.7 g/dL (12.2-16.2) Hematocrit 29.3 % (36.0-46.0) Mean Corpuscular Volume 85.9 fL (80.0-100.0) Mean Corpuscular Hemoglobin 28.4 pg (28.0-32.0) Mean Corpuscular Hemoglobin Concent 33.1 g/dL (32.0-36.0) Red Cell Distribution Width 14.6 % (11.8-14.3) Platelet Count 310 10^3/uL (140-450) Mean Platelet Volume 8.0 fL (6.9-10.8) Neutrophils (%) (Auto) 52.1 % (37.0-80.0) Lymphocytes (%) (Auto) 37.0 % (10.0-50.0) Monocytes (%) (Auto) 9.1 % (0.0-12.0) Eosinophils (%) (Auto) 1.6 % (0.0-7.0) Basophils (%) (Auto) 0.2 % (0.0-2.0) Neutrophils # (Auto) 3.2 10 ^3/uL (1.6-8.6) Lymphocytes # (Auto) 2.3 10 ^3/uL (0.4-5.4) Monocytes # (Auto) 0.6 10 ^3/uL (0-1.3) Eosinophils # (Auto) 0.1 10 ^3/uL (0-0.8) Basophils # (Auto) 0 10 ^3/uL (0-0.2) Nucleated Red Blood Cells 0.2 % Sodium Level 144 mmol/L (136-145) Potassium Level 3.9 mmol/L (3.5-5.1) Chloride Level 110 mmol/L (98-107) Carbon Dioxide Level 23 mmol/L (20-31) Anion Gap 11 (5-15) Blood Urea Nitrogen 8 mg/dL (9-23) Creatinine 0.59 mg/dL (0.550-1.02) Glomerular Filtration Rate Calc 98 mL/min (>90) BUN/Creatinine Ratio 13.6 (10.0-20.0) Serum Glucose 147 mg/dL (74-106) Calcium Level 9.1 mg/dL (8.7-10.4) Total Bilirubin 0.3 mg/dL (0.2-1.0) Aspartate Amino Transferase (AST) 18 U/L (<34) Alanine Aminotransferase (ALT) 14 U/L (7-40) Alkaline Phosphatase 85 U/L (46-116) Total Protein 5.9 g/dL (5.7-8.2) Albumin 3.6 g/dL (3.2-4.8) Urine Color Yellow (Yellow) Urine Clarity Turbid (Clear) Urine pH 5.5 (5.0-9.0) Urine Specific [place] 1.016 (1.001-1.035) Urine Protein Negative (Negative) Urine Ketones Negative (Negative) Urine Blood 2+ /uL (Negative) Urine Nitrite Negative (Negative) Urine Bilirubin Negative (Negative) Urine Urobilinogen Normal mg/dL (Negative) Urine Leukocyte Esterase 2+ /uL (Negative) Urine RBC 11 /hpf (0 - 4) Urine Microscopic WBC 13 /HPF (0-5) Urine Squamous Epithelial Cells Mod /hpf (<5) Urine Bacteria None seen /hpf (None Seen) Urine Hyaline Casts Few /lpf (0 - 2) Urine Yeast (Budding) Occasional /hpf (None Urine Glucose Normal mg/dL (Normal) Test 10/07/24 13:50 10/07/24 11:50 Lactic Acid Level 1.3 mmol/L (0.4-2.0) Prothrombin Time 12.5 sec (9.3-11.8) Prothrombin Time INR 1.20 (0.9-1.15) Activated Partial Thromboplast Time 34.0 SEC (24.5-34.5) Other Laboratory Tests 10/10/24 05:22 Brief Hx & Hospital Course: History of Present Illness Gladis Munoz is a 69-year-old female with past medical history of hypertension, hyperlipidemia, diabetes, obesity, cholecystectomy, and hernia repair who presents to the ED with an abdominal wound that was leaking that started this morning. Patient states that she had surgery last month and is back due to the leaking. Patient complains of pain that is 5/10 sharp and constant. Patient denies any chest pain, shortness of breath, fever, chills, lightheadedness, weakness, dizziness, recent trauma or injury, recent sick contacts, recent ingestion of spoiled food, nausea, vomiting, or diarrhea. Course of hospitalization: Surgical consultation was placed. Orders were received for bedside wound care, followed by placement of wound VAC. No surgical intervention will be performed at this time. Infectious Disease consultation was placed. Patient had midline catheter placed. Wound did continued to grow ESBL as well as Proteus mirabilis. Patient was started on Meropenem which was switched to Invanz while in the hospital. Patient will have wound VAC placed today. IV antibiotic therapy we will be established as an outpatient. Patient will follow up with Dr. Meliton Sullivan, infectious disease doctor for management of the patient's IV antibiotics as an outpatient. She will continue all previous home medications. Patient will also follow up with Dr. Cano in 2-3 weeks. Patient is agreeable with discharge plan. All questions answered. Physical exam General: Alert and Oriented x3. No acute distress. Well-nourished. Obese Eyes: EOMI. Anicteric. HENT: Moist mucous membranes. Lungs: Clear to auscultation bilaterally. No accessory muscle use. Cardiovascular: Regular rate and rhythm. No murmur. No JVD. Abdomen: Soft, non-tender and non-distended. No palpable masses. Wound dressing dry and intact Extremities: No edema. Non-tender. Skin: No rashes or lesions. Warm. Neurologic: No focal neurological deficits. CN II-XII grossly intact, but not individually tested. Psychiatric: Cooperative. Appropriate mood and affect. Total time spent with patient discussing and formulating plan of care: 35 minutes. This medical document was created using an electronic medical record system with [employer] system. Although this document has been carefully reviewed, there may still be some phonetic and typographical errors. These areas are purely typographical due to imperfections of the software programs, and do not reflect any compromise in the patient's medical care. Consults/Reason for consult Surgery: Postop wound infection Infectious disease: ESBL Condition at Discharge: Guarded Final Diagnosis/Problems List Postop abdominal wound infection Secondary diagnosis: -sepsis -infected abdominal postop wound. -history of ESBL, MRSA, Proteus mirabilis -obesity -recent hernia mesh replacement -L1 compression fracture -primary hypertension -diabetes mellitus -dyslipidemia Discharge Disposition: Home with Health Services Discharge Instruct/Medications Diet: Consistent carbohydrate, Cardiac 2g Na,low cholest Activity: No Restrictions, As Tolerated Follow Up/Referral: Follow up with PCP in 1-2 weeks, Follow up with Dr. Cano in 2-3 weeks Follow up with Dr. Meliton Sullivan in two weeks Medications: Invanz 1 g IV for a total of 14 day course Continue all previous home medications 36 Discharge Statement: "Patient was advised to return to the ER or call 911 if any headaches, dizziness, shortness of breath, chest pain, abdominal pain, bleeding, fevers, or worsening of medical condition. Patient was counseled about treatment plan, medications, possible side effects, patientverbalized understanding. All questions were answered to the best of my ability. This discharge took greater then 30 minutes in planning, reviewing documentation, counseling the patient, and discussing with other team members." ASSESSMENT ASSESSMENT Assessment Postop abdominal wound infection Date of Service: Oct 11, 2024 Billing Provider: BEATRIS BONE NP Common Visit Codes: 22745-WGZ/OBS DISCH DAY >30min BEATRIS BONE NP Oct 11, 2024 12:46
[2024-10-11] MEDS: MORPHINE SULFATE 4 MG/ML SYR/VIAL IV PRN (13:44)
--- NOTE | 2024-10-11 15:44 | DVH ---
US ULTRA GUIDED ABCESS DRAINAGE HISTORY: ABD ABSCESS DRAINAGE PROCEDURE: An informed consent was obtained. The patient was placed supine on the gurney. Ultrasound was used to scan the abdominal wall. No fluid was seen. No drainage was then performed. FINDINGS: No fluid was seen in the area of interest in the abdominal wall so no drainage was performe d. IMPRESSION: No fluid was seen in the area of interest in the abdominal wall so no drainage was performed.
[2024-10-12] VITALS (8 sets, daily range): BP systolic 128–147; BP diastolic 62–80; PULSE 59–79; RESP 16–18; TEMP 97.4–98.2; O2SAT 95–97
[2024-10-12] MEDS ORDERED: LINE1TAB6 PO (12:33)
--- NOTE | 2024-10-12 12:35 | DVHPN2 ---
Subjective Denies any acute symptoms Reviewed: Care Plan, H&P, Medications Changes from previous H/P or p: No Changes General: Per HPI Skin: Other (Leaking abdominal wound from recent surgery) Objective Vitals Vital Signs Date Time Temp Pulse Resp B/P (MAP) Pulse Ox O2 Delivery O2 Flow Rate FiO2 10/12/24 11:34 61 15 143/76 10/12/24 09:00 98.2 95 98.2 10/12/24 08:05 Room Air* 0 21 Intake/Output Intake and Output 10/12/24 07:00 Intake Total 2080 ml Balance 2080 ml Intake Oral 1380 ml IV Total 700 ml # Voids 6 # Bowel Movements 3 General Appearance: Alert, Oriented X3, Cooperative, No acute distress HEENT: Atraumatic, PERRLA Lungs: Clear to auscultation, Normal air movement Cardiovascular: Normal S1, Normal S2 Abdomen: Normal bowel sounds, Soft, No tenderness, Other (Abdominal wound with drainage.) Neuro: Normal gait, Normal speech Skin: Dry, Intact, Wounds (See nurse notes and pictures) Psych/Mental Status: Mental status NL, Mood NL Medications Current Medications Medications Dose Ordered Sig/Lili Route Start Time Stop Time Status Last Admin Dose Admin Vancomycin HCl 0 ml @ 0 mls/hr UD IV 10/07/24 16:00 Cancel Acetaminophen/ Hydrocodone Bitart 1 tab Q4HP PRN PO 10/07/24 16:00 Ondansetron HCl 4 mg Q4HP PRN IV 10/07/24 16:00 Acetaminophen 650 mg Q6HP PRN PO 10/07/24 16:00 Nitroglycerin 0.4 mg Q5MINP PRN SL 10/07/24 16:00 Morphine Sulfate 2 mg Q30M PRN IV 10/07/24 16:00 Atorvastatin Calcium 20 mg HS PO 10/08/24 22:00 10/11/24 22:25 20 MG Aspirin 81 mg DAILY PO 10/08/24 10:00 10/12/24 09:21 81 MG Fluoxetine HCl 10 mg DAILY PO 10/08/24 10:00 10/12/24 09:20 10 MG Patient Own Medication 1 tab DAILY PO 10/08/24 10:00 Lisinopril 10 mg DAILY PO 10/08/24 10:00 10/12/24 09:20 10 MG Patient Own Medication 1 tab DAILY@LUNCH PO 10/08/24 12:00 Diagnostic Test (Pha) 1 strip ACHS 10/07/24 22:00 10/12/24 11:39 1 STRIP Insulin Human Regular ACHS SC 10/07/24 22:00 10/12/24 11:39 3 UNITS Dextrose 50 ml UD PRN IV 10/07/24 17:30 Sodium Chloride 1,000 ml @ 100 mls/hr Q10H IV 10/08/24 07:45 10/12/24 09:27 100 MLS/HR Ertapenem 1 gm/ Sodium Chloride 50 ml @ 100 mls/hr DAILY IV 10/10/24 10:00 10/12/24 09:21 100 MLS/HR Morphine Sulfate 2 mg Q4HPRN PRN IV 10/11/24 13:30 10/12/24 11:34 2 MG Laboratory Results Laboratory Tests 10/10/24 05:22 Urinalysis Test 10/07/24 17:00 Urine Color Yellow (Yellow) Urine Clarity Turbid (Clear) H Urine pH 5.5 (5.0-9.0) Urine Specific [place] 1.016 (1.001-1.035) Urine Protein Negative (Negative) Urine Ketones Negative (Negative) Urine Blood 2+ /uL (Negative) H Urine Nitrite Negative (Negative) Urine Bilirubin Negative (Negative) Urine Urobilinogen Normal mg/dL (Negative) Urine Leukocyte Esterase 2+ /uL (Negative) Urine RBC 11 /hpf (0 - 4) Urine Microscopic WBC 13 /HPF (0-5) H Urine Squamous Epithelial Cells Mod /hpf (<5) Urine Bacteria None seen /hpf (None Seen) Urine Hyaline Casts Few /lpf (0 - 2) Urine Yeast (Budding) Occasional /hpf (None Urine Glucose Normal mg/dL (Normal) Microbiology Microbiology Date/Time Source Procedure Growth Status 10/08/24 14:55 Abdomen Gram Stain - Final Complete 10/08/24 14:55 Wound Culture - Final Proteus mirabilis Escherichia coli - ESBL Enterococcus faecalis - VRE Complete 10/07/24 13:50 Blood Blood Culture - Preliminary NO GROWTH AFTER 72 HOURS OF INCUBATION. Resulted Labs and/or images reviewed: Labs reviewed by me, Image(s) reviewed by me Assessment/Plan Assessment/Plan Impression: -sepsis -infected abdominal postop wound. -history of ESBL, VRE, Proteus mirabilis -obesity -recent hernia mesh replacement -L1 compression fracture -primary hypertension -diabetes mellitus -dyslipidemia Plan: Events: No events overnight. Midline catheter placed. Patient now has VRE in the abdominal wound. Patient will be started on Zyvox. Discussed case with Infectious Disease doctor, Meliton Sullivan. Patient will be placed on p.o. Zyvox at time of discharge. First dose to be started in the hospital -surgical consultation: Recommendations reviewed -wound care consultation : Plans for wound VAC -antibiotics per Infectious Disease -pain management Total time spent with patient discussing and formulating plan of care: 35 minutes. This medical document was created using an electronic medical record system with [employer] dictation system. Although this document has been carefully reviewed, there may still be some phonetic and typographical errors. These areas are purely typographical due to imperfections of the software programs, and do not reflect any compromise in the patient's medical care. Plan discussed with: Patient, Other (RN) My Orders Orders - BEATRIS BONE NP Procedure Category Date Status Time Discharge DISCHARGE 10/11/24 Transmitted 12:38 Ultra Guided Abcess US 10/11/24 Resulted Drainage 12:56 Date of Service: Oct 12, 2024 Billing Provider: BEATRIS BONE NP Common Visit Codes: [id number] INP/OBS CARE(HIGH) BEATRIS BONE NP Oct 12, 2024 12:35
[2024-10-12] MEDS: LINEZOLID 600MG TABLET PO SCH (14:23)
== END 2024-10-12 20:10 | disposition home health service (06) | DRG 871 ==
LOC: ER 11:07 → OVERFLOW 15:56 → EAST 22:10
PROVIDERS: ADMIT Nurse Practitioner Acute Care; ATTEND Nurse Practitioner Acute Care
PROC: 05HD33Z Insertion of Infusion Device into Right Cephalic Vein, Percutaneous Approach (ICD-10-PCS; principal; 2024-10-09)
PROC: B54MZZA Ultrasonography of Right Upper Extremity Veins, Guidance (ICD-10-PCS; 2024-10-09)
DX: A41.9 Sepsis, unspecified organism (principal); N17.0 Acute kidney failure with tubular necrosis; L02.211 Cutaneous abscess of abdominal wall; T81.41XA Infection following a procedure, superficial incisional surgical site, initial encounter; M48.56XA Collapsed vertebra, not elsewhere classified, lumbar region, initial encounter for fracture; T81.30XA Disruption of wound, unspecified, initial encounter; B37.49 Other urogenital candidiasis; D64.9 Anemia, unspecified; K57.30 Diverticulosis of large intestine without perforation or abscess without bleeding; B95.62 Methicillin resistant Staphylococcus aureus infection as the cause of diseases classified elsewhere; B96.4 Proteus (mirabilis) (morganii) as the cause of diseases classified elsewhere; E11.9 Type 2 diabetes mellitus without complications; E78.5 Hyperlipidemia, unspecified; I10 Essential (primary) hypertension; E66.01 Morbid (severe) obesity due to excess calories; M43.8X6 Other specified deforming dorsopathies, lumbar region; Z90.49 Acquired absence of other specified parts of digestive tract; Z68.35 Body mass index [BMI] 35.0-35.9, adult; Z86.19 Personal history of other infectious and parasitic diseases; Z80.0 Family history of malignant neoplasm of digestive organs; Z79.84 Long term (current) use of oral hypoglycemic drugs; Z79.82 Long term (current) use of aspirin; Z79.899 Other long term (current) drug therapy; Y84.8 Other medical procedures as the cause of abnormal reaction of the patient, or of later complication, without mention of misadventure at the time of the procedure; Y92.89 Other specified places as the place of occurrence of the external cause
CPT/HCPCS: 36415; 71045; 74176; 75989; 76705; 80048; 80053; 81001; 82565; 82962; 83605; 85025; 85610; 85730; 87040; 87077; 87081; 87186; 87205; 96361; 96365; 99291; G0378; J1335; J1815; J2185; J2543

== ENCOUNTER 2024-10-27 18:09 | Emergency (ER) | payer MEDICAID, MEDICARE ==
[~2024-10-27] VITALS: Ht 152.4 cm; Wt 87.0 kg
[~2024-10-27 18:09] MED LIST changes: +BUPR-581 PO; +FLUO10TA18 PO; +LINE1TAB6 PO; +LISI10TA34 PO; -LISI20TA56 PO; +LURA40TA3 PO
--- NOTE | 2024-10-27 18:31 | ED.PDOC ---
History of Present Illness HPI Comments 69 year old female with history of hypertension, diabetes and dyslipidemia status post recent hernia repair brought in by self for evaluation of a displaced right upper extremity midline. Patient states she had been receiving IV antibiotics after her hernia repair and finished the antibiotics yesterday. She was scheduled for removal of the midline, however about an hour ago she noticed that it was out. She denies any pain, swelling, bleeding or bruising. At triage, the right upper extremity midline was noted to be completely out of the extremity intact. Time Seen by MD: 18:14 Primary Care Provider: JOHNNY ARGUELLES Allergies: Coded Allergies: NO KNOWN ALLERGIES (Unverified , 06/27/23) Home Meds Active Scripts Linezolid (Zyvox) 600 Mg Tab, 600 MG PO BID for 14 Days, #28 TAB Prov:BEATRIS BONE NP 10/12/24 Levofloxacin Hemihydrate (LEVAQUIN 500 MG) 500 Mg Tab, 500 MG PO DAILY for 10 Days, #10 TAB Prov:GRACIELA GORE MD 09/15/24 Sulfamethoxazole-Trimethoprim (Bactrim) 1 Tab Tab, 1 TAB PO BID for 10 Days, #20 TAB Prov:GRACIELA GORE MD 09/15/24 Reported Medications Lurasidone Hydrochloride (Lurasidone Hydrochloride) 40 Mg Tab, 1 TAB PO DAILY 10/07/24 Fluoxetine Hcl (Fluoxetine Hcl) 10 Mg Tab, 1 CAP PO DAILY 10/07/24 Lisinopril (Lisinopril) 10 Mg Tab, 1 TAB PO DAILY 10/07/24 Bupropion Hcl (Bupropion Hcl Xl) 300 Mg Tab, 1 TAB PO DAILY 10/07/24 Aspirin (Aspirin Low Dose) 81 Mg Chw, 81 MG PO DAILY, TAB.CHEW 09/06/24 Atorvastatin Calcium (ATORVASTATIN CALCIUM) 20 Mg Tab, 20 MG PO DAILY, TAB 09/06/24 Glipizide (Glipizide) 5 Mg Tab, 5 MG PO BID, TAB 09/06/24 Metformin Hydrochloride (Metformin Hcl) 500 Mg Tab, 500 MG PO BID, TAB 09/06/24 Past Medical History PAST MEDICAL HISTORY: DM, High Lipids, HTN Surgical History: Hernia Repair CHIN STRAP SEWER History: No Pertinent CHIN STRAP SEWER History Family History Family History: Reviewed,noncontributory to illness Social History Smoker: Non-Smoker Alcohol: Denies ETOH Use Drugs: Denies Drug Use Lives In: Home All Other Systems: Reviewed and Negative (Comprehensive systems review obtained and negative except for what is stated in the HPI.) Physical Exam General Appearance: No Apparent Distress, Obese HEENT: Other (Pupils and face symmetric. Moist mucous membranes.) Neck: Full Range of Motion, Normal Inspection Respiratory: Lungs Clear, No Accessory Muscle Use, No Respiratory Distress, Normal Breath Sounds Cardiovascular: No Edema, No JVD, Regular Rate/Rhythm Breast Exam: Deferred Gastrointestinal: Non Tender, Soft Genitalia: Deferred Pelvic: Deferred Rectal: Deferred Extremities: Other (Right upper extremity prior midline insertion site appears clean, dry and intact. The dressing is presents, however the midline has been completely removed intact. No hemorrhage, hematoma, swelling or tenderness.) Neurologic: Alert (Oriented x4), Normal Affect, Normal Mood, Other (Ambulatory) Cerebellar Function: NOT DONE Reflexes: NOT DONE Skin: Dry, Normal Color, Warm Lymphatic: NOT DONE Was a procedure done? Was a procedure done?: No Differential Dx Considerations may include: Uncomplicated displaced midline, hemorrhage, hematoma, infection, among others X-Ray, Labs, Meds, VS Comment 69-year-old female with a history of hypertension, diabetes, dyslipidemia status post recent hernia repair presenting with a displaced midline Vitals unremarkable Exam unremarkable. The prior right upper extremity midline insertion site appears unremarkable Patient states she finished her antibiotics yesterday, and the midline was scheduled to be removed. Per RN who initially evaluated the patient, the midline was completely out of the skin and appeared intact. On my evaluation, there was no bleeding, hematoma or insertion site tenderness or discoloration. Patient appears stable for discharge with close outpatient follow-up with her primary physician. Time of 1ST Reevaluation: 18:28 Reevaluation 1ST: Unchanged Patient Education/Counseling: Diagnosis, Treatment, Need For Follow Up Family Education/Counseling: No Family Present Departure 1 Departure Time of Disposition: 18:28 Impression: Primary Impression: Displacement of peripherally inserted central catheter (PICC) Disposition: 01 HOME / SELF CARE / HOMELESS Condition: Stable Additional Instructions: Your midline has been completely removed intact. No acute treatment indicated at this time. Follow-up with your primary doctor in 1-2 days. Discharged With: Self Critical Care Note Critical Care Time?: No Stability Stability form required: No Heart Score Heart Score: Heart Score Response (Comments) Value History N/A 0 EKG N/A 0 Age N/A 0 Risk Factors N/A 0 Troponin N/A 0 Total 0 JUVENCIO POLO MD Oct 27, 2024 18:31
[2024-10-27 21:09] VITALS: BP 118/62; PULSE 84; RESP 20; TEMP 98; O2SAT 98
== END 2024-10-27 21:13 | disposition home or self-care (01) ==
LOC: ER 18:09
DX: T82.524A Displacement of infusion catheter, initial encounter (principal); E11.9 Type 2 diabetes mellitus without complications; E78.5 Hyperlipidemia, unspecified; I10 Essential (primary) hypertension; Z98.890 Other specified postprocedural states; Z79.84 Long term (current) use of oral hypoglycemic drugs; Z79.82 Long term (current) use of aspirin; Z79.899 Other long term (current) drug therapy; Y84.8 Other medical procedures as the cause of abnormal reaction of the patient, or of later complication, without mention of misadventure at the time of the procedure; Y92.89 Other specified places as the place of occurrence of the external cause

== ENCOUNTER 2024-11-22 10:33 | Outpatient (CLI) | payer MEDICAID, MEDICARE ==
[2024-11-22 10:54] LABS: Hematocrit 36.6 % (36.0-46.0); Hemoglobin 12.0 g/dL (12.2-16.2); Mean Corpuscular Hemoglobin 29.5 pg (28.0-32.0); Mean Corpuscular Volume 89.9 fL (80.0-100.0); Nucleated Red Blood Cells % 0.0 %
[2024-11-22 11:23] LABS: Alanine Aminotransferase 17 U/L (7-40); Albumin 4.7 g/dL (3.2-4.8); Alkaline Phosphatase 115 U/L (46-116); Anion Gap 11 (5-15); BUN/Creatinine Ratio 17.1 (10.0-20.0); Bilirubin, Total 0.6 mg/dL (0.2-1.0); Blood Urea Nitrogen 12 mg/dL (9-23); Calcium 9.3 mg/dL (8.7-10.4); Carbon Dioxide 26 mmol/L (20-31); Chloride 105 mmol/L (98-107); Glucose 153 mg/dL (74-106); Potassium 4.7 mmol/L (3.5-5.1); Sodium 142 mmol/L (136-145); Total Protein 7.2 g/dL (5.7-8.2)
== END 2024-11-22 17:00 | disposition home or self-care (01) ==
LOC: LAB 10:33
PROVIDERS: ATTEND Internal Medicine
DX: E11.69 Type 2 diabetes mellitus with other specified complication (principal)
CPT/HCPCS: 36415; 80053; 85025